=== PATIENT | female | born 2005 | race Caucasian/White ===

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

== ENCOUNTER 2025-03-26 13:04 | Day surgery (SDC) | payer BC, SELFPAY ==
[2025-03-26] VITALS (9 sets, daily range): BP systolic 111–117; BP diastolic 63–80; PULSE 67–72; RESP 12–16; TEMP 36.1–36.6; O2SAT 100; BMI 29.5
[2025-03-26 13:44] LABS: Internal QC Validated? YES +Cl - CLEAR BKGD; Pregnancy, Urine Negative Negative; Record Kit Lot#,Urine Preg 0000947241
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
[2025-03-26] MEDS: Lactated Ringers 1,000 ML 15 ML IV (13:59)
--- NOTE | 2025-03-26 14:05 | PRE.ANES_ITS ---
ASA Classification* ASA Classification ASA Classification: 1 Assessment & Plan Anesthesia* Anesthesia Assessment Anesthesia Assessment: Discussed sedation and/or anesthesia options, risks, benefits, and alternatives with patient/parents/legal guardian/POA. Questions invited. The patient/parents/legal guardian/POA seems to understand and agrees to proceed with anesthesia plan. Reviewed the physical assessment, medical history, allergy history and patient home medications list prior to surgery/procedure/anesthetic and documented any changes. Performed airway and anesthesia risk assessments. Anesthesia Type Anesthesia Type: General History Source History Obtained from:: Patient and Chart Anesthesia Focused Assessment* Temperature: 97.0 F Pulse Rate: 67 Blood Pressure: 114/63 Respiratory Rate: 12 Pulse Ox: 100 Oxygen Delivery Method: Room Air Airway Assessment Mouth opens: >3 cm Mallampati Score: I Teeth Condition: Intact Neck Range of motion (ROM): Full ROM Labs Anesthesia Preop lab: CBC CHEMISTRY COAG Urine Test Negative Negative 03/26/25 13:15 03/26/25 Tst Clinic Negative 07/20/22 13:09 07/20/22 Pre-Assessment Diagnosis/Proposed Procedure Planned Operative Procedure(s): REMOVAL RIGHT LABIAL CYST Anesthesia History Anesthesia History - steam room attendant: Anesthesia History - steam room attendant Hx Hospitalization No 03/13/25 10:08 Any Problems With Anesthesia No 03/13/25 10:08 Cholinesterase deficiency No 03/13/25 10:08 You/Your Family Experience No 03/13/25 10:08 fever (hyperthermia) with Relationship Recent Exposure to Contagious No 03/26/25 13:29 Disease Does patient have nerve No 03/13/25 10:08 stimulator Patient instructed to have device shut off --Does patient have Pacemaker No 03/26/25 13:29 or ICD? When Was Last Pacemaker Check QUESTION #4 FULL TEXT: You/Your Family Experience fever (hyperthermia) with Anesthesia Last Oral Intake Last Oral intake: Last Oral Intake NPO since 20:00 03/26/25 13:29 Meds taken in AM with sips of No 03/26/25 13:29 water? Meds patient instructed to take am of surgery PONV PONV - steam room attendant: PONV - steam room attendant Female Yes 03/13/25 10:08 HX of Motion Sickness No 03/13/25 10:08 HX of N/V After Surgery No 03/13/25 10:08 Non-Smoker Yes 03/13/25 10:08 Duration of Surgery greater Yes 03/13/25 10:08 than 60 minutes Number of Risk Factors 3 03/13/25 10:08 PONV Score Moderate Risk 03/13/25 10:08 Height & Weight Height & Weight: Anesthesia: Height & Weight Height 5 ft 4 in 03/26/25 13:29 Weight: 78 kg 03/26/25 13:29 Body Mass Index (BMI) 29.5 03/26/25 13:29 Respiratory Assessment Respiratory Assessment - steam room attendant: Respiratory Tract Infection Hx - steam room attendant Hx Respiratory Tract Infection No 03/13/25 10:08 STOP Sleep Apnea STOP Sleep Apnea - steam room attendant: STOP Sleep Apnea - steam room attendant Hx Hypertension No 03/13/25 10:08 Hx Sleep Apnea No 03/13/25 10:08 CPAP BIPAP Do you snore loudly (louder No 03/13/25 10:08 than talking or can be heard Do you often feel tired/ No 03/13/25 10:08 fatigued/ sleepy during daytime? Has anyone observed you stop No 03/13/25 10:08 breathing during sleep? STOP Results Negative 03/13/25 10:08 QUESTION #5 FULL TEXT : Do you snore loudly (louder than talking or can be heard through closed doors)? Tobacco Use History Tobacco Use History - steam room attendant: Tobacco Use History - steam room attendant Tobacco Use Smoking Status Never smoker 03/13/25 10:08 Hx Tobacco Use No 03/13/25 10:08 Years Smoking Packs Smoked per Day Smoking Cessation Date was within the last 15 years Hx Smoking Cessation Date Hx Smoking Cessation Counseling Hematologic Medial History Hematologic Hx - steam room attendant: Hematologic Medical Hx - residential property manager Hx of Blood Transfusion No 03/13/25 10:08 Hx of Transfusion in last 3 No 03/13/25 10:08 Months Date of Last Transfusion (if within last 3 months) Ever experience any problems No 03/13/25 10:08 with transfusion(s)? Specify any problems Hx of Preganancy in last 3 No 03/13/25 10:08 Months Nurse Filling Out Transfusion DSCHRIBER 03/13/25 10:08 & Questions: Date: 03/13/25 03/13/25 10:08 Time: 10:09 03/13/25 10:08 Patient unable to answer at this time (ie. confused, unrespo /Reproduction History /Reproductive History - steam room attendant: /Reproductive Hx- steam room attendant Hx Now No 03/13/25 10:08 Gestational Age (in weeks): EDC: Hx Hx Para Hx Section SAB No 03/13/25 10:08 Active Medications Active Medications: Current Medications Generic Name Dose Route Start Last Admin Trade Name Freq PRN Reason Stop Dose Admin Cefazolin Sodium 2 gm/ Sodium 110 mls @ 200 mls/hr 03/26/25 14:30 Chloride IV 03/26/25 15:02 INTRAOP ONE Lactated Ringer's 1,000 mls @ 15 mls/hr 03/26/25 13:15 03/26/25 13:59 IV 15 mls/hr .Q48H RHEA Administration PFSH Medical History Wears contact lenses Wears glasses Marijuana use Low iron Non-smoker Contraceptive management Home Medications ?Medication ?Instructions ?Recorded ?Last Taken ?Type ADRENAL SUPPORT 2 cap PO BID 03/13/25 History dextroamphetamine-amphetamine 5 mg 1 tab PO BID 03/24/25 History tablet mecobalamin (vitamin B12) 1,000 1,000 mcg PO DAILY Unknown History mcg chewable tablet doxycycline hyclate 100 mg capsule 100 mg PO BID 7 day s #14 caps 03/26/25 Unknown Rx oxycodone 5 mg tablet 5 mg PO Q12H PRN pain 5 days #10 03/26/25 Unknown Rx tabs Allergy/AdvReac Type Severity Reaction Status Date / Time No Known Allergies Allergy Verified 03/26/25 13:28 Family History Other Alcoholism Surgical History Hx of oral surgery Hx of wisdom tooth extraction Social History Smoking Status: Never smoker alcohol intake: never substance use type: marijuana caffeine: Yes what type of physical activity do you participate in: walking seatbelt use: always additional social history: Student at [employer], [employer] [facility] [facility] [employer] pt denies vaping, denies edibles. pt denies using aspirin and ibuprofen as needed pt denies blood clots Review of Systems (Anesthesia) ROS Narrative System reviewed and no additional complaints, except as documented.
--- NOTE | 2025-03-26 14:05 | PRE.ANES_ITS ---
ASA Classification* ASA Classification ASA Classification: 1 Assessment & Plan Anesthesia* Anesthesia Assessment Anesthesia Assessment: Discussed sedation and/or anesthesia options, risks, benefits, and alternatives with patient/parents/legal guardian/POA. Questions invited. The patient/parents/legal guardian/POA seems to understand and agrees to proceed with anesthesia plan. Reviewed the physical assessment, medical history, allergy history and patient home medications list prior to surgery/procedure/anesthetic and documented any changes. Performed airway and anesthesia risk assessments. Anesthesia Type Anesthesia Type: General History Source History Obtained from:: Patient and Chart Anesthesia Focused Assessment* Temperature: 97.0 F Pulse Rate: 67 Blood Pressure: 114/63 Respiratory Rate: 12 Pulse Ox: 100 Oxygen Delivery Method: Room Air Airway Assessment Mouth opens: >3 cm Mallampati Score: I Teeth Condition: Intact Neck Range of motion (ROM): Full ROM Labs Anesthesia Preop lab: CBC CHEMISTRY COAG Urine Test Negative Negative 03/26/25 13:15 03/26/25 [facility]st Clinic Negative 07/20/22 13:09 07/20/22 Pre-Assessment Diagnosis/Proposed Procedure Planned Operative Procedure(s): REMOVAL RIGHT LABIAL CYST Anesthesia History 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 When Was Last Pacemaker Check QUESTION #4 FULL TEXT: You/Your Family Experience fever (hyperthermia) with Anesthesia Last Oral Intake Last Oral intake: Last Oral Intake NPO since 20:00 03/26/25 13:29 Meds taken in AM with sips of No 03/26/25 13:29 water? Meds patient instructed to take am of surgery PONV PONV - electrician's assistant: PONV - electrician's assistant Female Yes 03/13/25 10:08 HX of Motion Sickness No 03/13/25 10:08 HX of N/V After Surgery No 03/13/25 10:08 Non-Smoker Yes 03/13/25 10:08 Duration of Surgery greater Yes 03/13/25 10:08 than 60 minutes Number of Risk Factors 3 03/13/25 10:08 PONV Score Moderate Risk 03/13/25 10:08 Height & Weight Height & Weight: Anesthesia: Height & Weight Height 5 ft 4 in 03/26/25 13:29 Weight: 78 kg 03/26/25 13:29 Body Mass Index (BMI) 29.5 03/26/25 13:29 Respiratory Assessment Respiratory Assessment - electrician's assistant: Respiratory Tract Infection Hx - electrician's assistant Hx Respiratory Tract Infection No 03/13/25 10:08 STOP Sleep Apnea STOP Sleep Apnea - electrician's assistant: STOP Sleep Apnea - electrician's assistant Hx Hypertension No 03/13/25 10:08 Hx Sleep Apnea No 03/13/25 10:08 CPAP BIPAP Do you snore loudly (louder No 03/13/25 10:08 than talking or can be heard Do you often feel tired/ No 03/13/25 10:08 fatigued/ sleepy during daytime? Has anyone observed you stop No 03/13/25 10:08 breathing during sleep? STOP Results Negative 03/13/25 10:08 QUESTION #5 FULL TEXT : Do you snore loudly (louder than talking or can be heard through closed doors)? 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 Specify any problems Hx of Preganancy in last 3 No 03/13/25 10:08 Months Nurse Filling Out Transfusion DSCHRIBER 03/13/25 10:08 & Questions: Date: 03/13/25 03/13/25 10:08 Time: 10:09 03/13/25 10:08 Patient unable to answer at this time (ie. confused, unrespo /Reproduction History /Reproductive History - electrician's assistant: /Reproductive Hx- electrician's assistant Hx Now No 03/13/25 10:08 Gestational Age (in weeks): EDC: Hx Hx Para Hx Section SAB No 03/13/25 10:08 Active Medications Active Medications: Current Medications Generic Name Dose Route Start Last Admin Trade Name Freq PRN Reason Stop Dose Admin Cefazolin Sodium 2 gm/ Sodium 110 mls @ 200 mls/hr 03/26/25 14:30 Chloride IV 03/26/25 15:02 INTRAOP ONE Lactated Ringer's 1,000 mls @ 15 mls/hr 03/26/25 13:15 03/26/25 13:59 IV 15 mls/hr .Q48H RHEA Administration PFSH Medical History Wears contact lenses Wears glasses Marijuana use Low iron Non-smoker Contraceptive management Home Medications ?Medication ?Instructions ?Recorded ?Last Taken ?Type ADRENAL SUPPORT 2 cap PO BID 03/13/25 History dextroamphetamine-amphetamine 5 mg 1 tab PO BID 03/24/25 History tablet mecobalamin (vitamin B12) 1,000 1,000 mcg PO DAILY Unknown History mcg chewable tablet doxycycline hyclate 100 mg capsule 100 mg PO BID 7 day s #14 caps 03/26/25 Unknown Rx oxycodone 5 mg tablet 5 mg PO Q12H PRN pain 5 days #10 03/26/25 Unknown Rx tabs Allergy/AdvReac Type Severity Reaction Status Date / Time No Known Allergies Allergy Verified 03/26/25 13:28 Family History Other Alcoholism Surgical History Hx of oral surgery Hx of wisdom tooth extraction Social History Smoking Status: Never smoker alcohol intake: never substance use type: marijuana caffeine: Yes what type of physical activity do you participate in: walking seatbelt use: always additional social history: Student at [employer], [employer] pt denies vaping, denies edibles. pt denies using aspirin and ibuprofen as needed pt denies blood clots Review of Systems (Anesthesia) ROS Narrative System reviewed and no additional complaints, except as documented.
--- NOTE | 2025-03-26 14:30 | CYST_PTH ---
PATIENT: SIRENA CALHOUN LOC: [facility] [place] [facility] [place][id number] AGE/SX: 19/F ROOM: RE03/26/[address]: Dr. Arvind Llamas MD : 2005 BED: DIS: 03/26/2025 SPEC #: [id number] RECD: 03/27/25 08:07 STATUS: JOSE JUSTINE #: [id number] JAYY: 03/26/25 14:[address]: Arvind Llamas DEPT: SURGICAL PATHOLOGY RECD BY: Josh Cruz ENTERED: 03/27/25 10:36 SP TYPE: Cyst OTHR DR: Dr. Nancy Barahnoa MD Tissues: A - CYST B - CYST Procedures: Surgery Specimen Level III HEADER OPERATION: Removal of right labial cyst x2 PRE-OP DIAGNOSIS: Inclusion cyst of vulva TISSUE SUBMITTED: A- Right lateral labial cyst, B- Right medial labial cyst MICROSCOPIC DIAGNOSIS A. Labia, right, lateral, cyst of vulva, removal: Cystically dilated squamous lined invagination with inflammation. B. Labia, right, medial, cyst of vulva, removal: Squamous epithelium and fibrous soft tissue with scarring, chronic inflammation and chronic reactive changes suggestive of cyst rupture. MICROSCOPIC DESCRIPTION Slides are reviewed. GROSS DESCRIPTION Received in 2 formalin containers labeled with the patient's name and date of . Designated as: A. Right lateral labial cyst is a 1.0 x 0.5 cm phillips portion of skin, devoid of orientation and excised to a maximum depth of 0.8 cm (inked black). Eccentric on the epidermal surface is a 0.4 x 0.3 cm smooth, glistening, focally peeling, and firm area abutting the peripheral edge. The specimen is trisected revealing phillips, rubbery to fibrotic cut surfaces with a possible, ingrown hair. Entirely submitted in 1 cassette. B. Right medial labial cyst is a 1.4 x 0.8 x 0.3 cm phillips-pink to red, shaggy portion of tissue. No skin is identified. Sectioning reveals phillips and fibrotic cut surfaces. Entirely submitted in 1 cassette. VT 03/27/2025 CPT:[id number]
--- NOTE | 2025-03-26 14:30 | CYST_PTH ---
PATIENT: SIRENA CALHOUN LOC: [facility] – [place] U#:[id number] AGE/SX: 19/F ROOM: RE03/26/[address]: Dr. Arvind Llamas MD : 2005 BED: DIS: 03/26/2025 SPEC #: [id number] RECD: 03/27/25 08:07 STATUS: JOSE JUSTINE #: [id number] JAYY: 03/26/25 14:[address]: Arvind Llamas DEPT: SURGICAL PATHOLOGY RECD BY: Josh Cruz ENTERED: 03/27/25 10:36 SP TYPE: Cyst OTHR DR: Dr. Nancy Barahona MD Tissues: A - CYST B - CYST Procedures: Surgery Specimen Level III HEADER OPERATION: Removal of right labial cyst x2 PRE-OP DIAGNOSIS: Inclusion cyst of vulva TISSUE SUBMITTED: A- Right lateral labial cyst, B- Right medial labial cyst MICROSCOPIC DIAGNOSIS A. Labia, right, lateral, cyst of vulva, removal: Cystically dilated squamous lined invagination with inflammation. B. Labia, right, medial, cyst of vulva, removal: Squamous epithelium and fibrous soft tissue with scarring, chronic inflammation and chronic reactive changes suggestive of cyst rupture. MICROSCOPIC DESCRIPTION Slides are reviewed. GROSS DESCRIPTION Received in 2 formalin containers labeled with the patient's name and date of . Designated as: A. Right lateral labial cyst is a 1.0 x 0.5 cm phillips portion of skin, devoid of orientation and excised to a maximum depth of 0.8 cm (inked black). Eccentric on the epidermal surface is a 0.4 x 0.3 cm smooth, glistening, focally peeling, and firm area abutting the peripheral edge. The specimen is trisected revealing phillips, rubbery to fibrotic cut surfaces with a possible, ingrown hair. Entirely submitted in 1 cassette. B. Right medial labial cyst is a 1.4 x 0.8 x 0.3 cm phillips-pink to red, shaggy portion of tissue. No skin is identified. Sectioning reveals phillips and fibrotic cut surfaces. Entirely submitted in 1 cassette. OR 03/27/2025 CPT:[id number]
[2025-03-26] MEDS: Bupiv/Epi 0.25% 30 ML Vial ×2 (15:22→15:52)
[2025-03-26] MEDS: Bacitracin 500 UNITS/GM PACKET (16:00)
--- NOTE | 2025-03-26 16:23 | PCM.POST.ANE ---
Anesthesia: Postop Eval I Current Vital Signs Temperature: 97 F Pulse Rate: 67 Blood Pressure: 114/63 Respiratory Rate: 16 Pulse Ox: 100 Oxygen Delivery Method: Room Air Assessment Airway patent: Yes Spontaneous unlabored respirations: Yes Mental status: Awake and Calm nausea: No Vomiting: No Anesthesia Complication: No Fluid Hydration Crystalloid volume administer (ml): 800 Total IV fluid infused: 800 Progress Note Anesthesia document: Postop Eval 1 completed: Yes
--- NOTE | 2025-03-26 17:42 | POSTOPAN2_ITS ---
Anesthesia Postop Eval I Sum Postop Eval Completion status Anesthesia document: Postop Eval 1 completed: Yes Anesthesia Postop Eval I Summary Anesthesia Postop Eval I Summary: Anesthesia Postop Eval I: Assessment Summary Airway patent Yes 03/26/25 16:23 PLASTIC SHEETS FINISHING SUPERVISOR.[email or web address] Spontaneous unlabored Yes 03/26/25 16:23 PLASTIC SHEETS FINISHING SUPERVISOR.[email or web address] respirations Mental status Awake,Calm 03/26/25 16:23 PLASTIC SHEETS FINISHING SUPERVISOR.[email or web address] nausea No 03/26/25 16:23 PLASTIC SHEETS FINISHING SUPERVISOR.[email or web address] Vomiting No 03/26/25 16:23 PLASTIC SHEETS FINISHING SUPERVISOR.[email or web address] Anesthesia Postop Eval I: Fluid Summary Crystalloid volume administer 800 03/26/25 16:23 PLASTIC SHEETS FINISHING SUPERVISOR.JBLOU (ml) Colloids volume administered ( ml) Blood Product volume administered (ml) Total IV fluid infused 800 03/26/25 16:23 PLASTIC SHEETS FINISHING SUPERVISOR.JBLOU Anesthesia Postop Eval I: Summary Notes Anesthesia Complication No 03/26/25 16:23 PLASTIC SHEETS FINISHING SUPERVISOR.JBLOU Anesthesia Complication Comment: Post-operative progress note Anesthesia: Postop Eval II Evaluation Mental status: Awake and Calm Pain Level: 1 nausea: No Vomiting: No Complications Anesthesia Complication: No
--- NOTE | 2025-03-26 17:42 | POSTOPAN2_ITS ---
Anesthesia Postop Eval I Sum Postop Eval Completion status Anesthesia document: Postop Eval 1 completed: Yes Anesthesia Postop Eval I Summary Anesthesia Postop Eval I Summary: Anesthesia Postop Eval I: Assessment Summary Airway patent Yes 03/26/25 16:23 RESPIRATORY CARE PRACTITIONER.[email or web address] Spontaneous unlabored Yes 03/26/25 16:23 RESPIRATORY CARE PRACTITIONER.[email or web address] respirations Mental status Awake,Calm 03/26/25 16:23 RESPIRATORY CARE PRACTITIONER.JBLOU nausea No 03/26/25 16:23 RESPIRATORY CARE PRACTITIONER.[email or web address] Vomiting No 03/26/25 16:23 RESPIRATORY CARE PRACTITIONER.[email or web address] Anesthesia Postop Eval I: Fluid Summary Crystalloid volume administer 800 03/26/25 16:23 RESPIRATORY CARE PRACTITIONER.JBLOU (ml) Colloids volume administered ( ml) Blood Product volume administered (ml) Total IV fluid infused 800 03/26/25 16:23 RESPIRATORY CARE PRACTITIONER.JBLOU Anesthesia Postop Eval I: Summary Notes Anesthesia Complication No 03/26/25 16:23 RESPIRATORY CARE PRACTITIONER.JBLOU Anesthesia Complication Comment: Post-operative progress note Anesthesia: Postop Eval II Evaluation Mental status: Awake and Calm Pain Level: 1 nausea: No Vomiting: No Complications Anesthesia Complication: No
--- NOTE | 2025-03-26 17:42 | PCM.POSTANE2 ---
Anesthesia Postop Eval I Sum Postop Eval Completion status Anesthesia document: Postop Eval 1 completed: Yes Anesthesia Postop Eval I Summary Anesthesia Postop Eval I Summary: Anesthesia Postop Eval I: Assessment Summary Airway patent Yes 03/26/25 16:23 NEWS COPY EDITOR.[email or web address] Spontaneous unlabored Yes 03/26/25 16:23 NEWS COPY EDITOR.[email or web address] respirations Mental status Awake,Calm 03/26/25 16:23 NEWS COPY EDITOR.[email or web address] nausea No 03/26/25 16:23 NEWS COPY EDITOR.[email or web address] Vomiting No 03/26/25 16:23 NEWS COPY EDITOR.[email or web address] Anesthesia Postop Eval I: Fluid Summary Crystalloid volume administer 800 03/26/25 16:23 NEWS COPY EDITOR.[email or web address] (ml) Colloids volume administered ( ml) Blood Product volume administered (ml) Total IV fluid infused 800 03/26/25 16:23 NEWS COPY EDITOR.[email or web address] Anesthesia Postop Eval I: Summary Notes Anesthesia Complication No 03/26/25 16:23 NEWS COPY EDITOR.JBLOU Anesthesia Complication Comment: Post-operative progress note Anesthesia: Postop Eval II Evaluation Mental status: Awake and Calm Pain Level: 1 nausea: No Vomiting: No Complications Anesthesia Complication: No
--- NOTE | 2025-03-26 17:42 | PCM.POSTANE2 ---
Anesthesia Postop Eval I Sum Postop Eval Completion status Anesthesia document: Postop Eval 1 completed: Yes Anesthesia Postop Eval I Summary Anesthesia Postop Eval I Summary: Anesthesia Postop Eval I: Assessment Summary Airway patent Yes 03/26/25 16:23 EXECUTIVE TEAM LEADER.[email or web address] Spontaneous unlabored Yes 03/26/25 16:23 EXECUTIVE TEAM LEADER.JBLOU respirations Mental status Awake,Calm 03/26/25 16:23 EXECUTIVE TEAM LEADER.JBLOU nausea No 03/26/25 16:23 EXECUTIVE TEAM LEADER.JBLOU Vomiting No 03/26/25 16:23 EXECUTIVE TEAM LEADER.JBLOU Anesthesia Postop Eval I: Fluid Summary Crystalloid volume administer 800 03/26/25 16:23 EXECUTIVE TEAM LEADER.JBLOU (ml) Colloids volume administered ( ml) Blood Product volume administered (ml) Total IV fluid infused 800 03/26/25 16:23 EXECUTIVE TEAM LEADER.JBLOU Anesthesia Postop Eval I: Summary Notes Anesthesia Complication No 03/26/25 16:23 EXECUTIVE TEAM LEADER.JBLOU Anesthesia Complication Comment: Post-operative progress note Anesthesia: Postop Eval II Evaluation Mental status: Awake and Calm Pain Level: 1 nausea: No Vomiting: No Complications Anesthesia Complication: No
--- NOTE | 2025-03-27 15:29 | PCM.OPRPT ---
Operative Report (Standard) Operative Information Date of Procedure: 03/26/25 Pre-Operative Diagnosis: Right labia majora cysts x 2 Post-Operative Diagnosis: Same Surgery/Procedure Performed: 1) Excision right medial labia majora cyst, 1.5 x 0.75 cm (CPT: 58496) 2) Excision right lateral labia majora cyst, 0.5 x 0.5 cm (CPT: 84312) 3) Intermediate closure right labia majora wounds, 4 cm (CPT: 46907) bander: Yes [employer]als Hand Engraver: Tracy Mckeon Tasks completed by critical care physician assistant: Retracting Type of Anesthesia: General/Supplemental (7 cc of 0.25% Marcaine with 1:200,000 epinephrine ) RN Documented Start/Stop Times: Operation Date: 03/26/25 14:30 Case Time Into Pre-Op 03/26/25 13:10 Anesthesia Start 03/26/25 14:59 Into Room 03/26/25 14:59 Procedure Start 03/26/25 15:25 Procedure End 03/26/25 16:04 Anesthesia End 03/26/25 16:10 Out of Room 03/26/25 16:10 Into Recovery 03/26/25 16:12 Out of Recovery 03/26/25 16:32 Into Phase II Recovery 03/26/25 16:33 Out of Phase II 03/26/25 17:20 Procedure Start Time: 15:25 Procedure Stop Time: 16:04 Select all DRAINS/GRAFTS/IMPLANTS that apply: None Estimated Blood Loss: 5 cc Specimen collected: Yes Description of specimen(s) removed: Right medial labia majora cyst, right lateral labia major cyst Also culture swab Description of surgery: Indications: Gloria Lane is a delightful 19-year-old female who has right labial cysts. Presents today for excision and understands risks, benefits, and alternatives to excision. Procedure details: Patient was correctly identified in preoperative holding and the cyst were marked. She was in agreement with the site markings and the operative plan. She was taken back to the operating room where she was administered general anesthesia and positioned carefully in a lithotomy position with care taken to pad all bony prominences. She was prepped and draped in sterile fashion and a proper timeout was performed. Local anesthesia was injected and given time to take effect. A 15 blade scalpel was used to make a direct elliptical excision longitudinally over the right medial labia majora cyst. Careful dissection around the cyst wall/scar around the cyst was then carried out with tenotomy scissors around the cyst wall with care taken to protect underlying and adjacent structures. The cyst was removed in 1 piece and sent for pathology. It measured 1.5 x 0.75 cm. The cyst cavity/scar around the cyst had purulent fluid and was therefore cultured. Attention was then turned to the other cyst on the lateral labia majora. 15 blade scalpel was made to make a direct elliptical excision over the cyst sinus and circumferential dissection was taken out with tenotomy scissors with careful dissection. The cyst was removed in 1 piece and sent to pathology and it measured 0.5 x 0.5 cm. These wounds were irrigated with copious amounts of Irrisept and normal saline and hemostasis was obtained with Bovie electrocautery. They were then closed in layers with 4-0 Monocryl deep dermal sutures followed by 4-0 Monocryl running subcuticular suture on the lateral cyst and interrupted 6-0 fast absorbing suture for the medial cyst. This was a total intermediate closure of 4 cm. bacitracin was applied. Tucks pads were then applied with witch glo. Patient tolerated the procedure well and was awakened and taken the PACU in stable condition. Postoperative plan: Follow-up in 1 week for wound check and for review of pathology. Surgical Findings: Consistent with hydradenitis cyst with fluid, but also possible inclusion cyst. F/u path Complications Complications: No Admit VTE Documentation VTE Mechan Device Prophylaxis: SCD's
--- NOTE | 2025-03-27 15:29 | PCM.OPRPT ---
Operative Report (Standard) Operative Information Date of Procedure: 03/26/25 Pre-Operative Diagnosis: Right labia majora cysts x 2 Post-Operative Diagnosis: Same Surgery/Procedure Performed: 1) Excision right medial labia majora cyst, 1.5 x 0.75 cm (CPT: 28561) 2) Excision right lateral labia majora cyst, 0.5 x 0.5 cm (CPT: 39847) 3) Intermediate closure right labia majora wounds, 4 cm (CPT: 27098) surgical appliances salesperson: Yes Tanning Consultant: Tracy Mckeon Tasks completed by bilingual legal assistant: Retracting Type of Anesthesia: General/Supplemental (7 cc of 0.25% Marcaine with 1:200,000 epinephrine ) RN Documented Start/Stop Times: Operation Date: 03/26/25 14:30 Case Time Into Pre-Op 03/26/25 13:10 Anesthesia Start 03/26/25 14:59 Into Room 03/26/25 14:59 Procedure Start 03/26/25 15:25 Procedure End 03/26/25 16:04 Anesthesia End 03/26/25 16:10 Out of Room 03/26/25 16:10 Into Recovery 03/26/25 16:12 Out of Recovery 03/26/25 16:32 Into Phase II Recovery 03/26/25 16:33 Out of Phase II 03/26/25 17:20 Procedure Start Time: 15:25 Procedure Stop Time: 16:04 Select all DRAINS/GRAFTS/IMPLANTS that apply: None Estimated Blood Loss: 5 cc Specimen collected: Yes Description of specimen(s) removed: Right medial labia majora cyst, right lateral labia major cyst Also culture swab Description of surgery: Indications: Gloria Lane is a delightful 19-year-old female who has right labial cysts. Presents today for excision and understands risks, benefits, and alternatives to excision. Procedure details: Patient was correctly identified in preoperative holding and the cyst were marked. She was in agreement with the site markings and the operative plan. She was taken back to the operating room where she was administered general anesthesia and positioned carefully in a lithotomy position with care taken to pad all bony prominences. She was prepped and draped in sterile fashion and a proper timeout was performed. Local anesthesia was injected and given time to take effect. A 15 blade scalpel was used to make a direct elliptical excision longitudinally over the right medial labia majora cyst. Careful dissection around the cyst wall/scar around the cyst was then carried out with tenotomy scissors around the cyst wall with care taken to protect underlying and adjacent structures. The cyst was removed in 1 piece and sent for pathology. It measured 1.5 x 0.75 cm. The cyst cavity/scar around the cyst had purulent fluid and was therefore cultured. Attention was then turned to the other cyst on the lateral labia majora. 15 blade scalpel was made to make a direct elliptical excision over the cyst sinus and circumferential dissection was taken out with tenotomy scissors with careful dissection. The cyst was removed in 1 piece and sent to pathology and it measured 0.5 x 0.5 cm. These wounds were irrigated with copious amounts of Irrisept and normal saline and hemostasis was obtained with Bovie electrocautery. They were then closed in layers with 4-0 Monocryl deep dermal sutures followed by 4-0 Monocryl running subcuticular suture on the lateral cyst and interrupted 6-0 fast absorbing suture for the medial cyst. This was a total intermediate closure of 4 cm. bacitracin was applied. Tucks pads were then applied with witch glo. Patient tolerated the procedure well and was awakened and taken the PACU in stable condition. Postoperative plan: Follow-up in 1 week for wound check and for review of pathology. Surgical Findings: Consistent with hydradenitis cyst with fluid, but also possible inclusion cyst. F/u path Complications Complications: No Admit VTE Documentation VTE Mechan Device Prophylaxis: SCD's
== END 2025-03-26 17:21 | disposition home or self-care (01) ==
LOC: SDC 13:05 → AC 13:07
PROVIDERS: Anesthesiology; PCP Internal Medicine; Referring Provider Surgery Plastic and Reconstructive Surgery; Visit Provider Surgery Plastic and Reconstructive Surgery
PROC: (CPT 11422; principal; 2025-03-26 14:20)
DX: N90.7 Vulvar cyst (principal)
CPT/HCPCS: 11422; 11420; 12042; 00940; 81025; 87070; 87075; 87077; 87186; 87205; 88304; J2405

== ENCOUNTER 2025-08-02 10:37 | Emergency (ER) | payer OTHER, SELFPAY ==
[2025-08-02 10:37] VITALS: BP 126/91; PULSE 90; RESP 16; TEMP 37.2; O2SAT 99; BMI 28.0
--- NOTE | 2025-08-02 10:57 | CT_ITS ---
PROCEDURE: ABDOMEN/PELVIS WITHOUT CONT 08/02/2025 REASON FOR EXAM: ABDOMINAL PAIN TECHNIQUE: Procedure Code: CTABDPEL Modality: CT Procedure: ABDOMEN/PELVIS WITHOUT CONT Noncontrast technique limits evaluation of the abdominal and pelvic viscera. Coronal and Sagittal reconstruction series were provided. One or more dose reduction techniques were used (e.g., Automated exposure control, adjustment of the mA and/or kV according to patient size, use of iterative reconstruction technique). RADIATION DOSE SUMMARY: CTDlvol: 27.25 mGy DLP: 731.82 mGycm COMPARISON: None FINDINGS: Lung bases: Clear Liver: Normal size. No obvious mass. Gallbladder: Unremarkable Spleen: Normal size. Pancreas: Normal size. No surrounding inflammation. Adrenals: Unremarkable Kidneys: No urolithiasis. No hydronephrosis. Bladder: Incompletely distended Reproductive Organs: I suspect there is a diaphragm within the pelvis Bowel: Nondistended fluid-filled bowel loops consistent with diffuse enteritis. Appendix: Not visualized, no CTA evidence of acute inflammation in the right lower quadrant Lymph nodes: Multiple subcentimeter in short axis dimension mesenteric and retroperitoneal lymph nodes consistent with mesenteric lymphadenitis Vasculature: The abdominal aorta and IVC contours are normal. Noncontrast technique limits evaluation. Peritoneum / Retroperitoneum: No free fluid or air Bones: Normal CT/Abdomen/Pelvis without Cont IMPRESSION: No suspicious solid organ abnormality Nondistended fluid-filled bowel loops consistent with diffuse enteritis Subcentimeter mesenteric and retroperitoneal lymph nodes consistent with mesent lacho lymphadenitis Reading Location: [id number]
--- NOTE | 2025-08-02 10:59 | EX.ED.DYSGE1 ---
HPI History of Present Illness Chief Complaint: Abd Pain Detail of Chief Complaint: Sinus pressure and cough and vomiting and diarrhea Informant: patient Narrative Narrative: Patient presents with multiple complaints. Initially started with some sinus congestion 2 weeks ago as well as cough. 4 days ago she started with nausea and vomiting and vomited for 2 days. Vomiting started again this morning. She is also had diarrhea today x 3. Denies any blood in her stool. She states that she can taste some blood in her vomit this morning. She denies fever. Also complaining of right sided abdominal pain. Currently on her menstrual period. [facility] Medical History (Updated 08/02/25 @ 13:[address] Cliff Arias, DO) Hidradenitis suppurativa Wears contact lenses Wears glasses Marijuana use Low iron Non-smoker Contraceptive management Home Medications Medication Instructions Recorded Last Taken Type ADRENAL SUPPORT 2 cap PO BID 03/13/25 03/24/25 History dextroamphetamine-amphetamine 5 mg 1 tab PO BID 03/13/25 03/24/25 History tablet mecobalamin (vitamin B12) 1,000 1,000 mcg PO DAILY 03/13/25 Unknown History mcg chewable tablet doxycycline hyclate 50 mg capsule 50 mg PO QDAY 05/30/25 Unknown History Allergy/AdvReac Type Severity Reaction Status Date / Time No Known Allergies Allergy Verified 08/02/25 10:38 Family History Other Alcoholism Surgical History Hx of oral surgery Hx of wisdom tooth extraction Social History Smoking Status: Never smoker alcohol intake: never substance use type: marijuana caffeine: Yes what type of physical activity do you participate in: walking seatbelt use: always additional social history: Student at [employer] pt denies vaping, denies edibles. pt denies using aspirin and ibuprofen as needed pt denies blood clots ROS ROS ED Review of Systems ROS Unobtainable: other Constitutional Constitutional ED: Reports lethargy; Denies chills, fever(s), sweats or weight loss Eyes Eyes: Denies blurry vision, change in vision or diplopia ENT ENT ED: Reports rhinorrhea; Denies sore throat Cardiovascular Cardiovascular: Denies chest pain, orthopnea or racing heartbeat Respiratory/Chest Respiratory/Chest: Reports cough; Denies dyspnea, dyspnea on exertion, orthopnea or sputum Gastrointestinal Gastrointestinal: Reports abdominal pain, diarrhea, nausea and vomiting Genitourinary Genitourinary ED: Denies dysuria, hematuria or urinary frequency Musculoskeletal Musculoskeletal: Denies arthralgias, back pain, myalgias or neck pain Integumentary Denies abscess, Abrasions or rash Neurologic Neurologic: Denies headache(s) or weakness Psychiatric Psychiatric: Denies anxiety, depression or suicidal thoughts Endocrine Endocrinology: Denies polydipsia, polyphagia or polyuria Hematologic/Lymphatic Hematologic/Lymphatic: Denies easy bleeding, easy bruising or lymphadenopathy Allergic/Immunologic Allergic/Immunologic ED: Denies mouth swelling, tongue swelling or urticaria EXAM Physical Exam Const Vital Signs: 08/02/25 10:37 08/02/25 11:22 Temperature 99 F Temperature Source Temporal Pulse Rate 90 77 Respiratory Rate 16 17 Blood Pressure 126/91 H 116/79 Blood Pressure Mean 102 91 Pulse Ox 99 99 Oxygen Delivery Method Room Air Room Air Positive well nourished and well developed General Appearance ED: well developed and NAD HEENT Reports TM's clear and moist mucous membranes HEENT Narrative: No tenderness over the maxillary or frontal sinuses. normocephalic and atraumatic; Negative for trauma or tenderness Tympanic Membrane ED: Yes TM's clear Eyes PERRL and EOMs intact bilaterally General Eye ED: Negative for pale conjunctiva or scleral icterus Neck no lymphadenopathy, supple and no JVD General: Negative for tenderness Chest Wall inspection of chest normal and palpation of chest normal Chest: Negative for tenderness Resp normal respiratory effort and clear to auscultation bilaterally Effort and Inspection: Negative for respiratory distress or pain with movement Auscultation: Negative for rhonchi, wheezes or diminished lung sounds Cardio regular rate, regular rhythm, S1 normal heart sound, S2 normal heart sound and no murmurs Peripheral Pulses: pulses 2+ throughout GI normal to inspection, nondistended, normoactive bowel sounds, soft to palpation, non-tender, non-distended and no masses GI Narrative: Diffuse tenderness over the right upper quadrant and right lower quadrant with guarding. There is no rebound, rigidity, or peritoneal signs. No mass palpated Back/Spine no CVA tenderness and no thoracic nor lumbar tenderness Extremity normal to inspection General Extremety ED: Negative for edema General Extremity: Negative for edema Neuro oriented x3, CN's II-XII intact bilaterally, no sensory deficits noted and gait normal Sensorium / Orientation: awake, alert, oriented to person, oriented to place and oriented to time Motor Exam: strength 5/5 throughout and strength abnormal Psych mental status grossly normal Skin no rashes or lesions noted and no wounds MDM MDM MDM Narrative Medical decision making narrative: Patient presents to the emergency department with complaint not feeling well for several weeks. She had some upper respiratory symptoms and then just more recently started with nausea vomiting and diarrhea. She has had some abdominal discomfort. Clinically she looks well. IV line established. CBC with differential obtained showed a normal white count of 8.4 with hemoglobin 14.5 and platelet count 260. Chemistries unremarkable. LFTs were normal. hCG was negative. Urinalysis showed no signs of infection. COVID flu and RSV was negative. Chest x-ray unremarkable. CT scan of the abdomen pelvis showed some fluid-filled bowel consistent with enteritis otherwise no acute process. While in department she received a liter Mustain fluid bolus and was given Zofran. She is feeling improved. She will be discharged to home suspect likely viral syndrome. Advised to follow-up with primary care physician in 3 to 5 days. Lab Data Attestation: I reviewed the patient's lab results. Labs: Laboratory Results - last 24 hr 08/02/25 08/02/25 11:09 11:37 WBC 8.4 RBC 5.29 Hgb 14.5 Hct 44.5 MCV 84.1 MCH 27.4 MCHC 32.6 RDW Std Deviation 42.1 RDW Coeff of Tiffany 13.7 Plt Count 260 MPV 9.7 Immature Gran % (Auto) 0.500 Neut % (Auto) 67.4 Lymph % (Auto) 22.0 Cecil % (Auto) 8.2 Eos % (Auto) 1.5 Baso % (Auto) 0.4 Absolute Neuts (auto) 5.7 Absolute Lymphs (auto) 1.85 Nucleated RBC % 0 Sodium 140 Potassium 4.0 Chloride 105 Carbon Dioxide 24.7 Anion Gap 11 BUN 7 Creatinine 0.78 Estim Creat Clear Calc 115.66 Est GFR (MDRD) Non-Af 110 BUN/Creatinine Ratio 9.2 L Glucose 96 Calcium 8.9 Total Bilirubin 0.40 AST 28 ALT 22 Alkaline Phosphatase 65 Total Protein 7.3 Albumin 4.4 Globulin 2.9 Albumin/Globulin Ratio 1.5 Serum , Qual NEGATIVE Urine Color Yellow Urine Clarity Clear Urine pH 7.0 Ur Specific [place] 1.010 Urine Protein 15 H Urine Glucose (UA) Normal Urine Ketones Negative Urine Occult Blood Negative Urine Nitrite Negative Urine Bilirubin Negative Urine Urobilinogen Normal Ur Leukocyte Esterase Negative Urine RBC 0 SEEN Urine WBC 0 SEEN Ur Squamous Epith Cells 0-5 SEEN Urine Bacteria 0 SEEN Urine Mucus 0 SEEN Radiography Diagnostic Testing: Clinical Impression(s) from Imaging Studies Abdomen/Pelvis CT 08/02/25 10:57 IMPRESSION: No suspicious solid organ abnormality Nondistended fluid-filled bowel loops consistent with diffuse enteritis Subcentimeter mesenteric and retroperitoneal lymph nodes consistent with mesenteric lymphadenitis Reading Location: [facility] Chest X-Ray 08/02/25 12:00 IMPRESSION: No evidence of acute cardiopulmonary abnormality. Reading Location: [facility] Discharge Plan Triage Chief Complaint: Abd Pain ED Provider: Cliff Arias Dx/Rx/DC Orders Clinical Impression: Acute viral syndrome Instructions: ED Viral Syndrome (Adult) Prescriptions: No Action doxycycline hyclate 50 mg capsule 50 mg PO QDAY dextroamphetamine-amphetamine 5 mg tablet 1 tab PO BID mecobalamin (vitamin B12) 1,000 mcg tablet,chewable 1,000 mcg PO DAILY ADRENAL SUPPORT 2 cap PO BID Primary Care Provider: Nancy Barahona Referrals: Nancy Barahona MD [Primary Care Provider, Internal Medicine] - 3-5 Days Print Language: Armenian Disposition Disposition: Home, Self Care
[2025-08-02] MEDS: 0.9% Normal Saline (1000mL) 1,000 ML 1000 ML IV (11:11)
[2025-08-02 11:22] VITALS: BP 116/79; PULSE 77; RESP 17; O2SAT 99
[2025-08-02 11:23] LABS: Hematocrit 44.5 % (37-47); Hemoglobin 14.5 g/dL (12.0-15.0); Immature Granulocytes Count 0.040 X10^3/uL (0.0-0.0); Mean Corp Hgb Conc 32.6 g/dL (32-36); Mean Corpuscular Volume 84.1 fL (81-99); Mean Platelet Vol. 9.7 fl (6.2-12.0); NRBC Flagged by Analyzer 0 % (0-5); Platelet Count 260 K/mm3 (150-450); RBC Distribution Width CV 13.7 % (11.6-14.6); RBC Distribution Width SD 42.1 fl (35.1-43.9); Red Blood Count 5.29 M/mm3 (4.2-5.4); White Blood Count 8.4 K/mm3 (4.4-11.0)
[2025-08-02 11:42] LABS: Mucous, Urine 0 SEEN /hpf (<or=2+); Red Blood Cells-Urine 0 SEEN /hpf (0-5)
[2025-08-02 11:45] LABS: Color, Urine Yellow (Yellow); Glucose, Dipstick Normal (Normal); Ketone-Dipstick Negative (Negative); Leukocyte Esterase-Dipstick Negative /ul (Negative); Nitrite-Dipstick Negative (Negative); Occult Blood-Urine Negative /ul (Negative); Protein-Dipstick 15 mg/dl (Negative); Specific Gravity, Urine 1.010 (1.002-1.030); Urine Bilirubin Dipstick Negative (Negative)
--- OUTSIDE RECORDS SUMMARY | 2025-08-02 11:45 | XMS RPT_ITS | CCD ---
Author Organization [facility] ion Partnership [facility] Care Team Providers Care Envelope Stuffer Name Role Phone Deonna Calhoun Unavailable Micaela Palacios Unavailable Unavailable Charli, KASSY Unavailable Unavailable Messenger, Audelia Unavailable Unavailable Manchak, Sharita Unavailable Unavailable Charli, KASSY Unavailable Unavailable Manchak, Sharita Unavailable Unavailable Slarb, Isabel Unavailable Unavailable Messenger, Audelia Unavailable Unavailable Gravius, Yanni Unavailable Unavailable Cross, Lilian Unavailable Unavailable Unavailable Unavailable Unique DO, Deonna Unavailable Gravius FRAME FIXER, Yanni Unavailable Unavailable Cross WORKFORCE MANAGEMENT MANAGER, Lilian Unavailable Unavailable Unavailable Unavailable Jun KHAN, Nancy Dominguez Unavailable Charli WORKFORCE MANAGEMENT MANAGER, KASSY Unavailable Unavailable Chrissy PHD, Dr. Gallo Navarrete Unavailable Ishmael FRAME FIXER, Kristen Unavailable Unavailabl e Yonis FRAME FIXER, Kristen Unavailable Unavailable Fast DO, Ernestina A Unavailable Manchak FRAME FIXER, Sharita Unavailable Unavailable Concha WORKFORCE MANAGEMENT MANAGER, Keena Unavailable Unavailable Slarb WORKFORCE MANAGEMENT MANAGER, Isabel Unavailable Unavailable Unavailable Unavailable Unique DO, Deonna Unavailable Fast DO, Ernestina A Unavailable Care Physician, No Primary Primary Care Provider Unavailable Care Physician, No Primary Referring Provider Un available Lexa OTOLARYNGOLOGY SURGEON, OTOLARYNGOLOGY SURGEON-C Heide Attending Provider Care Physician, No Primary Primary Care Provider Unavailable Care Physician, No Primary Referring Provider Un available Lexa OTOLARYNGOLOGY SURGEON, OTOLARYNGOLOGY SURGEON-C Heide Attending Provider Moisés ARREOLAN, Arnulfo Unavailable Unavailable Unavailable Unavailable ALLYN WOMACK MD Attending Unavailable PHYSICIAN, NOT RECORDED Primary Care Unavaila ble PHYSICIAN, NOT RECORDED Primary Care Physician U lynnailmelody PHYSICIAN, NOT RECORDED Primary Care UnavailALLYN Owens MD Attending Unavailable Care Physician, No Primary Primary Care Provider Unavailable Care Physician, No Primary Referring Provider Un available Muriel KHAN, Dr. Samuels Attending Provider Muriel KHAN, Dr. Samuels Referring Provider Jun KHAN, Dr. Cruz Primary Care Provider Muriel KHAN, Dr. Samuels Other Provider Jun KHAN, Dr. Cruz Referring Provider Muriel KHAN, Dr. Samuels Referring Provider [phone] Muriel KHAN, Dr. Samuels Other Provider Jun KHAN, Dr. Cruz Primary Care Provider Shabana Llamas Attending Unavailable SisShabana hanna Referring Unavailable Bonezzi, Nancy Primary Care Unavailable Bonezzi, Nancy Primary Care Unavailable SiskaShabana Attending Unavailable Bonezzi, Nancy Referring Unavailable Bonezzi, Nanyc Primary Care Unavailable Siska, Shabana Attending Unavailable Bonezzi, Nancy Referring Unavailable Siska, Shabana Attending Unavailable Siska, Shabana Referring Unavailable Siska, Shabana Consulting Unavailable Bonezzi, Nancy Primary Care Unavailable Siska, Shabana Attending Unavailable Bonezzi, Nancy Primary Care Unavailable Siscyndi, Shabana Referring Unavailable Siska, Shabana Consulting Unavailable Care Physician, No Primary Primary Care Unava ilable Care Physician, No Primary Referring Unava ilable SiskaShabana Attending Unavailable Bonezzi, Nancy Primary Care Unavailable Kosta Swain Attending Unavailable Bonezzi, Nancy Referring Unavailable Bonezzi, Nancy Primary Care Unavailable SiskaShabana Attending Unavailable Bonezzi, Nancy Referring Unavailable Bonezzi, Nancy Primary Care Unavailable Siska, Shabana Attending Unavailable Bonezzi, Nancy Referring Unavailable Medications Current Medications Medication Drug Class(es) Dates Sig (Normalized) Sig (Original) ADRENAL SUPPORT (6 sources) Start: 03-13-2025 ADRENAL SUPPORT Active 2 NMA PO TWICE A DAY March 13, 2025 12:00am amphetamine aspartate 1.25 mg / amphetamine sulfate 1.25 mg / dextroamphetamine saccharate 1.25 mg / dextroamphetamine sulfate 1.25 mg oral tablet (6 sources) Central Nervous System Stimulant Start: 03-13-2025 Dextroamphetamine -Amphetamine 5 mg tablet Active 1 {tbl} PO TWICE A DAY March 13, 2025 12:00am doxycycline hyclate 50 mg oral capsule (16 sources) Tetracycline-cl ass Drug Start: 05-30-2025 take 1 capsule by mouth once daily Doxycycline Hyclate 50 mg capsule Active 50 mg PO daily May 30, 2025 12:00am Start: 03-26-2025 End: 04-03-2025 take 1 capsule by mouth twice daily Doxycycline Hyclate 100 mg capsule Discontinued 100 mg PO TWICE A DAY 14 7 0 March 26, 2025 12:00am April 03, 2025 2:24pm Start: 06-04-2021 End: 07-12-2021 take 1 capsule by mouth twice daily Doxycycline Hyclate 100 mg capsule Discontinued 100 mg PO TWICE A DAY 14 0 June 04, 2021 12:00am July 12, 2021 1:49pm escitalopram 10 mg oral tablet (20 sources) Serotonin Reuptake Inhibitor Start: 07-16-2024 escitalopram 10 mg oral tablet Take 1/2 tablet by mouth every night at bedtime for five days, then increase to 1 tablet thereafter Start Date: 07/16/24 Status: Ordered Start: 12-03-2018 take 1 tablet by kavon th once daily Lexapro 10 MG Oral Tablet 1 (one) Tablet qd for 30 days Quantity: 30 {Tablet} Refills: 3 Ordered: 05-Aug-2020 Deonna Calhoun DO, DO, Kathleen Start : 03-Dec-2018 Active mecobalamin 1 mg chewable tablet (6 sources) Start: 03-13-2025 take 1 tablet by mouth once daily Mecobalamin (Vitamin B12) 1,000 mcg tablet,chewable Active 1000 ug PO DAILY March 13, 2025 12:00am Multiple Vitamins oral capsule (1 source) Start: 06-11-2024 take 1 capsule by mouth once daily Multiple Vitamins oral capsule Dose = 1 cap(s), Oral, Daily, 0 Refill(s) Start Date: 06/11/24 Status: Ordered Salina (Nk) (2 sources) Start: 07-20-2022 [place] (Nk) A ctive July 20, 2022 12:00am Start: 07-20-2022 [place] (Nk) A ctive July 19, 2022 11:00pm Completed/Discontinued Medications Medication Drug Class(es) Dates Sig (Normalized) Sig (Original) amoxicillin 875 mg / clavulanate 125 mg oral tablet (20 sources) Penicillin-class Antibacterial Start: 07-13-2023 amoxicillin-pot clavulanate 875-125 mg oral tablet 1 (one) Tablet bid for 10 days for 10 days Quantity: 20 {Tablet} Refills: 0 Ordered: 13-Jul-2023 Deonna Calhoun DO Unique Deonna MILLER Start : 13-Jul-2023 Active Comments: Please fill leticia as patient will be picking up on her way back to [place] this afternoon. Thank you! Start: 01-18-2021 End: 01-21-2021 Amoxicillin-Pot Clavulanate 875-125 MG Oral Tablet 1 (one) Tablet bid for 10 days for 10 days Quantity: 20 {Tablet} Refills: 0 Ordered: 21-Jan-2021 KASSY Augustin LPN Start : 18-Jan-2021 End : 21-Jan-2021 Inactive Comment on above: Please fill leticia as patient will be picking up on her way back to [place] this afternoon. Thank you! azithromycin 250 mg oral tablet (15 sources) Macrolide Antimicrobial Start: 07-01-20 End: 11-30-19 22 Zithromax Z-Aaron 250 MG Oral Tablet 1 (one) Tablet tad for 0 days Quantity: 1 {Packet} Refills: 0 Ordered: 29-Nov-2021 Gravius FRAME FIXER Yanni Start : 01-Jul-2021 End : 29-Nov-2021 Inactive augmented betamethasone 0.0005 mg/mg topical ointment (15 sources) Corticosteroid Start: 05-14-20 Diprolene (augmented) 0.05 % topical ointment 1 (one) Application apply to affected area for 0 days Quantity: 50 {Gram} Refills: 0 Ordered: 14-May-2021 KASSY Augustin LPN Start : 14-May-2021 Active cefdinir 300 mg oral capsule (15 sources) Cephalosporin Antibacterial Start: 09-13-20 End: 01-10-20 22 take 1 capsule by mouth twice daily Cefdinir 300 MG Oral Capsule 1 (one) Capsule bid for 14 days Quantity: 28 {Capsule} Refills: 0 Ordered: 13-Sep-2021 Ute MOHAMUD Isabel Start : 13-Sep-2021 End : 27-Sep-2021 Inactive cephalexin 500 mg oral capsule (5 sources) Cephalosporin Antibacterial Start: 03-27-20 End: 04-03-20 25 take 1 capsule by mouth twice daily Cephalexin 500 mg capsule Discontinued 500 mg PO TWICE A DAY March 27, 2025 12:00am April 03, 2025 2:24pm ciprofloxacin 3 mg/ml ophthalmic solution (13 sources) Quinolone Antimicrobial Start: 02-10-20 ciprofloxacin HCl 0.3 % ophthalmic (eye) drops 1 (one) Metric Drop 1`-2 drops in each eye q 2 hrs while awake for 2 days then 1-2 drops q4hrs for 5 days for 0 days Quantity: 1 {Each} Refills: 0 Ordered: 09-Feb-2022 KASSY Augustin LPN Start : 09-Feb-2022 Active Comments: qty is 1 bottle Comment on above: qty is 1 bottle clindamycin 300 mg oral capsule (4 sources) Lincosamide Antibacterial Start: 04-03-20 End: 04-10-20 take 1 capsule by mouth three times daily Clindamycin Hcl (Cleocin Hcl) 300 mg capsule Discontinued 300 mg PO THREE TIMES A DAY 21 7 0 April 03, 2025 12:00am April 09, 2025 12:00am April 10, 2025 12:09am Desog-E.Estradiol/E.E stradiol (18 sources) Progestin, Estrogen Start: 10-25-19 19 End: 02-27-20 19 take 0.15 tablet by mouth once daily Desog-E.Estradiol/E. Estradiol (Kariva (28)) 0.15-0.02 mgx21 /0.01 mg x 5 tablet Discontinued 1 {tbl} PO daily 84 4 October 25, 2018 10:29am February 26, 2019 9:24am Start: 10-25-2018 End: 02-26-2019 take 0.15 tablet by mouth once daily Desog-E.Estradiol/E.Estradiol (Kariva (2 8)) 0.15-0.02 mgx21 /0.01 mg x 5 tablet Discontinued 1 {tbl} PO daily October 25, 2018 10:29am February 26, 2019 9:24am Start: 10-25-2018 End: 02-26-2019 take 0.15 tablet by mouth once daily Desog-E.Estradiol/E.Estradiol (Kariva (2 8)) 0.15-0.02 mgx21 /0.01 mg x 5 tablet Discontinued 1 TABLET PO daily October 25, 2018 9:29am February 26, 2019 8:24am Start: 10-25-2018 End: 02-26-2019 take 0.15 tablet by mouth once daily Desog-E.Estradiol/E.Estradiol (Kariva (2 8)) 0.15-0.02 mgx21 /0.01 mg x 5 tablet Discontinued 1 TABLET PO daily October 25, 2018 10:29am February 26, 2019 9:24am Start: 10-23-2018 End: 10-25-2018 take 0.15 tablet by mouth once daily Desog-E.Estradiol/E.Estradiol (Kariva (2 8)) 0.15-0.02 mgx21 /0.01 mg x 5 tablet Discontinued 1 {tbl} PO daily 84 October 23, 2018 1:00am October 25, 2018 10:29am Start: 10-23-2018 End: 10-25-2018 take 0.15 tablet by mouth once daily Desog-E.Estradiol/E.Estradiol (Kariva (2 8)) 0.15-0.02 mgx21 /0.01 mg x 5 tablet Discontinued 1 {tbl} PO daily October 23, 2018 1:00am October 25, 2018 10:29am Start: 10-23-2018 End: 10-25-2018 take 0.15 tablet by mouth once daily Desog-E.Estradiol/E.Estradiol (Kariva (2 8)) 0.15-0.02 mgx21 /0.01 mg x 5 tablet Discontinued 1 TABLET PO daily October 23, 2018 12:00am October 25, 2018 9:29am Start: 10-23-2018 End: 10-25-2018 take 0.15 tablet by mouth once daily Desog-E.Estradiol/E.Estradiol (Kariva (2 8)) 0.15-0.02 mgx21 /0.01 mg x 5 tablet Discontinued 1 TABLET PO daily 84 October 23, 2018 1:00am October 25, 2018 10:29am dexamethasone 6 mg oral tablet (15 sources) Corticosteroid Start: 05-14-2021 End: 11-29-2021 take 1 tablet by mouth once daily Dexamethasone 6 MG Oral Tablet 1 (one) Tablet 1 tab po qd for 30 days Quantity: 30 {Tablet} Refills: 3 Ordered: 29-Nov-2021 Luz Maria FRAME FIXERYanni Start : 14-May-2021 End : 29-Nov-2021 Inactive Drospirenone-Ethiny l Estradiol (20 sources) Progestin, Estrogen Start: 02-26-2019 End: 05-11-2021 take 3 tablets by mouth once daily Drospirenone-Ethin yl Estradiol (Ocella) 3-0.03 mg tablet Discontinued 1 {tbl} PO DAILY 84 4 February 26, 2019 12:00am May 11, 2021 8:21am Start: 02-26-2019 End: 05-11-2021 take 3 tablets by mouth once daily Drospirenone-Ethinyl Estradiol (Ocella) 3-0.03 mg tablet Discontinued 1 {tbl} PO DAILY 84 February 26, 2019 12:00am May 11, 2021 8:21am Start: 02-26-2019 End: 05-11-2021 Drospirenone-Ethinyl Estradi ol (Ocella) 3-0.03 mg tablet Discontinued 1 TABLET PO DAILY 84 February 25, 2019 11:00pm May 11, 2021 7:21am Start: 02-26-2019 End: 05-11-2021 Drospirenone-Ethinyl Estradi ol (Ocella) 3-0.03 mg tablet Discontinued 1 TABLET PO DAILY 84 February 26, 2019 12:00am May 11, 2021 8:21am Start: 12-03-2018 take 1 tablet by kavon th once daily Ocella 3-0.03 MG Oral Tablet 1 (one) Tablet qd for 0 days Quantity: 1 {Package} Refills: 3 Ordered: 05-Aug-2020 Deonna Calhoun DO, DO, Kathleen Start : 03-Dec-2018 Active Start: 12-03-2018 take 1 tablet by kavon th once daily Ocella 3-0.03 MG Oral Tablet 1 (one) Tablet qd for 0 days Quantity: 1 {Package} Refills: 3 Ordered: 03-Dec-2018 Unique MILLER Deonna Calhoun DO Deonna Start : 03-Dec-2018 Active ivermectin 3 mg oral tablet (15 sources) Antiparasitic, Pediculicide Start: 05-14-2021 End: 11-29-2021 take 4 tablets by mouth every week Ivermectin 3 MG Oral Tablet 4 Tablet tabs once a week for 0 days Quantity: 16 {Tablet} Refills: 6 Ordered: 29-Nov-2021 Gravius FRAME FIXER, Yanni Start : 14-May-2021 End : 29-Nov-2021 Inactive 1 ml ketorolac tromethamine 30 mg/ml injection (10 sources) Nonsteroidal Anti-inflammatory Drug, Cyclooxygenase Inhibitor Start: 08-27-2022 ketorolac 30 mg/mL (1 mL) injection solution 1 (one) mL x1 for 0 days Quantity: 1 {Milliliter} Refills: 0 Ordered: 13-Jul-2023 KASSY Augustin LPN Start : 27-Aug-2022 Active Comments: IV in office lot # [id number] 07/2023 Comment on above: IV in office lot # [id number] 07/2023 levonorgestrel 0.157512 mg/hr intrauterine system (9 sources) Progestin, Progestin-containin g Intrauterine Device Start: 07-12-2021 End: 12-14-2021 Levonorgestrel (Poornima) 14 mcg/24 hrs (3 yrs) 13.5 mg intrauterine device Discontinued 1 NMA INTRA-UTER ONCE July 12, 2021 12:00am December 14, 2021 3:05pm as a single dose Start: 07-12-2021 End: 12-14-2021 Levonorgestrel (Poornima) 14 mc g/24 hrs (3 yrs) 13.5 mg intrauterine device Discontinued 1 DEVICE INTRA-UTER ONCE July 11, 2021 11:00pm December 14, 2021 2:05pm as a single dose methylPREDNISolone 4 mg oral tablet (20 sources) Corticosteroid Start: 07-13-2020 End: 01-21-2021 take 6 tablets by mouth once Medrol 4 MG Oral Tablet Therapy Pack use as directed per instructions in pack for 0 days Quantity: 1 {Package} Refills: 0 Ordered: 21-Jan-2021 Charli MOHAMUD KASSY Start : 13-Jul-2020 End : 21-Jan-2021 Inactive Start: 07-13-2020 Medrol 4 MG Or al Tablet Therapy Pack use as directed per instructions in pack for 0 days Quantity: 1 {Package} Refills: 0 Ordered: 13-Jul-2020 Yanni Loera CMA Start : 13-Jul-2020 Active oxyCODONE hydrochloride 5 mg oral tablet (6 sources) Opioid Agonist Start: 03-26-2025 End: 04-03-2025 take 1 tablet by mouth every twelve hours as needed for pain Oxycodone 5 mg tablet Discontinued 5 mg PO Q12H as needed for pain 10 5 0 March 26, 2025 April 03, 2025 2:24pm Epidermoid cyst of vulva Vulvar cyst sulfamethoxazole 800 mg / trimethoprim 160 mg oral tablet (20 sources) Dihydrofolate Reductase Inhibitor Antibacterial, Sulfonamide Antimicrobial Start: 08-03-2020 End: 08-08-2020 take 1 tablet by mouth twice daily Bactrim DS 800-160 MG Oral Tablet 1 (one) Tablet bid for 5 days Quantity: 10 {Tablet} Refills: 0 Ordered: 03-Aug-2020 Yanni Loera CMA Start : 03-Aug-2020 End : 08-Aug-2020 Inactive tiZANidine 4 mg oral capsule (20 sources) Central alpha-2 Adrenergic Agonist Start: 07-13-2020 End: 07-28-2020 take 1 capsule by mouth twice daily tiZANidine HCl 4 MG Oral Capsule 1 (one) Capsule 1 tablet BID for 15 days Quantity: 30 {Capsule} Refills: 0 Ordered: 03-Aug-2020 Rani Geronimo Start : 13-Jul-2020 End : 28-Jul-2020 Inactive Comments: M62.838called into tom lawrence Comment on above: M62.838called into tom terry Problems Active Problems Problem Classification Problem Date Documented Date Episodic/Chronic Abdominal pain (14 sources) Pain in female pelvis; Translations: [Pelvic pain in female] 04-13-2023 Episodic Bacterial infection; unspecified site (9 sources) Chlamydial infection; Translations: [Chlamydial infection, unspecified] 07-20-2022 Episodic Contraceptive and procreative management (1 source) Encounter for removal of intrauterine contraceptive device; Translations: [Encounter for removal of intrauterine contraceptive device] Episodic Deficiency and other anemia (18 sources) Iron deficiency anemia; Translations: [Iron deficiency anemia] 11-18-2022 Episodic E Codes: Fall (20 sources) Accidental fall ; Translations: [Fall, accidental] Resolved: 01-21-2021 08-05-2020 Episodic Fever of unknown origin (20 sources) Fever; Translations: [Fever] Resolved: 01-21-2021 09-08-2015 Episodic Fluid and electrolyte disorders (20 sources) Dehydration; Translations: [Dehydration] 08-27-2022 Episodic Genitourinary symptoms and ill-defined conditions (20 sources) Blood in urine; Translations: [Increased frequency of urination] Resolved: 01-21-2021 09-08-2015 Episodic Headache; including migraine (4 sources) Headache; Translations: [Headache] 07-13-2023 Episodic Immunizations and screening for infectious disease (20 sources) Contact with and (suspected) exposure to other viral communicable diseases; Translations: [Exposure to SARS virus] Onset: 04-08-2024 Resolved: 01-21-2021 02-19-2020 Episodic Influenza (20 sources) Influenza; Translations: [Flu] 08-27-2022 Episodic Malaise and fatigue (20 sources) Fatigue; Translations: [Fatigue] 11-20-2017 Episodic Menstrual disorders (9 sources) Dysmenorrhea; Translations: [Dysmenorrhea, unspecified] 05-11-2021 Chronic Nausea and vomiting (20 sources) Nausea and vomiting; Translations: [Nausea and/or vomiting] 08-27-2022 Episodic Nutritional deficiencies (20 sources) Vitamin D deficiency; Translations: [Vitamin D deficiency] 08-23-2018 Chronic Other connective tissue disease (20 sources) Pain in finger; Translations: [Finger pain] Resolved: 01-21-2021 12-03-2018 Episodic Other connective tissue disease (20 sources) Spasm; Translations: [Muscle spasm] Resolved: 08-27-2022 07-13-2020 Episodic Other connective tissue disease (20 sources) Hand pain; Translations: [Hand pain] Resolved: 01-21-2021 08-05-2020 Episodic Other female genital disorders (2 sources) Premenstrual tension syndrome; Translations: [Premenstrual tension syndrome] Onset: 04-08-2024 Chronic Other female genital disorders (20 sources) H/O gynecological disorder; Translations: [History of heavy vaginal bleeding] 08-23-2018 Episodic Other female genital disorders (2 sources) Other specified noninflammatory disorders of vulva and perineum; Translations: [Other specified noninflammatory disorders of vulva and perineum] Onset: 07-16-2024 Episodic Other female genital disorders (20 sources) Cyst of vulva; Translations: [Vulvar cyst] 03-10-2025 Episodic Comment on above: Right labia majora Other female genital disorders (2 sources) Vulvar cyst; Translations: [Vulvar cyst] Onset: 05-06-2025 Episodic Other injuries and conditions due to external causes (10 sources) Injury of head; Translations: [Head injuries] 06-05-2023 Episodic Other nervous system disorders (20 sources) Disturbance of attention; Translations: [Attention deficit] 02-12-2021 Chronic Comment on above: she is hard think ma y have ADHD but has alot things along with it Other nutritional; endocrine; and metabolic disorders (10 sources) Body mass index 25-29 - overweight; Translations: [BMI 26.0-26.9,adult] 02-12-2021 Episodic Other nutritional; endocrine; and metabolic disorders (20 sources) Overweight in adulthood with body mass index of 25 or more but less than 30; Translations: [BMI 26.0-26.9,adult] 04-21-2021 Episodic Other screening for suspected conditions (not mental disorders or infectious disease) (20 sources) Patient encounter status; Translations: [Screening for hyperlipidemia] 08-05-2020 Episodic Comment on above: No PA needed for IUD . Ref.#[id number] Other skin disorders (11 sources) Hyperhidrosis; Translations: [Hyperhidrosis] 06-28-2023 Episodic Other upper respiratory disease (20 sources) Pain in throat Episodic Other upper respiratory infections (4 sources) Bacterial sinusitis; Translations: [Sinusitis, bacterial] 07-13-2023 Chronic Other upper respiratory infections (20 sources) Sore throat symptom; Translations: [Sore throat] Resolved: 01-21-2021 12-05-2017 Episodic Residual codes; unclassified (20 sources) Family history of hyperlipidemia; Translations: [Family history of hyperlipidemia] 08-05-2020 Episodic Residual codes; unclassified (20 sources) Non-smoker; Translations: [Non-smoker] 02-12-2021 Episodic Residual codes; unclassified (20 sources) Generalized aches and pains; Translations: [Body aches] 08-27-2022 Episodic Residual codes; unclassified (20 sources) Chill; Translations: [Chills] 08-27-2022 Episodic Unclassified (20 sources) Unclassified (10 sources) BMI 26.0-26.9,adult Unclassified (7 sources) Non-smoker Unclassified (13 sources) Attention deficit Past or Other Problems Problem Classification Problem Date Documented Date Episodic/Chronic Coronary atherosclerosis and other heart disease (20 sources) Coronary atherosclerosis and other heart disease External cause codes: Fall (2 sources) Accidental fall ; Translations: [Fall, accidental] 08-05-2020 Unclassified (18 sources) History of heavy vaginal bleeding Unclassified (18 sources) Finger pain (729.5) Unclassified (18 sources) Finger pain Unclassified (7 sources) Patient encounter status; Translations: [Screening for hyperlipidemia] 07-30-2019 Unclassified (20 sources) Exposure to SARS virus Unclassified (15 sources) Urine frequency Unclassified (6 sources) Family history of other disorder of lipoprotein metabolism and other lipidemia; Translations: [Family history of hyperlipidemia] 06-26-2020 Unclassified (20 sources) Unspecified Diagnosis Resolved: 01-21-2021 07-13-2020 Unclassified (13 sources) Muscle spasm Unclassified (11 sources) Fall, accidental Unclassified (6 sources) Exposure to COVID-19 virus Results Test Name Value Interpretation Reference Range Facility Plastic Surgery Visit Report on 05-30-2025 Plastic Surgery Visit Report [facility] Plastic Reconstructive Surgery [address], [address] [place], [place] [id number] OFFICE VISIT Date of Service: 05/30/25 MR#: [id number] Acct: [id number] Name: SIRENA CALHOUN Rep #: [id number] : 2005 Provider: Dr. Shabana Llamas MD Age/Sex: 19/F Location: [facility] Status: Signed Pt seen evaluated w/BHARGAV. I personally interviewed exam the pt. I was involved in all aspects of pt's orders, interpretation of results treatment Intake Vital Signs 04/03/25 14:25 05/30/25 08:04 Height 5 ft 4 in 5 ft 4 in BP 107/72 Blood Pressure Location Lt brachial Position Sitting Respiration 16 Pulse 76 Temp 98.4 F Temp Source Temporal Pulse Oximetry (%) 96 Oxygen Delivery Method room air Intake Visit Reasons: FOLLOW UP Chief Complaint: follow up Is patient in pain?: No Allergies No Known Allergies Allergy (Verified 05/30/25 08:05) Medications ???Medication ???Instructions ???Recorded ???Confirmed ???Type ADRENAL SUPPORT 2 cap PO BID 03/13/25 04/11/25 His tory dextroamphetamine-amphetamin e 5 mg 1 tab PO BID 03/13/25 04/11/25 H istory tablet mecobalamin (vitamin B12) 1,000 1,000 mcg PO DAILY 03/13/25 History mcg chewable tablet doxycycline hyclate 50 mg capsule 50 mg PO QDAY 05/30/25 05/30/25 H istory Nurse's Note: pt here for follow up, recently diagnosed with hidradenitis, had a flair up and now on doxycycline. No issues, no pain Subjective Details: Sirena Calhoun is a 19-year-old female who is 2 months out from right labial cyst excisionX2 with Dr. Llamas on 03/26/25. She followed up with her dermatologists and was diagnosed with hydra adenitis suppurativa and placed on oral Doxycycline. She notes new cyst on the left labia now that's slightly tender to touch. She was asked by her roll forger to wait for the left cyst to improve prior to undergoing laser hair removal. Pre-Operative Diagnosis: Right labia majora cysts x 2 General: Denies fever, chills HEENT: Denies headaches, vision changes, sore throat Cardio: Denies chest pain, leg edema Pulmonary: Denies shortness of pain, cough, wheezing GI: Denies nausea, vomiting, diarrhea Objective Details: Patient examined with Dr. Llamas Right labia: Medial cyst incision is well healed, nontender to touch, no recurrent cyst. Lateral cyst incision is well healed, nontender to touch, no recurrent cyst Coding Level of Care Code Global Post Op Diagnoses Inclusion cyst of vulva N90.7 PFSH Medical History (Updated 05/30/25 @ 10:41 by DRE Mccallum) Hidradenitis suppurativa Wears contact lenses Wears glasses Marijuana use Low iron Non-smoker Contraceptive management Surgical History Hx of oral surgery Hx of wisdom tooth extraction Family History Other Alcoholism Social History Smoking Status: Never smoker alcohol intake: never substance use type: marijuana caffeine: Yes what type of physical activity do you participate in: walking seatbelt use: always additional social history: Student at [employer], [employer] [place] pt denies vaping, denies edibles. pt denies using aspirin and ibuprofen as needed pt denies blood clots Assessment and Plan (No Qualifiers) Assessment and Plan (1) Inclusion cyst of vulva: Status: Acute Comment: Right labia majora-resolved, now with new left labia majora cyst Plan: She was advised to continue follow up with her roll forger for HS management. Encouraged laser hair removal. Shoulder the cyst need exicision we're happy to see her again. No follow up scheduled at this time. Call us with any concerns. 05/30/25 1140 Date Shabana Llamas MD 05/30/25 1042 Cosigner Signature: Date (if applicable) Kosta Swain CC: Normal [facility] Plastic Surgery Visit Report on 05-09-2025 Plastic Surgery Visit Report [facility] Plastic Reconstructive Surgery [address], [address] [place] [address] OFFICE VISIT Date of Service: 05/09/25 MR#: [id number] Acct: [id number] Name: SIRENA CALHOUN Rep #: [id number] : 2005 Provider: Dr. Shabana Llamas MD Age/Sex: 19/F Location: [facility] Status: Signed Intake Vital Signs 04/03/25 14:25 05/09/25 11:24 Height 5 ft 4 in BP 105/71 121/81 H Blood Pressure Location Lt brachial Lt brachial Position Sitting Sitting Respiration 16 18 Pulse 76 76 Pulse Source Monitor Monitor Temp 98.1 F 98.7 F Temp Source Temporal Oral Pulse Oximetry (%) 99 98 Oxygen Delivery Method room air room air Intake Visit Reasons: 4 W FU Chief Complaint: post op Allergies No Known Allergies Allergy (Verified 04/11/25 09:54) Subjective Details: Doing well overall Had a small pinpoint amount of drainage from the largest cyst removal scar a couple of days ago and was placed on antibiotics by her mother. Since then there has been no issue. 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 Minimal tenderness to palpation. I could not express any fluid today. Appears to have a thick scar underneath the epithelium but no recurrence of the cyst at this point. Lateral cyst incision: Clean dry and intact and healed well Coding Level of Care Code Global Post Op Diagnoses Inclusion cyst of vulva N90.7 [facility] Medical History Wears contact lenses Wears glasses Marijuana use Low iron Non-smoker Contraceptive management Surgical History Hx of oral surgery Hx of wisdom tooth extraction Family History Other Alcoholism Social History Smoking Status: Never smoker alcohol intake: never substance use type: marijuana caffeine: Yes what type of physical activity do you participate in: walking seatbelt use: always additional social history: Student at [employer], [employer] pt denies vaping, denies edibles. pt denies using aspirin and ibuprofen as needed pt denies blood clots Assessment and Plan (No Qualifiers) Assessment and Plan (1) Inclusion cyst of vulva: Status: Acute Comment: Right labia majora Plan: Likely suture abscess which may have caused the drainage the other day No signs of cyst recurrence at this point I will monitor closely. Follow-up with me in 3 weeks 05/09/25 0487 Date Shabana Llamas MD Cosigner Signature: Date (if applicable) CC: Normal [facility] Plastic Surgery Visit Report on 04-11-2025 Plastic Surgery Visit Report [facility] Plastic Reconstructive Surgery [address], [address] [place] [address] OFFICE VISIT Date of Service: 04/11/25 MR#: [id number] Acct: [id number] Name: SIRENA CALHOUN Rep #: [id number] 23 : 2005 Provider: Dr. Shabana Llamas MD Age/Sex: 19/F Location: [facility] Status: Signed Intake Vital Signs 04/03/25 14:25 04/11/25 09:54 Height 5 ft 4 in BP 105/71 102/71 Blood Pressure Location Lt brachial Rt brachial Position Sitting Sitting Respiration 16 18 Pulse 76 67 Pulse Source Monitor Monitor Temp 98.1 F Temp Source Temporal Pulse Oximetry (%) 99 98 Oxygen Delivery Method room air room air Intake Visit Reasons: 1 W FU Chief Complaint: post op Is patient in pain?: No Allergies No Known Allergies Allergy (Verified 04/11/25 09:54) Medications ???Medication ???Instructions ???Recorded ???Confirmed ???Type ADRENAL SUPPORT 2 cap PO BID 03/13/25 04/11/25 His tory dextroamphetamine-amphetamin e 5 mg 1 tab PO BID 03/13/25 04/11/25 H istory tablet mecobalamin (vitamin B12) 1,000 1,000 mcg PO DAILY 03/13/25 History mcg chewable tablet Subjective Details: Operative Information Date of Procedure: 03/26/25 Pre-Operative Diagnosis: Right labia majora cysts x 2 Post-Operative Diagnosis: Same Surgery/Procedure Performed: 1) Excision right medial labia majora cyst, 1.5 x 0.75 cm (CPT: 64210) 2) Excision right lateral labia majora cyst, 0.5 x 0.5 cm (CPT: 15867) 3) Intermediate closure right labia majora wounds, 4 cm (CPT: 45774) PATHOLOGY: MICROSCOPIC DIAGNOSIS A. Labia, right, lateral, "cyst of vulva", removal: Cystically dilated squamous lined invagination with inflammation. B. Labia, right, medial, "cyst of vulva", removal: Squamous epithelium and fibrous soft tissue with scarring, chronic inflammation and chronic reactive changes suggestive of cyst rupture Current encounter, 11 April 2025: Patient here for follow-up. Pain controlled overall. Objective Details: Medial cyst incision: Clean dry and intact with no drainage, appears to be reepithelialized. Lateral cyst incision: Intact overall with hair follicle immediately adjacent to the incision that appears to be inflamed with folliculitis Coding Level of Care Code Off vis,est,level 2 Diagnoses Inclusion cyst of vulva N90.7 [facility] Medical History Wears contact lenses Wears glasses Marijuana use Low iron Non-smoker Contraceptive management Surgical History Hx of oral surgery Hx of wisdom tooth extraction Family History Other Alcoholism Social History Smoking Status: Never smoker alcohol intake: never substance use type: marijuana caffeine: Yes what type of physical activity do you participate in: walking seatbelt use: always additional social history: Student at [employer], [email or web address] pt denies vaping, denies edibles. pt denies using aspirin and ibuprofen as needed pt denies blood clots Assessment and Plan (No Qualifiers) Assessment and Plan (1) Inclusion cyst of vulva: Status: Acute Comment: Right labia majora Plan: Completed antibiotics No signs of infection on the larger right medial cyst where cultures were taken. Appears to have healed nicely with reepithelialized, albeit macerated and fresh skin. Should improve over the next couple weeks. Has some thick scar at the base developing and discussed scar massage and other modalities for treatment of the scar, but cyst appears to be gone. Right lateral cyst with some inflamed hair follicle. Discussed warm compresses and gentle expression. Patient will pursue laser hair removal next month, the timing which I think is very appropriate. I will follow-up with her in a couple of weeks to check on things. Patient happy with the plan 04/11/251858 Date Shabana Llamas MD [facility] Signature: Date (if applicable) CC: Normal [facility] Culture, [facility] CUAN collected in OR; rig ht medial labial cyst tissue Studies have confirmed that Anaerobic Gram Positive Cocci are routinely SUSCEPTABLE to Penicillin and generally susceptible to Beta-lactams and Beta-lactamase inhibitors, Cephalosporins, Carbapenems and Metronidazole. They are showing increased RESISTANCE to Clindamycin Anaerobic cocci Normal [facility] Comment on above: Performed By: #### M 100.4001, M100.3000, M100.2000 #### [facility] Laboratory [address] [place], [address] Plastic Surgery Visit Report on 04-03-2025 Plastic Surgery Visit Report [facility] Plastic Re[facility]ive Surgery [address], [address] [place] [address] OFFICE VISIT Date of Service: 04/03/25 MR#: [id number] Acct: [id number] Name: SIRENA CALHOUN Rep #: [id number] : 2005 Provider: Dr. Shabana Llamas MD Age/Sex: 19/F Location: [facility] Status: Signed Intake Vital Signs 03/27/25 13:53 04/03/25 14:25 Height 5 ft 4 in 5 ft 4 in BP 112/75 105/71 Blood Pressure Location Lt brachial Lt brachial Position Sitting Sitting Respiration 18 16 Pulse 82 76 Pulse Source Monitor Temp 98.6 F 98.1 F Temp Source Temporal Temporal Pulse Oximetry (%) 97 99 Oxygen Delivery Method room air room air Intake Visit Reasons: POST OP Chief Complaint: post op Uke Operator Required: No Accompanied by: Self Is patient in pain?: No Allergies No Known Allergies Allergy (Verified 04/03/25 14:24) Medications ???Medication ???Instructions ???Recorded ???Confirmed ???Type ADRENAL SUPPORT 2 cap PO BID 03/13/25 04/03/25 His tory dextroamphetamine-amphetamin e 5 mg 1 tab PO BID 03/13/25 04/03/25 H istory tablet mecobalamin (vitamin B12) 1,000 1,000 mcg PO DAILY 03/13/25 History mcg chewable tablet clindamycin HCl 300 mg capsule 300 mg PO TID 7 days #21 caps 03/1804/03/25 Rx (Cleocin HCl) PFSH Medical History Wears contact lenses Wears glasses Marijuana use Low iron Non-smoker Contraceptive management Surgical History Hx of oral surgery Hx of wisdom tooth extraction Family History Other Alcoholism Social History Smoking Status: Never smoker alcohol intake: never substance use type: marijuana caffeine: Yes what type of physical activity do you participate in: walking seatbelt use: always additional social history: Student at [employer], [employer] pt denies vaping, denies edibles. pt denies using aspirin and ibuprofen as needed pt denies blood clots HPI POST OP Details: The patient is a 19-year-old female presenting with concerns regarding the healing of a surgical site. The surgical site was initially treated with Keflex and later transitioned to doxycycline due to a polymicrobial infection identified through cultures. The infection was susceptible to most antibiotics except one, and the patient completed the antibiotic course. Post-surgery, the patient experienced swelling and tenderness at the incision site, which is considered normal at this stage of healing. The patient reports that the swelling has reduced, but there is still some tenderness and minimal drainage observed. The patient has not returned to work due to the physical demands and environmental conditions, such as lack of air conditioning, which could exacerbate her condition. ros: - Skin: Reports tenderness and minimal drainage at the surgical site Attestation: Documentation on this patient encounter was supported using ambient scribe technology/ voice AI technology. The patient consented to recording for the purpose of documenting the encounter. Provider reviewed content of the generated note prior to signature. ROS Details - Genitourinary: Reports drainage from the cyst when infected - Hematologic: Denies history of bleeding or clotting disorders - General: Denies smoking and reports taking vitamins only General General: Yes good health; No fatigue, fever(s) or weight loss HENMT HENMT: No rhinitis, sore throat/mouth sore, nasal congestion, contacts or glaucoma Endo Endocrine: No thyroid disease, polydipsia, heat intolerance, cold intolerance, hepatitis or excessive urine Skin Skin: No Bleeding, bruising, changing moles or suspicious lesion Musc Musculoskeletal: No joint pain, joint stiffness, muscle weakness, back pain, osteoarthritis or Muscle aches/ myalgia Neuro Neurological: No headache(s), No lightheadedness and No numbness Cardio Cardiovascular: No chest pain, pacemaker, fatigue or shortness of breat with exertion Psych Psychiatric: No depression, claustrophobia or anxiety Resp Respiratory: No spitting up, shortness of breath, sleep apnea, asthma, emphysema, TB, Cough or Smoker Gastro Gastrointestinal: No diarrhea, constipation, blood in stool, nausea, vomiting or abdominal bloating Jaxson Hematologic: No anemia, No bleeding and No abnormal bleeding Genitourinary: No urinary frequency, blood in urine or incontinence Exam Details 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 Normal [facility] Culture, Anaerobic Any [facility] alexandre 04-02-2025 CUAN collected in OR; rig medial labial cyst swab #1Prevotella and Porphyromonas species are generally SUSCEPTIBLE to Cefoxitin, Chloramphenicol, and Metronidazole and are usually RESISTANT to Penicillin. Bacteria Spec Anaerobe Cult #2 Studies have confirmed that Anaerobic Gram Positive Cocci are routinely SUSCEPTABLE to Penicillin and generally susceptible to Beta-lactams and Beta-lactamase inhibitors, Cephalosporins, Carbapenems and Metronidazole. They are showing increased RESISTANCE to Clindamycin Prevotella bivia Beta Lactamase-Reportable Positive Anaerobic cocci [facility] Comment on above: Performed By: #### M 100.2000, M100.4001, M100.3000 #### [facility] Laboratory [address] [place], [place], [id number] Wound Cultureon 03-30-2025 WC collected in OR; rig ht medial labial cyst swab Wound Culture Wound Culture Wound Culture Strep anginosus Amount Growth Rare Strep anginosus: REACTION Ampicillin Islt FABIANO <=0.25 Penicillin G Islt FABIANO <=0.06 S Cefotaxime Islt FABIANO <=0.12 S cefTRIAXone Islt FABIANO <=0.12 S Clindamycin Islt FABIANO <=0.25 S Erythromycin Islt FABIANO 2 R Linezolid Islt FABIANO <=2 S Vancomycin Islt FABIANO 0.5 S [facility] Comment on above: Performed By: #### M 100.2000, M100.4001, M100.3000 #### [facility] Laboratory [address] [place], [place], [id number] Wound Cultureon 03-29-2025 WC collected in OR; rig ht medial labial cyst tissue Wound Culture Wound Culture Strep anginosus Amount Growth Rare Strep anginosus: REACTION Ampicillin Islt FABIANO <=0.25 Penicillin G Islt FABIANO <=0.06 S Cefotaxime Islt FABIANO <=0.12 S cefTRIAXone Islt FABIANO <=0.12 S Clindamycin Islt FABIANO <=0.25 S Erythromycin Islt FABIANO 1 R Linezolid Islt FABIANO <=2 S Vancomycin Islt FABIANO 0.5 S [facility] Comment on above: Performed By: #### M 100.4001, M100.3000, M100.1999 #### [facility] [address] [place], [address] Gram Stainon 03-27-2025 GS collected in OR; rig ht medial labial cyst tissue Gram Stain No organisms seen No Epithelial cells Normal [facility] Comment on above: Performed By: #### M 100.4001, M100.3000, M100.1999 #### [facility] Laboratory [address] [place], [address] GS collected in OR; rig ht medial labial cyst swab Gram Stain No organisms seen No Epithelial cells Normal [facility] Comment on above: Performed By: #### M 100.2000, M100.4001, M100.3000 #### [facility] Laboratory [address] [place], [address] Operative Reporton Operative Report [facility] Medical Records Department [address] [place] [address] Operative Report 03/27/25 1529 MR#: [id number] Acct: [id number] Name: SIRENA CALHOUN Rep #: [id number] : 2005 19 From: Shabana Llamas MD PCP: Dr. Nancy Barahona MD Status:[facility] Location: [facility] Operative Report (Standard) Operative Information Date of Procedure: 03/26/25 Pre-Operative Diagnosis: Right labia majora cysts x 2 Post-Operative Diagnosis: Same Surgery/Procedure Performed: 1) Excision right medial labia majora cyst, 1.5 x 0.75 cm (CPT: 89211) 2) Excision right lateral labia majora cyst, 0.5 x 0.5 cm (CPT: 24919) 3) Intermediate closure right labia majora wounds, 4 cm (CPT: 03177) scarifier operator: Yes Commodities Requirements Analyst: Tracy Mckeon Tasks completed by first officer and flight instructor: Retracting Type of Anesthesia: General/Supplemental (7 cc of 0.25% Marcaine with 1:200,000 epinephrine ) RN Documented Start/Stop Times: Operation Date: 03/26/25 14:30 Case Time Into Pre-Op 03/26/25 13:10 Anesthesia Start 03/26/25 14:59 Into Room 03/26/25 14:59 Procedure Start 03/26/25 15:25 Procedure End 03/26/25 16:04 Anesthesia End 03/26/25 16:10 Out of Room 03/26/25 16:10 Into Recovery 03/26/25 16:12 Out of Recovery 03/26/25 16:32 Into Phase II Recovery 03/26/25 16:33 Out of Phase II 03/26/25 17:20 Procedure Start Time: 15:25 Procedure Stop Time: 16:04 Select all DRAINS/GRAFTS/IMPLANTS that apply: None Estimated Blood Loss: 5 cc Specimen collected: Yes Description of specimen(s) removed: Right medial labia majora cyst, right lateral labia major cyst Also culture swab Description of surgery: Indications: Sirena Calhoun is a delightful 19-year-old female who has right labial cysts. Presents today for excision and understands risks, benefits, and alternatives to excision. Procedure details: Patient was correctly identified in preoperative holding and the cyst were marked. She was in agreement with the site markings and the operative plan. She was taken back to the operating room where she was administered general anesthesia and positioned carefully in a lithotomy position with care taken to pad all bony prominences. She was prepped and draped in sterile fashion and a proper timeout was performed. Local anesthesia was injected and given time to take effect. A 15 blade scalpel was used to make a direct elliptical excision longitudinally over the right medial labia majora cyst. Careful dissec tion around the cyst wall/scar around the cyst was then carried out with tenotomy scissors around the cyst wall with care taken to protect underlying and adjacent structures. The cyst was removed in 1 piece and sent for pathology. It measured 1.5 x 0.75 cm. The cyst cavity/scar around the cyst had purulent fluid and was therefore cultured. Attention was then turned to the other cyst on the lateral labia majora. 15 blade scalpel was made to make a direct elliptical excision over the cyst sinus and circumferential dissection was taken out with tenotomy scissors with careful dissection. The cyst was removed in 1 piece and sent to pathology and it measured 0.5 x 0.5 cm. These wounds were irrigated with copious amounts of Irrisept and normal saline and hemostasis was obtained with Bovie electrocautery. They were then closed in layers with 4-0 Monocryl deep dermal sutures followed by 4-0 Monocryl running subcuticular suture on the lateral cyst and interrupted 6-0 fast absorbing suture for the medial cyst. This was a total intermediate closure of 4 cm. bacitracin was applied. Tucks pads were then applied with witch glo. Patient tolerated the procedure well and was awakened and taken the PACU in stable condition. Postoperative plan: Follow-up in 1 week for wound check and for review of pathology. Surgical Findings: Consistent with hydradenitis cyst with fluid, but also possible inclusion cyst. F/u path Complications Complications: No Admit VTE Documentation VTE Mechan Device Prophylaxis: SCD's 03/27/25 3153 Cosigner Signature (if applicable): CC: Dr. Nancy Barahona MD; Dr. Shabana Llamas MD Signed Normal [facility] Plastic Surgery Visit Report on 03-27-2025 Plastic Surgery Visit Report [facility] Plastic Reconstructive Surgery [address], [address] [place] [address] OFFICE VISIT Date of Service: 03/27/25 MR#: [id number] Acct: [id number] Name: SIRENA CALHOUN Rep #: [id number] : 2005 Provider: Dr. Shabana Llamas MD Age/Sex: 19/F Location: [facility] Status: Signed Intake Vital Signs 03/26/25 13:29 03/27/25 13:53 Height 5 ft 4 in 5 ft 4 in BP 112/75 Blood Pressure Location Lt brachial Position Sitting Respiration 18 Pulse 82 Temp 98.6 F Temp Source Temporal Pulse Oximetry (%) 97 Oxygen Delivery Method room air Intake Visit Reasons: POST OP Chief Complaint: post op Is patient in pain?: Yes (02/25) Allergies No Known Allergies Allergy (Verified 03/27/25 13:54) Medications ???Medication ???Instructions ???Recorded ???Confirmed ???Type ADRENAL SUPPORT 2 cap PO BID 03/13/25 03/27/25 His tory dextroamphetamine-amphetamin e 5 mg 1 tab PO BID 03/13/25 03/27/25 H istory tablet mecobalamin (vitamin B12) 1,000 1,000 mcg PO DAILY 03/13/25 History mcg chewable tablet doxycycline hyclate 100 mg capsule 100 mg PO BID 7 days #14 caps 03/27/25 Rx oxycodone 5 mg tablet 5 mg PO Q12H PRN pain 5 days #10 0 03/26/25 03/27/25 Rx tabs cephalexin 500 mg capsule 500 mg PO BID 03/27/25 03/27/25 Hi story Nurse's Note: pt here post op rating pain 6/10 Subjective Details: The patient is a 19-year-old female presenting with post-surgical symptoms following cyst removal. The patient reported bruising and swelling at the surgical site, which was initially concerning for a hematoma, but examination revealed soft tissue without blood collection. The incision was noted to be clean, dry, and intact, with no signs of infection at the site. The patient had an infected cyst, which was excised, and a swab showed bacterial growth. The patient is currently on doxycycline, but there may be a need to change antibiotics depending on further results. The patient also reported a burning sensation at the incision site, which occurs intermittently. The sensation is localized to the incision and does not extend to other areas. ROS - Integumentary: Reports bruising and swelling at the surgical site. Denies any other skin changes. - Neurological: Reports burning sensation at the incision site. Denies any other neurological symptoms. Attestation: Documentation on this patient encounter was supported using ambient scribe technology/ voice AI technology. The patient consented to recording for the purpose of documenting the encounter. Provider reviewed content of the generated note prior to signature. Objective Details: - Integumentary: Surgical site clean, dry, and intact with no hematoma. - Palpation: Soft tissue at surgical site, no residual cysts felt. 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 Coding Level of Care Code Global Post Op Diagnoses Inclusion cyst of vulva N90.7 [facility] Medical History Wears contact lenses Wears glasses Marijuana use Low iron Non-smoker Contraceptive management Surgical History Hx of oral surgery Hx of wisdom tooth extraction Family History Other Alcoholism Social History Smoking Status: Never smoker alcohol intake: never substance use type: marijuana caffeine: Yes what type of physical activity do you participate in: walking seatbelt use: always additional social history: Student at [employer], [employer] pt denies vaping, denies edibles. pt denies using aspirin and ibuprofen as needed pt denies blood clots Assessment and Plan (No Qualifiers) Assessment and Plan (1) Inclusion cyst of vulva: Status: Acute Comment: Right labia majora Plan Assessment and Plan The 19-year-old female with a history of an infected cyst presented with post-surgical symptoms including bruising and swelling at the surgical site. The examination revealed no hematoma, and the incision was clean, dry, and intact. The patient is currently on doxycycline, but due to bacterial growth on the swab, a change in antibiotics may be necessary. The patient also reported a burning sensation at the incision site, which is localized and does not extend to other areas. 1. Infected Cyst The patient is currently on doxycycline for the infected cyst, but due to bacterial growth on the swab, a change in antibiotics may be necessary. Follow-up is scheduled to monitor the response to treatment and adjust antibiotics if needed. 2. Post-Surgical Swelling And Bruising The post-surgi (more content not included)... Normal [facility] Anaerobic cultureOrdered By: Shabana Llamas on 03-26-2025 Bacteria identified Anaer cx Nom (Unsp spec) Anaerobic cocci Abnormal [facility] Bacteria identified Anaer cx Nom (Unsp spec) Prevotella bivia Abnormal [facility] Gram stainOrdered By: Shabana Llamas on 03-26-2025 Microscopic observation Gram stain Nom (Unsp spec) [facility] H AND P Exam - Surgicalon H&P Exam - Surgical [facility] Medical Records Department [address] [place] [address] H P Exam - Surgical 03/26/25 1351 MR#: [id number] Acct: [id number] Name: SIRENA CALHOUN Rep #: [id number] : 2005 19 From: Shabana Llamas MD PCP: Dr. Nancy Barahona MD Status:[facility] Location: [place] [address] HPI - General HPI Narrative The patient is a 19-year-old female presenting with an epidermal inclusion cyst. Patient's mother is a physician with whom I work, and patient reports that it is okay to share information with her mother. The cyst has been present for approximately two years, initially removed after one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 (10384)Ordered By: Metal Mixer on 06-30-2023 Albumin [Mass/Vol] 4.5 g/dL Normal 4.0-5.[address] [facility] Internal [facility]; [facility] Work Phone: Comment on above: PATIENT NOT FASTINGP ERFORMED BY: JENI Waddell6370 [facility] [id number] BY: ES [employer] Mwt8772 [facility] [id number] Albumin/Globulin [Mass ratio] 2.0 {ratio} Normal 1.2-2.2 [facility]; [facility] Work Phone: Comment on above: PATIENT NOT FASTINGP ERFORMED BY: JENI Hernandezcoюлия MartinTudlnn7071 [facility] [id number] BY: ES [employer] Wvk6667 [facility] [id number] ALP [Catalytic activity/Vol] 74 U/L Normal 42-106 [facility]; [facility] Work Phone: Comment on above: PATIENT NOT FASTINGP ERFORMED BY: JENI Martinlin6370 [facility] [id number] BY: ES [employer]ix Lre9422 [facility] [id number] ALT [Catalytic activity/Vol] 11 U/L Normal 0-32 [facility]; [facility] Work Phone: Comment on above: PATIENT NOT FASTINGP ERFORMED BY: JENI Martinlin6370 [facility] [id number] BY: ES [employer] Hmi8519 [facility] [id number] AST [Catalytic activity/Vol] 17 U/L Normal 0-40 [facility]; [facility] Work Phone: Comment on above: PATIENT NOT FASTINGP ERFORMED BY: JENI Labmichelle MartinAnagwy3057 [facility] [id number] BY: ES [employer] Nel0455 [facility] [id number] Bilirubin [Mass/Vol] 0.2 mg/dL Normal 0.0-1.2 [facility]; [facility] Work Phone: Comment on above: PATIENT NOT FASTINGP ERFORMED BY: JENI Labcoюлия MartinOtyzyq3351 [facility] [id number] BY: ES [employer] Nrj4402 [facility] [id number] Calcium [Mass/Vol] 9.5 mg/dL Normal 8.7-10.[address] [facility] Internal [facility]; [facility] Work Phone: Comment on above: PATIENT NOT FASTINGP ERFORMED BY: JENI [facility] Cgeaqv3751 [facility] [id number] BY: ES [employer] Fvo1638 [facility] [id number] Chloride [Moles/Vol] 105 mmol/L Normal 96-106 [facility]; [facility] Work Phone: Comment on above: PATIENT NOT FASTINGP ERFORMED BY: JENI Martinlin6370 [facility] [id number] BY: ES [employer] Lpy3647 [facility] [id number] CO2 [Moles/Vol] 24 mmol/L Normal 20-29 [facility] Internal Medicine; [facility] Work Phone: Comment on above: PATIENT NOT FASTINGP ERFORMED BY: JENI Martinlin6370 [facility] [id number] BY: ES [employer]ix Ezs9398 [facility] [id number] Creatinine [Mass/Vol] 0.75 mg/dL Normal 0.57-1.00 [facility]; [facility] Work Phone: Comment on above: PATIENT NOT FASTINGP ERFORMED BY: JENI Labmichelle MartinDsjvms2583 [facility] [id number] BY: ES [employer] Vuj9702 [facility] [id number] GFR/1.73 sq M.predicted among non-blacks MDRD (S/P/Bld) [Vol rate/Area] 117 mL/min/{1.73_m2} Normal Com[facility] ve Internal [facility]; [facility] Work Phone: Comment on above: PATIENT NOT FASTINGP ERFORMED BY: JENI Artiюлия MartinRfjmzq3742 [facility] [id number] BY: ES [employer] Vew0016 [facility] [id number] Globulin (S) [Mass/Vol] 2.3 g/dL Normal 1.5-4.5 [facility]; [facility] Work Phone: Comment on above: PATIENT NOT FASTINGP ERFORMED BY: JENI Labmichelle MartinBwmuco3546 [facility] [id number] BY: ES [employer] Wgs3137 [facility] [id number] Glucose [Mass/Vol] 72 mg/dL Normal 70-[address] [facility] Internal [facility]; [facility] Work Phone: Comment on above: PATIENT NOT FASTINGP ERFORMED BY: JENI Artiюлия MartinCotmon1770 [facility] [id number] BY: ES [employer]ix Kdi7882 [facility] [id number] Potassium [Moles/Vol] 4.5 mmol/L Normal 3.5-5.2 [facility]; [facility] Work Phone: Comment on above: PATIENT NOT FASTINGP ERFORMED BY: JENI Artiюлия MartinYlbytc8453 [facility] [id number] BY: ES [employer] Qnk6086 [facility] [id number] Protein [Mass/Vol] 6.8 g/dL Normal 6.0-8.[address] [facility] Internal [facility]; [facility] Work Phone: Comment on above: PATIENT NOT FASTINGP ERFORMED BY: JENI Labmichelle MartinQgeltb2943 [facility] [id number] BY: ES [employer]ix Und2224 [facility] [id number] Sodium [Moles/Vol] 144 mmol/L Normal 134-144 [facility]; [facility] Work Phone: Comment on above: PATIENT NOT FASTINGP ERFORMED BY: JENI Marymichelle MaritnXmcrto7786 [facility] [id number] BY: ES [employer]ix Tkg7228 [facility] [id number] Urea nitrogen [Mass/Vol] 10 mg/dL Normal 6-20 [facility]; [facility] Work Phone: Comment on above: PATIENT NOT FASTINGP ERFORMED BY: JENI Porous Powerюлия MartinOdchnn1054 [facility] [id number] BY: ES [employer]ix Zru6859 [facility] [id number] Urea nitrogen/Creatinin e [Mass ratio] 13 mg/mg Normal 9-23 [facility]; [facility] Work Phone: Comment on above: PATIENT NOT FASTINGP ERFORMED BY: JENI [employer] Xztqqm6488 [facility] [id number] BY: ES [employer]ix Lbx9226 [facility] [id number] T3, FREE (TRIDOTHYRONINE) (3 0621)Ordered By: Metal Mixer on 06-30-2023 Free T3 [Mass/Vol] 2.7 pg/mL Normal 2.0-4.4 [facility]; [facility] Work Phone: Comment on above: PATIENT NOT FASTINGP ERFORMED BY: JENI [employer] Unvred4263 [facility] [id number] BY: ES [employer]ix Sjq4646 [facility] [id number] THYROXINE FREE (69338)Ordere d By: Metal Mixer on 06-30-2023 Free T4 [Mass/Vol] 1.20 ng/dL Normal 0.82-1.77 [facility]; [facility] Work Phone: Comment on above: PATIENT NOT FASTINGP ERFORMED BY: JENI Porous Powerюлия WaddellHvsovt3608 [facility] [id number] BY: ES [employer]ix Hsp3168 [facility] [id number] TSH (THYROID STIMULATING HOR CHAUNCEY) (94386)Ordered By: Metal Mixer on 06-30-2023 TSH Qn 1.300 {uIU/mL} Normal 0.450-4.50 0 [facility]; [facility] Work Phone: Comment on above: PATIENT NOT FASTINGP ERFORMED BY: JENI Porous Powerюлия WaddellLumjtd0566 [facility] [id number] BY: ES [employer]ix Hxf3690 [facility] [id number] CBC, PLATELETS & MANUAL DIFF (74566)Ordered By: Metal Mixer on 04-13-2023 Basophils (Bld) [#/Vol] 0.0 10*3/uL Normal 0.0-0.2 [facility]; [facility] Work Phone: Comment on above: fax results to Dr. Alan hummel - [phone]; A courtesy copy of this report has been sent to [phone] WAS FASTINGPERFORMED BY: JENI Waddell6370 [facility] [id number] Basophils/100 WBC (Bld) 0 % Normal [facility]; [facility] Work Phone: Comment on above: fax results to Dr. Alan hummel - [phone]; A courtesy copy of this report has been sent to [phone] WAS FASTINGPERFORMED BY: JENI Martinlin6370 [facility] [id number] Eosinophils (Bld) [#/Vol] 0.1 10*3/uL Normal 0.0-0.4 [facility]; [facility] Work Phone: Comment on above: fax results to Dr. Alan hummel - [phone]; A courtesy copy of this report has been sent to [phone] WAS FASTINGPERFORMED BY: JENI [facility] Clxqml3714 [facility] [id number] Eosinophils/100 WBC (Bld) 2 % Normal [facility]; [facility] Work Phone: Comment on above: fax results to Dr. Alan hummel - [phone]; A courtesy copy of this report has been sent to [phone] WAS FASTINGPERFORMED BY: CB [facility] Zrcjiv6711 [facility] [id number] Erythrocyte distribution width (RBC) [Ratio] 13.4 % Normal 11.7-15.4 [facility]; [facility] Work Phone: Comment on above: fax results to Dr. Alan hummel - [phone]; A courtesy copy of this report has been sent to [phone] WAS FASTINGPERFORMED BY: JENI [facility] Kbrdvr0204 [facility] [id number] Hematocrit (Bld) [Volume fraction] 43.2 % Normal 34.0-46.6 [facility]; [facility] Work Phone: Comment on above: fax results to Dr. Alan hummel - [phone]; A courtesy copy of this report has been sent to [phone] WAS FASTINGPERFORMED BY: JENI Labcoюлия Tocvjr3329 [facility] [id number] Hemoglobin (Bld) [Mass/Vol] 13.4 g/dL Normal 11.1-15.9 [facility]; [facility] Work Phone: Comment on above: fax results to Dr. Alan hummel - [phone]; A courtesy copy of this report has been sent to [phone] WAS FASTINGPERFORMED BY: JENI Labcoюлия Tupqyn1448 [facility] [id number] Immature granulocytes (Bld) [#/Vol] 0.0 10*3/uL Normal 0.0-0.1 [facility]; [facility] Work Phone: Comment on above: fax results to Dr. Alan hummel - [phone]; A courtesy copy of this report has been sent to [phone] WAS FASTINGPERFORMED BY: JENI Waddell6370 [facility] [id number] Immature granulocytes/100 WBC (Bld) 0 % Normal [facility]; [facility] Work Phone: Comment on above: fax results to Dr. Alan hummel - [phone]; A courtesy copy of this report has been sent to [phone] WAS FASTINGPERFORMED BY: JENI Labmichelle MartinAfehcm3431 [facility] [id number] Lymphocytes (Bld) [#/Vol] 2.0 10*3/uL Normal 0.7-3.1 [facility]; [facility] Work Phone: Comment on above: fax results to Dr. Alan hummel - [phone]; A courtesy copy of this report has been sent to [phone] WAS FASTINGPERFORMED BY: JENI Waddell6370 [facility] [id number] Lymphocytes/100 WBC (Bld) 29 % Normal [facility]; [facility] Work Phone: Comment on above: fax results to Dr. Alan hummel - [phone]; A courtesy copy of this report has been sent to [phone] WAS FASTINGPERFORMED BY: JENI [facility] Phrrvm9433 [facility] [id number] MCH (RBC) [Entitic mass] 25.3 pg Abnormal 26.6-33.0 [facility]; [facility] Work Phone: Comment on above: fax results to Dr. Alan hummel - [phone]; A courtesy copy of this report has been sent to [phone] WAS FASTINGPERFORMED BY: JENI Plastic Junglemichelle MartinGrsycc2115 [facility] [id number] MCHC (RBC) [Mass/Vol] 31.0 g/dL Abnormal 31.5-35.7 [facility]; [facility] Work Phone: Comment on above: fax results to Dr. Alan hummel - [phone]; A courtesy copy of this report has been sent to [phone] WAS FASTINGPERFORMED BY: [facility] Oyxqij4392 [facility] [id number] MCV (RBC) [Entitic vol] 82 fL Normal 79-97 [facility]; [facility] Work Phone: Comment on above: fax results to Dr. Alan hummel - [phone]; A courtesy copy of this report has been sent to [phone] WAS FASTINGPERFORMED BY: JENI Martinlin6370 [facility] [id number] Monocytes (Bld) [#/Vol] 0.6 10*3/uL Normal 0.1-0.9 [facility]; [facility] Work Phone: Comment on above: fax results to Dr. Alan hummel - [phone]; A courtesy copy of this report has been sent to [phone] WAS FASTINGPERFORMED BY: JENI Martinlin6370 [facility] [id number] Monocytes/100 WBC (Bld) 9 % Normal [facility]; [facility] Work Phone: Comment on above: fax results to Dr. Alan hummle - [phone]; A courtesy copy of this report has been sent to [phone] WAS FASTINGPERFORMED BY: JENI [facility] MartinXpgdia7693 [facility] [id number] Neutrophils (Bld) [#/Vol] 4.2 10*3/uL Normal 1.4-7.0 [facility]; [facility] Work Phone: Comment on above: fax results to Dr. Alan hummel - [phone]; A courtesy copy of this report has been sent to [phone] WAS FASTINGPERFORMED BY: JENI Waddell6370 [facility] [id number] Neutrophils/100 WBC (Bld) 60 % Normal [facility]; [facility] Work Phone: Comment on above: fax results to Dr. Alan hummel - [phone]; A courtesy copy of this report has been sent to [phone] WAS FASTINGPERFORMED BY: JENI Labcoюлия MartinZlwhbh7679 [facility] [id number] Platelets (Bld) [#/Vol] 363 10*3/uL Normal 150-450 [facility]; [facility] Work Phone: Comment on above: fax results to Dr. Alan hummel - [phone]; A courtesy copy of this report has been sent to [phone] WAS FASTINGPERFORMED BY: JENI Labmichelle Waddell6370 [facility] [id number] RBC (Bld) [#/Vol] 5.29 10*6/uL Abnormal 3.77-5.28 [facility] Internal [facility]; [facility] Internal Medicine Work Phone: Comment on above: fax results to Dr. Alan hummel - [phone]; A courtesy copy of this report has been sent to [phone] WAS FASTINGPERFORMED BY: JENI [facility] Csgcbo7430 [facility] [id number] WBC (Bld) [#/Vol] 7.0 10*3/uL Normal 3.4-10.8 [facility]; [facility] Work Phone: Comment on above: fax results to Dr. Alan hummel - [phone]; A courtesy copy of this report has been sent to [phone] WAS FASTINGPERFORMED BY: [employer]70 [facility] [id number] FERRITIN (49733)Ordered By: Metal Mixer on 04-13-2023 Ferritin [Mass/Vol] 11 ng/mL Abnormal 15-77 [facility]; [facility] Work Phone: Comment on above: fax results to Dr. Alan hummel - [phone]; A courtesy copy of this report has been sent to [phone] WAS FASTINGPERFORMED BY: RedT6370 [facility] [id number] HEPATITIS B SURFACE ANTIGEN (45027)Ordered By: Metal Mixer on 04-13-2023 HBV surface Ag IA Ql Negative Normal [facility]; [facility] Work Phone: Comment on above: fax results to Dr. Alan hummel - [phone]; A courtesy copy of this report has been sent to [phone] WAS FASTINGPERFORMED BY: RedT6370 [facility] [id number] HEPATITIS C ANTIBODY (83831) Ordered By: Metal Mixer on 04-13-2023 HCV Ab Signal/Cutoff IA [Rel units/Vol] Non-Reactive Normal [facility]; [facility] Work Phone: Comment on above: HCV antibody alone d oes not differentiate between previouslyresolved infection and active infection. Equivocal and ReactiveHCV antibody results should be followed up with an HCV RNA testto support the diagnosis of active HCV infection. fax results to Dr. Alan hummel - [phone]; A courtesy copy of this report has been sent to [phone] WAS FASTINGPERFORMED BY: [employer]70 [facility] [id number] HIV-1 AG W/HIV-1 & HIV-2 AB (46433)Ordered By: Metal Mixer on 04-13-2023 HIV 1+2 Ab+HIV1 p24 Ag IA Ql Non-Reactive Normal [facility]; [facility] Work Phone: Comment on above: HIV NegativeHIV-1/HI V-2 antibodies and HIV-1 p24 antigen were NOT detected.There is no laboratory evidence of HIV infection. fax results to Dr. Alan hummel - [phone]; A courtesy copy of this report has been sent to [phone] WAS FASTINGPERFORMED BY: [employer]70 [employer] [facility] [id number] LIPID PANEL (62753)Ordered B y: Metal Mixer on 04-13-2023 Cholesterol [Mass/Vol] 130 mg/dL Normal 100-169 [facility]; [facility] Work Phone: Comment on above: A courtesy copy of t his report has been sent to [phone] WAS FASTINGPERFORMED BY: JENI Hum70 [place] [employer] [facility] [id number] Cholesterol in HDL [Mass/Vol] 36 mg/dL Abnormal [facility]; [facility] Work Phone: Comment on above: A courtesy copy of t his report has been sent to [phone] WAS FASTINGPERFORMED BY: [employer] [facility] [id number] Triglyceride [Mass/Vol] 61 mg/dL Normal 0-89 [facility]; [facility] Work Phone: Comment on above: A courtesy copy of t his report has been sent to [phone] WAS FASTINGPERFORMED BY: [employer] [facility] [id number] LIPID PANEL (59768) 13 mg/dL Normal 5-40 [facility]; [facility] Work Phone: Comment on above: A courtesy copy of t his report has been sent to [phone] WAS FASTINGPERFORMED BY: [employer]70 [facility] [id number] LIPID PANEL (74076) 81 mg/dL Normal 0-109 [facility]; [facility] Work Phone: Comment on above: A courtesy copy of t his report has been sent to [phone] WAS FASTINGPERFORMED BY: JENI [employer]ronic6370 [facility] [id number] LIPID PANEL (94910) 2.3 {ratio} Normal 0.0-3.2 [facility]; [facility] Work Phone: Comment on above: LDL/HDL Ratio Men Wo men 1/2 Avg.Risk 1.0 1.5 Avg.Risk 3.6 3.2 2X Avg.Risk 6.2 5.0 3X Avg.Risk 8.0 6.1 A courtesy copy of t his report has been sent to [phone] WAS FASTINGPERFORMED BY: JENI Hum70 [facility] [id number] METABOLIC PANEL, COMPREHENSI VE (47386)Ordered By: Metal Mixer on 04-13-2023 Albumin [Mass/Vol] 4.7 g/dL Normal 4.0-5.[address] [facility]; [facility] Work Phone: Comment on above: A courtesy copy of t his report has been sent to [phone] WAS FASTINGPERFORMED BY: JENI Hum70 [facility] [id number] Albumin/Globulin [Mass ratio] 2.0 {ratio} Normal 1.2-2.2 [facility]; [facility] Work Phone: Comment on above: A courtesy copy of t his report has been sent to [phone] WAS FASTINGPERFORMED BY: Hum70 [place] WaterSmart SoftwareFormerly [facility] [id number] ALP [Catalytic activity/Vol] 77 U/L Normal 42-106 [facility]; [facility] Work Phone: Comment on above: A courtesy copy of t his report has been sent to [phone] WAS FASTINGPERFORMED BY: JENI Hum70 [facility] [id number] ALT [Catalytic activity/Vol] 17 U/L Normal 0-32 [facility]; [facility] Work Phone: Comment on above: A courtesy copy of t his report has been sent to [phone] WAS FASTINGPERFORMED BY: [facility] Qylphw3474 [facility] [id number] AST [Catalytic activity/Vol] 27 U/L Normal 0-40 [facility]; [facility] Work Phone: Comment on above: A courtesy copy of t his report has been sent to [phone] WAS FASTINGPERFORMED BY: [facility] Dkddui3902 [facility] [id number] Bilirubin [Mass/Vol] 0.4 mg/dL Normal 0.0-1.2 [facility]; [facility] Work Phone: Comment on above: A courtesy copy of t his report has been sent to [phone] WAS FASTINGPERFORMED BY: JENI [facility] Exblgd0338 [facility] [id number] Calcium [Mass/Vol] 9.3 mg/dL Normal 8.7-10.[address] [facility] Internal [facility]; [facility] Work Phone: Comment on above: A courtesy copy of t his report has been sent to [phone] WAS FASTINGPERFORMED BY: [facility] Ktlnfu3375 [facility] [id number] Chloride [Moles/Vol] 103 mmol/L Normal 96-106 [facility]; [facility] Work Phone: Comment on above: A courtesy copy of t his report has been sent to [phone] WAS FASTINGPERFORMED BY: [facility] Dmckoz7195 [place] [facility] [id number] CO2 [Moles/Vol] 23 mmol/L Normal 20-29 [facility]; [facility] Work Phone: Comment on above: A courtesy copy of t his report has been sent to [phone] WAS FASTINGPERFORMED BY: [facility] Xkgssn4547 [facility] [id number] Creatinine [Mass/Vol] 0.90 mg/dL Normal 0.57-1.00 [facility]; [facility] Work Phone: Comment on above: A courtesy copy of t his report has been sent to [phone] WAS FASTINGPERFORMED BY: JENI Leftronic6370 [facility] [id number] GFR/1.73 sq M.predicted among non-blacks MDRD (S/P/Bld) [Vol rate/Area] 94 mL/min/{1.73_m2} Normal Comprehensiv e Internal Medicine; [facility] Work Phone: Comment on above: A courtesy copy of t his report has been sent to [phone] WAS FASTINGPERFORMED BY: JENI Hum70 [facility] [id number] Globulin (S) [Mass/Vol] 2.4 g/dL Normal 1.5-4.5 [facility]; [facility] Work Phone: Comment on above: A courtesy copy of t his report has been sent to [phone] WAS FASTINGPERFORMED BY: JENI LabERTH [employer]70 [facility] HospitalImmure RecordsFormerly [facility] [id number] Glucose [Mass/Vol] 80 mg/dL Normal 70-[address] [facility] Internal Medicine; [facility] Work Phone: Comment on above: A courtesy copy of t his report has been sent to [phone] WAS FASTINGPERFORMED BY: Leftronic6370 [facility] [id number] Potassium [Moles/Vol] 4.6 mmol/L Normal 3.5-5.2 [facility]; [facility] Work Phone: Comment on above: A courtesy copy of t his report has been sent to [phone] WAS FASTINGPERFORMED BY: Quisic Brawdq6112 [facility] [id number] Protein [Mass/Vol] 7.1 g/dL Normal 6.0-8.[address] [facility] Internal Medicine; [facility] Work Phone: Comment on above: A courtesy copy of t his report has been sent to [phone] WAS FASTINGPERFORMED BY: Leftronic6370 Sp[facility] KineticsFormerly [facility] [id number] Sodium [Moles/Vol] 139 mmol/L Normal 134-[address] [facility] Internal Medicine; [facility] Work Phone: Comment on above: A courtesy copy of t his report has been sent to [phone] WAS FASTINGPERFORMED BY: [employer]70 ZyngaFormerly [facility] [id number] Urea nitrogen [Mass/Vol] 12 mg/dL Normal 6-20 [facility]; [facility] Work Phone: Comment on above: A courtesy copy of t his report has been sent to [phone] WAS FASTINGPERFORMED BY: Hum70 [place] Water[employer] SoftwareFormerly [facility] [id number] Urea nitrogen/Creatinin e [Mass ratio] 13 mg/mg Normal 9-23 [facility]; [facility] Work Phone: Comment on above: A courtesy copy of t his report has been sent to [phone] WAS FASTINGPERFORMED BY: [employer]70 [place] Water[employer] SoftwareFormerly [facility] [id number] RPR (RAPID PLASMA REAGIN) ([id number])Ordered By: Metal Mixer on 04-13-2023 Reagin Ab RPR Ql (S) Non-Reactive Normal [facility]; [facility] Work Phone: Comment on above: fax results to Dr. Alan hummel - [phone]; A courtesy copy of this report has been sent to [phone] WAS FASTINGPERFORMED BY: RedT6370 [facility] [id number] TSH (THYROID STIMULATING HOR CHAUNCEY) ([id number])Ordered By: Metal Mixer on 04-13-2023 TSH Qn 1.780 {uIU/mL} Normal 0.450-4.50 0 [facility]; [facility] Work Phone: Comment on above: A courtesy copy of t his report has been sent to [phone] WAS FASTINGPERFORMED BY: [employer] Hqcytb9684 [employer] [place] [id number] URINE AMY CULTURE-IDENTIF[place] ([id number])Ordered By: Metal Mixer on 12-20-2022 Bacteria identified Cx Nom (U) Final report Abnormal [facility]; [facility] Work Phone: Comment on above: PERFORMED BY: [employer]70 [employer] [place] [id number] Information: SRC:UR Bacteria identified Cx Nom (U) ECV Abnormal [facility]; [facility] Work Phone: Comment on above: Escherichia coli, id entified by an automated biochemical system.Multi-Drug Resistant OrganismSusceptibility profile is consistent with a probable ESBL.Greater than 100,000 colony forming units per mL S = Susceptible; I = Intermediate; R = Resistant P = Positive; N = Negative MICS are expressed in micrograms per mL Antibiotic RSLT#1 RSLT#2 RSLT#3 RSLT#4Amoxicillin/Clavulanic Acid SAmpicillin RCefazolin RCefepime SCeftriaxone RCefuroxime RCiprofloxacin RErtapenem SGentamicin SImipenem SLevofloxacin RMeropenem SNitrofurantoin SPiperacillin/Tazobactam STetracycline STobramycin STrimethoprim/Sulfa R PERFORMED BY: MindQuilt6370 [employer] [place] [id number] Information: SRC:UR Urinalysis, Office (85725)Or dered By: Sharita Price on 12-20-2022 Bilirubin Ql (U) Negative Normal Comprehe nsive Internal Medicine; [facility] Work Phone: Glucose Test strip (U) [Mass/Vol] Negative Normal [facility]; [facility] Work Phone: Hemoglobin Ql (U) Hemolyzed Small Normal Co mprehensive [facility]; [facility] Work Phone: Ketones Ql (U) Negative Normal Comprehens jeffrey Internal Medicine; [facility] Work Phone: Leukocyte esterase Test strip Ql (U) Moderate Normal [facility]; [facility] Work Phone: Nitrite Ql (U) Negative Normal Comprehens jeffrey Internal Medicine; [facility] Internal Medicine Work Phone: pH (U) 6 [pH] Abnormal [facility]; [facility] Work Phone: Protein Ql (U) ++ Abnormal Comprehens jeffrey Internal Medicine; [facility] Internal Medicine Work Phone: Specific gravity (U) [Rel density] 1.030 1 Abnormal [facility]; [facility] Work Phone: Urobilinogen (24H U) [Mass/Time] Normal Normal [facility] Internal Medicine; [facility] Medicine Work Phone: CALCIFEDIOL (01616)Ordered B y: Metal Mixer on 11-18-2022 25-hydroxyvitamin D [Mass/Vol] 36.1 ng/mL Normal 30.0-100.0 [facility] Internal Medicine; [facility] Medicine Work Phone: Comment on above: Vitamin D deficiency has been defined by the [place] ofMedicine and an Endocrine Society practice guideline as alevel of serum 25-OH vitamin D less than 20 ng/mL (1,2).The Endocrine Society went on to further define vitamin Dinsufficiency as a level between 21 and 29 ng/mL (2).1. IOM ([place] of Medicine). 2010. Dietary reference intakes for calcium and D. Colon [place]: The National Academies Press.2. Ivy MF, Chadd NC, Jesus-Kenny ALEJANDRO, et al. Evaluation, treatment, and prevention of vitamin D deficiency: an Endocrine Society clinical practice guideline. JCEM. 2010; 96(7):1911-30. PATIENT NOT FASTINGP ERFORMED BY: [facility] Kmtdoi2790 [facility] [id number] CBC, PLATELETS & MANUAL DIFF (81039)Ordered By: Metal Mixer on 11-18-2022 Basophils (Bld) [#/Vol] 0.0 10*3/uL Normal 0.0-0.2 [facility]; [facility] Work Phone: Comment on above: PATIENT NOT FASTINGP ERFORMED BY: JENI Labcoюлия MartinRnwtgh5133 Wolf RoadDublin [place] [id number] Basophils/100 WBC (Bld) 1 % Normal [facility]; [facility] Work Phone: Comment on above: PATIENT NOT FASTINGP ERFORMED BY: CB [facility] Bqenrr7603 [address] RoadDublin [place] [id number] Eosinophils (Bld) [#/Vol] 0.1 10*3/uL Normal 0.0-0.4 [facility]; [facility] Work Phone: Comment on above: PATIENT NOT FASTINGP ERFORMED BY: CB [facility] Lgbcyp6925 [address] RoadDublin [place] [id number] Eosinophils/100 WBC (Bld) 1 % Normal [facility]; [facility] Work Phone: Comment on above: PATIENT NOT FASTINGP ERFORMED BY: CB [facility] Iflsmb0552 [address] RoadDublin [place] [id number] Erythrocyte distribution width (RBC) [Ratio] 13.3 % Normal 11.7-15.4 [facility]; [facility] Work Phone: Comment on above: PATIENT NOT FASTINGP ERFORMED BY: CB [facility] Tlthms2568 [address] RoadDublin [place] [id number] Hematocrit (Bld) [Volume fraction] 42.8 % Normal 34.0-46.6 [facility]; [facility] Work Phone: Comment on above: PATIENT NOT FASTINGP ERFORMED BY: CB [facility] Sbhnai0630 [address] RoadDublin [place] [id number] Hemoglobin (Bld) [Mass/Vol] 13.8 g/dL Normal 11.1-15.9 [facility]; [facility] Work Phone: Comment on above: PATIENT NOT FASTINGP ERFORMED BY: CB [facility] Bxadwo8557 [address] RoadDublin [place] [id number] Immature granulocytes (Bld) [#/Vol] 0.0 10*3/uL Normal 0.0-0.1 [facility]; [facility] Work Phone: Comment on above: PATIENT NOT FASTINGP ERFORMED BY: JENI Artiюлия MartinRdxqxi6494 [facility] [id number] Immature granulocytes/100 WBC (Bld) 1 % Normal [facility]; [facility] Work Phone: Comment on above: PATIENT NOT FASTINGP ERFORMED BY: JENI [facility] Jpgtjl3106 [facility] [id number] Lymphocytes (Bld) [#/Vol] 1.6 10*3/uL Normal 0.7-3.1 [facility]; [facility] Work Phone: Comment on above: PATIENT NOT FASTINGP ERFORMED BY: JENI Martinlin6370 [facility] [id number] Lymphocytes/100 WBC (Bld) 27 % Normal [facility]; [facility] Work Phone: Comment on above: PATIENT NOT FASTINGP ERFORMED BY: JENI Martinlin6370 [facility] [id number] MCH (RBC) [Entitic mass] 26.4 pg Abnormal 26.6-33.0 [facility]; [facility] Work Phone: Comment on above: PATIENT NOT FASTINGP ERFORMED BY: JENI Labpamela Fttlbs3279 [facility] [id number] MCHC (RBC) [Mass/Vol] 32.2 g/dL Normal 31.5-35.7 [facility]; [facility] Work Phone: Comment on above: PATIENT NOT FASTINGP ERFORMED BY: JENI Marymichelle MartinVhmmiq0050 [facility] [id number] MCV (RBC) [Entitic vol] 82 fL Normal 79-97 [facility]; [facility] Work Phone: Comment on above: PATIENT NOT FASTINGP ERFORMED BY: JENI Waddell6[address] RoadDublin [place] [id number] Monocytes (Bld) [#/Vol] 0.6 10*3/uL Normal 0.1-0.9 [facility]; [facility] Work Phone: Comment on above: PATIENT NOT FASTINGP ERFORMED BY: JENI Martinlin6370 [address] RoadDublin [place] [id number] Monocytes/100 WBC (Bld) 11 % Normal [facility]; [facility] Work Phone: Comment on above: PATIENT NOT FASTINGP ERFORMED BY: JENI Labcoюлия MartinBbexde7009 [address] RoadDublin [place] [id number] Neutrophils (Bld) [#/Vol] 3.6 10*3/uL Normal 1.4-7.0 [facility]; [facility] Work Phone: Comment on above: PATIENT NOT FASTINGP ERFORMED BY: JENI Waddell6[address] RoadDublin [place] [id number] Neutrophils/100 WBC (Bld) 59 % Normal [facility]; [facility] Work Phone: Comment on above: PATIENT NOT FASTINGP ERFORMED BY: JENI Waddell6[address]Dublin [place] [id number] Platelets (Bld) [#/Vol] 295 10*3/uL Normal 150-450 [facility]; [facility] Work Phone: Comment on above: PATIENT NOT FASTINGP ERFORMED BY: JENI Labmichelle MartinNssdyt4468 [address] RoadDublin [place] [id number] RBC (Bld) [#/Vol] 5.22 10*6/uL Normal 3.77-5.28 Compr ehensive Internal Medicine; [facility] Work Phone: Comment on above: PATIENT NOT FASTINGP ERFORMED BY: JENI Labmichelle MartinQgeuov6816 [address] RoadDublin [place] [id number] WBC (Bld) [#/Vol] 5.9 10*3/uL Normal 3.4-10.8 Compre hensive Internal Medicine; [facility] Work Phone: Comment on above: PATIENT NOT FASTINGP ERFORMED BY: JENI [facility] Zkeoad2781 [address] RoadDublin [place] [id number] FERRITIN ([id number])Ordered By: Metal Mixer on 11-18-2022 Ferritin [Mass/Vol] 10 ng/mL Abnormal 15-77 [facility]; [facility] Work Phone: Comment on above: PATIENT NOT FASTINGP ERFORMED BY: CB [facility] Xpchul7425 [address] RoadDublin [place] [id number] IRON BINDING CAPACITY (TIBC) (13907)Ordered By: Metal Mixer on 11-18-2022 Iron [Mass/Vol] 57 ug/dL Normal 27-159 [facility] Internal Medicine; [facility] Work Phone: Comment on above: PATIENT NOT FASTINGP ERFORMED BY: JENI [facility] Xzapjd0279 [address] RoadDublin [place] [id number] Iron binding capacity [Mass/Vol] 476 ug/dL Abnormal 250-450 [facility]; [facility] Work Phone: Comment on above: PATIENT NOT FASTINGP ERFORMED BY: CB [facility] Waecja7132 [address] RoadDublin [place] [id number] Iron binding capacity.unsaturat ed [Mass/Vol] 419 ug/dL Normal 131-425 [facility]; [facility] Work Phone: Comment on above: PATIENT NOT FASTINGP ERFORMED BY: CB [facility] Ucoiin0510 [address] RoadDublin [place] [id number] Iron saturation [Mass fraction] 12 % Abnormal 15-55 [facility]; [facility] Work Phone: Comment on above: PATIENT NOT FASTINGP ERFORMED BY: CB [facility] Xshwuf7875 [address] RoadDublin [place] [id number] METABOLIC PANEL, COMPREHENSI VE (14840)Ordered By: Metal Mixer on 11-18-2022 Albumin [Mass/Vol] 4.6 g/dL Normal 3.9-5.[address] [facility] Internal Medicine; [facility] Work Phone: Comment on above: PATIENT NOT FASTINGP ERFORMED BY: JENI [facility] Rhgbuu7744 [address] RoadDublin [place] [id number] Albumin/Globulin [Mass ratio] 1.6 {ratio} Normal 1.2-2.2 [facility]; [facility] Work Phone: Comment on above: PATIENT NOT FASTINGP ERFORMED BY: JENI [facility] Ljjjgl1775 [address] RoadDublin [place] [id number] ALP [Catalytic activity/Vol] 102 U/L Normal 42-106 [facility]; [facility] Work Phone: Comment on above: PATIENT NOT FASTINGP ERFORMED BY: CB [facility] Zfqmyw0983 [address] RoadDublin [place] [id number] ALT [Catalytic activity/Vol] 24 U/L Normal 0-32 [facility]; [facility] Work Phone: Comment on above: PATIENT NOT FASTINGP ERFORMED BY: JENI [facility] Zqzwee4236 [address] RoadDublin [place] [id number] AST [Catalytic activity/Vol] 24 U/L Normal 0-40 [facility]; [facility] Work Phone: Comment on above: PATIENT NOT FASTINGP ERFORMED BY: JENI [facility] Zusltq8561 [address] RoadDublin [place] [id number] Bilirubin [Mass/Vol] 0.3 mg/dL Normal 0.0-1.2 [facility]; [facility] Work Phone: Comment on above: PATIENT NOT FASTINGP ERFORMED BY: CB [facility] Imnxct7768 [address] RoadDublin [place] [id number] Calcium [Mass/Vol] 9.6 mg/dL Normal 8.7-10.[address] [facility] Internal [facility]; [facility] Work Phone: Comment on above: PATIENT NOT FASTINGP ERFORMED BY: CB [facility] Bmzwoo3504 [address] RoadDublin [place] [id number] Chloride [Moles/Vol] 102 mmol/L Normal 96-106 [facility]; [facility] Work Phone: Comment on above: PATIENT NOT FASTINGP ERFORMED BY: CB [facility] Vxhpxw9309 [address] RoadDublin [place] [id number] CO2 [Moles/Vol] 23 mmol/L Normal 20-29 [facility]; [facility] Work Phone: Comment on above: PATIENT NOT FASTINGP ERFORMED BY: CB [facility] Dlanpw4119 [address] RoadDublin [place] [id number] Creatinine [Mass/Vol] 0.84 mg/dL Normal 0.57-1.00 [facility]; [facility] Work Phone: Comment on above: PATIENT NOT FASTINGP ERFORMED BY: CB [facility] Bvlfmg7089 [address] RoadDublin [place] [id number] GFR/1.73 sq M.predicted among non-blacks MDRD (S/P/Bld) [Vol rate/Area] 103 mL/min/{1.73_m2} Normal Comprehensi Internal Medicine; [facility] Work Phone: Comment on above: PATIENT NOT FASTINGP ERFORMED BY: CB [facility] Kekqhf0364 [address] RoadDublin [place] [id number] Globulin (S) [Mass/Vol] 2.8 g/dL Normal 1.5-4.5 [facility]; [facility] Work Phone: Comment on above: PATIENT NOT FASTINGP ERFORMED BY: CB [facility] Bsxrou6918 [address] RoadDublin [place] [id number] Glucose [Mass/Vol] 88 mg/dL Normal 70-[address] [facility] Internal [facility]; [facility] Work Phone: Comment on above: PATIENT NOT FASTINGP ERFORMED BY: CB [facility] Npvxen1381 [address] RoadDublin [place] [id number] Potassium [Moles/Vol] 5.1 mmol/L Normal 3.5-5.2 [facility]; [facility] Work Phone: Comment on above: PATIENT NOT FASTINGP ERFORMED BY: CB [facility] Fxcytu2384 [address] RoadDublin [place] [id number] Protein [Mass/Vol] 7.4 g/dL Normal 6.0-8.[address] [facility] Internal [facility]; [facility] Work Phone: Comment on above: PATIENT NOT FASTINGP ERFORMED BY: JENI Labpamela Bdlxxz6895 [address] [facility] [id number] Sodium [Moles/Vol] 138 mmol/L Normal 134-[address] [facility] Internal [facility]; [facility] Work Phone: Comment on above: PATIENT NOT FASTINGP ERFORMED BY: [facility] Wsawyp8461 [place] [facility] [id number] Urea nitrogen [Mass/Vol] 14 mg/dL Normal 6-20 [facility]; [facility] Work Phone: Comment on above: PATIENT NOT FASTINGP ERFORMED BY: JENI Labpamela Gwtrzl1594 [address] [facility] [id number] Urea nitrogen/Creatinin e [Mass ratio] 17 mg/mg Normal 9-23 [facility]; [facility] Work Phone: Comment on above: PATIENT NOT FASTINGP ERFORMED BY: [facility] Ujjvpj5815 [facility] [id number] TSH (THYROID STIMULATING HOR CHAUNCEY) (99519)Ordered By: Metal Mixer on 11-18-2022 TSH Qn 1.000 {uIU/mL} Normal 0.450-4.50 0 [facility]; [facility] Work Phone: Comment on above: PATIENT NOT FASTINGP ERFORMED BY: [facility] Xjsuyq1994 [facility] [id number] Chlamydia trachomatis rRNA d etection by probe and target amplification methodon 07-20-2022 C. trachomatis rRNA TARYN+probe Ql (Unsp spec) Negative Negative [facility] Work Phone: Laboratory - Chemistry and C hemistry - challengeon 07-20-2022 HCG ( test) Ql (U) Negative [facility] Work Phone: Laboratory - Microbiology an d Antimicrobial susceptibilityon 07-20-2022 N. gonorrhoeae DNA TARYN+probe Ql (Unsp spec) Negative Negative [facility] Work Phone: Comment on above: Performed at: =G - L [address] [place] [id number] Director: Magalys Ramirez MD, Phone: [phone] CALCIFEDIOL (55910)Ordered B y: Metal Mixer on 11-29-2021 25-hydroxyvitamin D [Mass/Vol] 34.8 ng/mL Normal 30.0-100.0 [facility]; [facility] Work Phone: Comment on above: Vitamin D deficiency has been defined by the [place] ofMedicine and an Endocrine Society practice guideline as alevel of serum 25-OH vitamin D less than 20 ng/mL (1,2).The Endocrine Society went on to further define vitamin Dinsufficiency as a level between 21 and 29 ng/mL (2).1. IOM ([place] of Medicine). 2010. Dietary reference intakes for calcium and D. Colon [place]: The National Academies Press.2. Ivy MF, Chadd HUERTAS, Betsy ALEJANDRO, et al. Evaluation, treatment, and prevention of vitamin D deficiency: an Endocrine Society clinical practice guideline. JCEM. 2010; 96(7):1911-30. PATIENT NOT FASTINGP ERFORMED BY: YoQueVosFormerly [facility] [id number] Herpes Simplex 1&2 IGG (8669 6)Ordered By: Metal Mixer on 11-29-2021 HSV 1 IgG IA Qn (S) {index_val} Normal 0.00-0.90 [facility]; [facility] Work Phone: Comment on above: Negative <0.91 Equiv ocal 0.91 - 1.09 Positive >1.09 Note: Negative indicates no antibodies detected to HSV-1. Equivocal may suggest early infection. If clinically appropriate, retest at later date. Positive indicates antibodies detected to HSV-1. PATIENT NOT FASTINGP ERFORMED BY: RedT6370 [employer] [employer]ineticsFormerly [facility] [id number] HSV 2 IgG IA Qn (S) {index_val} Normal 0.00-0.90 [facility]; [facility] Work Phone: Comment on above: Negative <0.91 Equiv ocal 0.91 - 1.09 Positive >1.09 Note: Negative indicates no HSV-2 antibodies detected. Positive indicates HSV-2 antibodies detected. Equivocal and low positive HSV-2 screens (Index 0.91-5.00) may be false positive and are reflexed to supplemental testing in accordance with CDC guidelines. PATIENT NOT FASTINGP ERFORMED BY: JENI Labpamela Kscurd0794 [facility] [place] [id number] LIPID PANEL ([id number])Ordered B y: Metal Mixer on 11-29-2021 Cholesterol [Mass/Vol] 138 mg/dL Normal 100-169 [facility]; [facility] Work Phone: Comment on above: PATIENT NOT FASTINGP ERFORMED BY: JENI Labmichelle MartinKirvrr9037 [facility] [id number] Cholesterol in HDL [Mass/Vol] 49 mg/dL Normal [facility]; [facility] Work Phone: Comment on above: PATIENT NOT FASTINGP ERFORMED BY: JENI Labpamela Gqzsny6757 [facility] [id number] Triglyceride [Mass/Vol] 109 mg/dL Abnormal 0-89 [facility]; [facility] Work Phone: Comment on above: PATIENT NOT FASTINGP ERFORMED BY: JENI Labmichelle MartinYutqsr7044 [facility] [id number] LIPID PANEL ([id number]) 20 mg/dL Normal 5-40 [facility]; [facility] Work Phone: Comment on above: PATIENT NOT FASTINGP ERFORMED BY: JENI Labpamela Waqcnu6630 [facility] [id number] LIPID PANEL ([id number]) 69 mg/dL Normal 0-109 [facility]; [facility] Work Phone: Comment on above: PATIENT NOT FASTINGP ERFORMED BY: JENI Labpamela Vitncb6392 [facility] [id number] LIPID PANEL ([id number]) 1.4 {ratio} Normal 0.0-3.2 [facility]; [facility] Work Phone: Comment on above: LDL/HDL Ratio Men Wo men 1/2 Avg.Risk 1.0 1.5 Avg.Risk 3.6 3.2 2X Avg.Risk 6.2 5.0 3X Avg.Risk 8.0 6.1 PATIENT NOT FASTINGP ERFORMED BY: JENI Quisic Miihej8467 [facility] [id number] 2018 Novel Coronavirus (COVI D-19), TARYN ([id number])Ordered By: Metal Mixer on 06-30-20212018 Novel Coronavirus (COVID-19), TARYN ([id number]) Not detected Normal [facility]; [facility] Work Phone: Comment on above: This nucleic acid am plification test was developed and its performancecharacteristics determined by [employer]. Nucleic acidamplification tests include RT-PCR and TMA. This test has not beenFDA cleared or approved. This test has been authorized by FDA underan Emergency Use Authorization (EUA). This test is only authorizedfor the duration of time the declaration that circumstances existjustifying the authorization of the emergency use of in vitrodiagnostic tests for detection of SARS-CoV-2 virus and/or diagnosisof COVID-19 infection under section 564(b)(1) of the Act, 21 U.S.C.360bbb-3(b) (1), unless the authorization is terminated or revokedsooner.When diagnostic testing is negative, the possibility of a falsenegative result should be considered in the context of a patient'srecent exposures and the presence of clinical signs and symptomsconsistent with COVID-19. An individual without symptoms of COVID-19and who is not shedding SARS-CoV-2 virus would expect to have anegative (not detected) result in this assay. PERFORMED BY: [employer] Michelle KMU9110 TW [facility] [id number] BY: JENI [employer]™ Tjpbna5237 [facility] [id number] INHOUSE Rapid Covid/ Flu A/ Flu BOrdered By: Keena Kern on 06-30-2021 SARS-CoV-2 (COVID-19) RNA TARYN+probe Ql (Unsp spec) Negative Normal [facility]; [facility] Work Phone: Rapid Strep Test, Office ([phone])Ordered By: Keena Kern on 06-30-2021 S. pyogenes Ag EIA Ql (Throat) Negative Normal [facility]; [facility] Work Phone: INHOUSE Rapid Covid/ Flu A/ Flu BOrdered By: Keena Kern on 06-24-2021 SARS-CoV-2 (COVID-19) RNA TARYN+probe Ql (Unsp spec) Negative Normal [facility]; [facility] Work Phone: Progress Noteon 11-27-2020 Psychiatric Therapist Authentication Interface Message Text Patient ID: Sirena Calhoun is a 15 y.o. female. Her chief complaint(s) include: Excessive Sweating Assessment 1. Diaphoresis Plan Sirena was seen today for excessive sweating. Diagnoses and all orders for this visit: Diaphoresis - Complete Blood Count with Diff (Lab Collect); Future - Comprehensive metabolic panel (Lab Collect); Future - TSH (Lab Collect); Future - T4, free (Lab Collect); Future No follow-ups on file. We discussed Sirena's diet changes as well as avoiding excessive exercise. Current weight is fine. Rule out organic causes- thyroid/ anemia. May have anxiety component. Subjective HPI Comments: Fingers will cold and turn "purple." Also having excessive sweating for last 2 weeks. Working out a lot the last 2 months. 30 minutes a day. Diet has changes a bit- lots of fruits and veges although has really cut carbs. No medications to lose weight. Parents are concerned about her thyroid. She is unaccompanied. Excessive Sweating The duration has been 2 weeks. The onset has been acute. The course is unchanging. Primary Care Review of Systems Objective Vital Signs 11/27/20 0957 BP: 114/63 Pulse: 80 Temp: 36.6 C (97.8 F) TempSrc: Temporal Weight: 73 kg There is no height or weight on file to calculate BMI. Physical Exam Constitutional: She appears well. She is active. No distress. HENT: Head: Atraumatic. Ears: Right Ear: Tympanic membrane normal. Left Ear: Tympanic membrane normal. Mouth/Throat: Mucous membranes are moist. Eyes: Conjunctivae are normal. Cardiovascular: Normal rate and regular rhythm. Heart murmur not heard. Pulmonary/Chest: Breath sounds normal. There is normal air entry. Abdominal: She exhibits no distension. There is no hepatosplenomegaly. There is no abdominal tenderness. Neurological: She is alert. Normal [facility] 2019 Novel Coronavirus (COVI D-19), TARYN ([id number])Ordered By: Metal Mixer on 08-07-2020 2019 Novel Coronavirus (COVID-19), TARYN ([id number]) Not Detected Normal [facility] Work Phone: Comment on above: This nucleic acid am plification test was developed and its performancecharacteristics determined by [employer]. Nucleic acidamplification tests include PCR and TMA. This test has not been FDAcleared or approved. This test has been authorized by FDA under anEmergency Use Authorization (EUA). This test is only authorized forthe duration of time the declaration that circumstances existjustifying the authorization of the emergency use of in vitrodiagnostic tests for detection of SARS-CoV-2 virus and/or diagnosisof COVID-19 infection under section 564(b)(1) of the Act, 21 U.S.C.360bbb-3(b) (1), unless the authorization is terminated or revokedsooner.When diagnostic testing is negative, the possibility of a falsenegative result should be considered in the context of a patient'srecent exposures and the presence of clinical signs and symptomsconsistent with COVID-19. An individual without symptoms of COVID-19and who is not shedding SARS-CoV-2 virus would expect to have anegative (not detected) result in this assay. PATIENT NOT FASTINGP ERFORMED BY: STAN [facility] [id number] [facility] [id number] 2018 Novel Coronavirus (COVID-19), TARYN ([id number]) Not detected Normal [facility]; [facility] Work Phone: Comment on above: This nucleic acid am plification test was developed and its performancecharacteristics determined by [employer]. Nucleic acidamplification tests include PCR and TMA. This test has not been FDAcleared or approved. This test has been authorized by FDA under anEmergency Use Authorization (EUA). This test is only authorized forthe duration of time the declaration that circumstances existjustifying the authorization of the emergency use of in vitrodiagnostic tests for detection of SARS-CoV-2 virus and/or diagnosisof COVID-19 infection under section 564(b)(1) of the Act, 21 U.S.C.360bbb-3(b) (1), unless the authorization is terminated or revokedsooner.When diagnostic testing is negative, the possibility of a falsenegative result should be considered in the context of a patient'srecent exposures and the presence of clinical signs and symptomsconsistent with COVID-19. An individual without symptoms of COVID-19and who is not shedding SARS-CoV-2 virus would expect to have anegative (not detected) result in this assay. PATIENT NOT FASTINGP ERFORMED BY: [facility] [id number] [facility] DriveR[facility] [id number] Progress Noteon 06-29-2020 Psychiatric Therapist Authentication Interface Message Text Patient ID: Sirena Calhoun is a 15 y.o. female. Her chief complaint(s) include: 15 YEAR WELL CHILD Assessment 1. Encounter for routine child health examination without abnormal findings 2. Exercise counseling 3. Encounter for dietary counseling and surveillance 4. Adjustment disorder with depressed mood Plan Sirean was seen today for 15 year well child. Diagnoses and all orders for this visit: Encounter for routine child health examination without abnormal findings - PHQ9 Assessment With Score - Health Risk Assessment - CRAFFT Exercise counseling Encounter for dietary counseling and surveillance Adjustment disorder with depressed mood Return in about 1 year (around 06/29/2021) for well check. Reviewed progress with medication and counseling for depression. Discussed impact of genetics on addiction. Discussed patient doing well with school and reviewed future plans. Discussed good job with exercising. Subjective HPI Comments: Talking with Tori. Taking lexapro She is unaccompanied. 15 YEAR WELL CHILD Home: Sirena eats meals with family, has an adult to turn to for help and is permitted and able to make independent decisions. Education: Sirena is in 11th grade and is doing well, is doing well with homework, is meeting expectations and is getting along with peers. Eating: Sirena eats regular meals including fruits and vegetables, eats breakfast, limits fast food, drinks non-sweetened liquids and has a calcium source. Activities & Sports: Sirena has friends and performs at least 1 hour of physical activity daily. Drugs: Sirena does not use tobacco, does not use drugs, does not use alcohol and does not vape. Safety: Sirena has a violence free home, has peer relationships free from violence and uses seat belt. Sirena does not use phone/text while driving. Sex: The patient does not currently have a sexual partner. The patient is interested in males. The patient has had sex. Typically, the patient uses oral contraceptives and condoms as current contraceptive method. The patient has not had an STD. The patient's partner has had an STD: no. Menstruation Last Menstrual period: LMP from Vitals No LMP recorded.. Menstruation: regular periods and minimal cramping Output Urine and Stool Pattern: Urine and Stool Pattern: Normal stool pattern, normal urine pattern. Sleep Sleeping Difficulty: no difficulty sleeping Hours of sleep at a time: 9 Teen Anticipatory Guidance The following anticipatory guidance was reviewed during the visit: Nutrition: limit junk food/fast food and soft drinks. Safety: home safety. Social: avoid or limit screen time and bullying. Health: age appropriate dental care, avoid situations where drugs and alcohol are present, how to resist peer pressure to smoke, drink, use drugs, learn how to say 'no' to sex, recognize that sexual feelings are normal but delay having sex, ask questions if concerned about feelings for same or opposite sex, contraception/practice safe sex/ use condoms, puberty/sexual development/contraceptions/S TDs, talk with trusted adult if feeling sad or nervous and limit sun exposure/use sunscreen. Screenings Life events information was reviewed-no referral needed (patient and family in counseling. dad out of home) Hearing Vision Concerns: Patient wears glasses or contact lenses. The caregiver has no concerns about the patient's hearing. The caregiver has no concerns about the patient's vision. Vision and hearing screening done and passed at school per caregiver. Primary Care Review of Systems Objective Vital Signs 06/29/20 0917 BP: 110/67 Pulse: 79 Temp: 36.4 C (97.5 F) TempSrc: Temporal Weight: 71.2 kg Height: 165.1 cm Body mass index is 26.12 kg/m . Physical Exam Constitutional: She appears well. She is active. No distress. HENT: Head: Atraumatic. Ears: Right Ear: Tympanic membrane and external ear normal. Left Ear: Tympanic membrane and external ear normal. Nose: Nose normal. Mouth/Throat: Mucous membranes are moist. Dentition is normal. Oropharynx is clear. Eyes: Conjunctivae and EOM are normal. No strabismus. Pupils are equal, round, and reactive to light. Neck: Normal range of motion. Neck supple. Thyroid normal. Cardiovascular: Normal rate, regular rhythm, S1 normal and S2 normal. Pulses are palpable. Heart murmur not heard. Pulmonary/Chest: Breath sounds normal. No respiratory distress. Exhibits no deformity. Abdominal: Soft. Bowel sounds are normal. She exhibits no distension and no mass. There is no hepatosplenomegaly. There is no abdominal tenderness. Musculoskeletal: Normal range of motion. Back: She exhibits no scoliosis. Neurological: She is alert. She has normal strength. She exhibits normal muscle tone. Gait normal. Skin: Skin is warm and not pale. Findings: No rash. Vitals reviewed: Blood pressure 110/67, pulse 79, temperature 36.4 C (97.5 F), temperature source Temporal, height 165.1 cm, weight 71.2 kg. Sirena Calhoun is a 15 y.o. female patient. PHQ9 Assessment With Score Performed by: Odette Gray MD Authorized by: Odette Gray MD PHQ-9 See PHQ9 Flowsheet Feeling down, depressed, irritable or hopeless: Not at all Little interest or pleasure in doing things: Several days Trouble falling or staying sleep, or sleeping too much: Not at all Poor appetite, weight loss, or overeating: Several days Feeling tired or having little energy: Not at all Feeling bad about yourself - or feeling that you are a failure, or have let yourself or your family down: Several days Trouble concentrating on things, like school work, reading or watching TV: Not at all Moving or speaking so slowly that other people could have noticed. Or the opposite - being so fidgety or restless that you were moving around a lot more than usual: Not at all Thoughts that you would be better off , or of hurting yourself in some way: Not at all In the past year have you felt depressed or sad most days, even if you felt OK sometimes?: Yes If you are experiencing any of the problems on this form, how difficult have these problems made it for you to do your work, take care of things at home or get along with other people?: Somewhat difficult Has there been a time in the past month when you have had serious thoughts about ending your life?: No Have you ever, in your whole life, tried to kill yourself or made a suicide attempt?: No PHQ-9 Total Score: 3 Health Risk Assessment - CRAFFT Authorized by: Odette Gray MD [facility] Results: 1. Drink more than a few sips of beer, wine, or any drink containing alcohol? Put "0" if none.: 0 2. Use any marijuana (weed, oil, or hash by smoking, vaping, or in food) or "synthetic marijuana" (like "K2," "Spice")? Put "0" if none.: 0 3. Use anything else to get high (like other illegal drugs, prescription or xqly-kef-fyrnbve medications, and things that you sniff, rowan, or vape)? Put "0" if none.: 0 4. Use any tobacco or nicotine products (for example, cigarettes, e-cigarettes, hookahs or smokeless tobacco)?: 0 5. Have you ever ridden in a CAR driven by someone (including yourself) who was "high" or had been using alcohol or drugs?: No Electronically signed by: Odette Wilcox MD Normal [facility] LIPID PANEL ([id number])Ordered B y: Metal Mixer on 06-26-2020 Cholesterol [Mass/Vol] 163 mg/dL Normal 100-169 [facility] Work Phone: Comment on above: PATIENT WAS FASTINGP ERFORMED BY: Intrinsic-IDHealthSouth - Specialty Hospital of UnionIhtccd9930 [facility] [id number] Cholesterol in HDL [Mass/Vol] 55 mg/dL Normal [facility] Work Phone: Comment on above: PATIENT WAS FASTINGP ERFORMED BY: JENI LabN[facility] Edjrft4129 [facility] [id number] Cholesterol in LDL/Cholesterol in HDL [Mass ratio] 1.6 {ratio} Normal 0.0-3.2 [facility] Work Phone: Comment on above: LDL/HDL Ratio Men Wo men 1/2 Avg.Risk 1.0 1.5 Avg.Risk 3.6 3.2 2X Avg.Risk 6.2 5.0 3X Avg.Risk 8.0 6.1 PATIENT WAS FASTINGP ERFORMED BY: JENI Y-ClientsFormerly [facility] [id number] Triglyceride [Mass/Vol] 126 mg/dL Abnormal 0-89 [facility] Work Phone: Comment on above: PATIENT WAS FASTINGP ERFORMED BY: JENI Intrinsic-IDюлия ImnishFormerly [facility] [id number] LIPID PANEL ([id number]) 86 mg/dL Normal 0-109 [facility] Work Phone: Comment on above: PATIENT WAS FASTINGP ERFORMED BY: JENI Kiptronicox CodewarsFormerly [facility] [id number] LIPID PANEL ([id number]) 22 mg/dL Normal 5-40 [facility] Work Phone: Comment on above: PATIENT WAS FASTINGP ERFORMED BY: JENI Intrinsic-IDюлия Eqybef7015 [facility] [employer] SoftwareFormerly [facility] [id number] LIPID PANEL ([id number]) 1.6 {ratio} Normal 0.0-3.2 [facility]; [facility] Work Phone: Comment on above: LDL/HDL Ratio Men Wo men 1/2 Avg.Risk 1.0 1.5 Avg.Risk 3.6 3.2 2X Avg.Risk 6.2 5.0 3X Avg.Risk 8.0 6.1 PATIENT WAS FASTINGP ERFORMED BY: JENI [employer]70 [facility] Water[employer] SoftwareFormerly [facility] [id number] 2018 Novel Coronavirus (COVI D-19), TARYN ([id number])Ordered By: Metal Mixer on 02-19-2020 2019 Novel Coronavirus (COVID-19), TARYN ([id number]) Not Detected Normal [facility] Work Phone: Comment on above: This test was develo ped and its performance characteristics determinedby [employer]. This test has not been FDA cleared orapproved. This test has been authorized by FDA under an Emergency UseAuthorization (EUA). This test is only authorized for the duration oftime the declaration that circumstances exist justifying theauthorization of the emergency use of in vitro diagnostic tests fordetection of SARS-CoV-2 virus and/or diagnosis of COVID-19 infectionunder section 564(b)(1) of the Act, 21 U.S.C. 360bbb-3(b)(1), unlessthe authorization is terminated or revoked sooner.When diagnostic testing is negative, the possibility of a falsenegative result should be considered in the context of a patient'srecent exposures and the presence of clinical signs and symptomsconsistent with COVID-19. An individual without symptoms of COVID-19and who is not shedding SARS-CoV-2 virus would expect to have anegative (not detected) result in this assay. PATIENT NOT FASTINGP ERFORMED BY: [employer] Chirdtcuby0512 [employer] [facility] [place] [id number] 2018 Novel Coronavirus (COVID-19), TARYN ([id number]) Not detected Normal [facility]; [facility] Work Phone: Comment on above: This test was develo ped and its performance characteristics determinedby [employer]. This test has not been FDA cleared orapproved. This test has been authorized by FDA under an Emergency UseAuthorization (EUA). This test is only authorized for the duration oftime the declaration that circumstances exist justifying theauthorization of the emergency use of in vitro diagnostic tests fordetection of SARS-CoV-2 virus and/or diagnosis of COVID-19 infectionunder section 564(b)(1) of the Act, 21 U.S.C. 360bbb-3(b)(1), unlessthe authorization is terminated or revoked sooner.When diagnostic testing is negative, the possibility of a falsenegative result should be considered in the context of a patient'srecent exposures and the presence of clinical signs and symptomsconsistent with COVID-19. An individual without symptoms of COVID-19and who is not shedding SARS-CoV-2 virus would expect to have anegative (not detected) result in this assay. PATIENT NOT FASTINGP ERFORMED BY: [employer] Uaodnjucpk5207 [place] [id number] URINE AMY CULTURE-IDENTIFICA [place] ([id number])Ordered By: Metal Mixer on 08-27-2019 Bacteria identified Cx Nom (U) STASAP Abnormal [facility] Work Phone: Comment on above: Staphylococcus sapro phyticusGreater than 100,000 colony forming units per mLThe CLSI does not advise routine susceptibility testing of urinarytract isolates of Staphylococcus saprophyticus, because acute,uncomplicated urinary tract infections caused by this organism respondto concentrations achieved in urine of antimicrobial agents commonlyused to treat these infections, such as nitrofurantoin, afluoroquinolone, or trimethoprim with or without sulfamethoxazole.CLSI, M888-[id number], 2005. PATIENT NOT FASTINGP ERFORMED BY: [employer] Vbmdis7963 [facility] [id number] Information: SRC:UC Bacteria identified Cx Nom (U) Final report Abnormal [facility] Work Phone: Comment on above: PATIENT NOT FASTINGP ERFORMED BY: [facility] Hifdft7223 [facility] [id number] Information: SRC:UC CALCIFEDIOL ([id number])Ordered B y: Metal Mixer on 07-30-2019 25-Hydroxyvitamin D2+25-Hydroxyvitam in D3 [Mass/Vol] 36.1 ng/mL Normal 30.0-100.0 [facility] Work Phone: Comment on above: Vitamin D deficiency has been defined by the [place] ofMedicine and an Endocrine Society practice guideline as alevel of serum 25-OH vitamin D less than 20 ng/mL (1,2).The Endocrine Society went on to further define vitamin Dinsufficiency as a level between 21 and 29 ng/mL (2).1. IOM ([place] of Medicine). 2010. Dietary reference intakes for calcium and D. [place]: The National Academies Press.2. Ivy PARK, Chadd HUERTAS, Betsy ALEJANDRO, et al. Evaluation, treatment, and prevention of vitamin D deficiency: an Endocrine Society clinical practice guideline. JCEM. 2010; 96(7):1911-30. PATIENT WAS FASTINGP ERFORMED BY: [facility] Lvgcdu4333 [facility] [place] [id number] CBC WITH MANUAL DIFF ([id number]) Ordered By: Metal Mixer on 07-30-2019 Basophils (Bld) [#/Vol] 0.0 {x10E3/uL} Normal 0.0-0.3 [facility] Work Phone: Comment on above: PATIENT WAS FASTINGP ERFORMED BY: Lab[facility] Hdbaqb4444 Wolf Roadblin [place] [id number] Basophils (Bld) [#/Vol] 0.0 10*3/uL Normal 0.0-0.3 [facility]; [facility] Work Phone: Comment on above: PATIENT WAS FASTINGP ERFORMED BY: [facility] RoadFormerly [facility] [place] [id number] Basophils/100 WBC (Bld) 1 % Normal [facility] Work Phone: Comment on above: PATIENT WAS FASTINGP ERFORMED BY: [facility] [facility] [place] [id number] Eosinophils (Bld) [#/Vol] 0.3 {x10E3/uL} Normal 0.0-0.4 [facility] Work Phone: Comment on above: PATIENT WAS FASTINGP ERFORMED BY: [facility] [facility] [place] [id number] Eosinophils (Bld) [#/Vol] 0.3 10*3/uL Normal 0.0-0.4 [facility]; [facility] Work Phone: Comment on above: PATIENT WAS FASTINGP ERFORMED BY: [facility] Heuifb4145 [facility] [place] [id number] Eosinophils/100 WBC (Bld) 8 % Normal [facility] Work Phone: Comment on above: PATIENT WAS FASTINGP ERFORMED BY: [facility] [facility] [id number] Erythrocyte distribution width (RBC) [Ratio] 14.3 % Normal 12.3-15.4 [facility] Work Phone: Comment on above: PATIENT WAS FASTINGP ERFORMED BY: [facility] Nhlqqu3479 [address] [facility] [id number] Hematocrit (Bld) [Volume fraction] 38.4 % Normal 34.0-46.6 [facility] Work Phone: Comment on above: PATIENT WAS FASTINGP ERFORMED BY: [facility]6370 [address] [facility] [id number] Hemoglobin (Bld) [Mass/Vol] 12.8 g/dL Normal 11.1-15.9 [facility] Work Phone: Comment on above: PATIENT WAS FASTINGP ERFORMED BY: [facility]6[address] [facility] [id number] Immature granulocytes (Bld) [#/Vol] 0.0 {x10E3/uL} Normal 0.0-0.1 [facility] Work Phone: Comment on above: PATIENT WAS FASTINGP ERFORMED BY: [facility]6370 [address] [facility] [id number] Immature granulocytes (Bld) [#/Vol] 0.0 10*3/uL Normal 0.0-0.1 [facility]; [facility] Work Phone: Comment on above: PATIENT WAS FASTINGP ERFORMED BY: [facility]6[address] [facility] [id number] Immature granulocytes/100 WBC (Bld) 0 % Normal [facility] Work Phone: Comment on above: PATIENT WAS FASTINGP ERFORMED BY: [facility]6[address] [facility] [id number] Lymphocytes (Bld) [#/Vol] 1.5 {x10E3/uL} Normal 0.7-3.1 [facility] Work Phone: Comment on above: PATIENT WAS FASTINGP ERFORMED BY: JENI [facility]6370 [facility] [id number] Lymphocytes (Bld) [#/Vol] 1.5 10*3/uL Normal 0.7-3.1 [facility]; [facility] Work Phone: Comment on above: PATIENT WAS FASTINGP ERFORMED BY: [facility] Xygsfk7287 [facility] [id number] Lymphocytes/100 WBC (Bld) 40 % Normal [facility] Work Phone: Comment on above: PATIENT WAS FASTINGP ERFORMED BY: [facility] Zfkonz2874 [facility] [id number] MCH (RBC) [Entitic mass] 25.9 pg Abnormal 26.6-33.0 [facility] Work Phone: Comment on above: PATIENT WAS FASTINGP ERFORMED BY: LabKevin [place] 2407170 [facility] [id number] MCHC (RBC) [Mass/Vol] 33.3 g/dL Normal 31.5-35.7 [facility] Work Phone: Comment on above: PATIENT WAS FASTINGP ERFORMED BY: [facility] Ixkebd8867 [facility] [id number] MCV (RBC) [Entitic vol] 78 fL Abnormal 79-97 [facility] Work Phone: Comment on above: PATIENT WAS FASTINGP ERFORMED BY: [facility]6370 [facility] [id number] Monocytes (Bld) [#/Vol] 0.4 {x10E3/uL} Normal 0.1-0.9 [facility] Work Phone: Comment on above: PATIENT WAS FASTINGP ERFORMED BY: [facility]6370 [facility] [id number] Monocytes (Bld) [#/Vol] 0.4 10*3/uL Normal 0.1-0.9 [facility]; [facility] Work Phone: Comment on above: PATIENT WAS FASTINGP ERFORMED BY: JENI LabCoюлия Cclfid8226 Wolf RoadDublin [place] [id number] Monocytes/100 WBC (Bld) 10 % Normal [facility] Work Phone: Comment on above: PATIENT WAS FASTINGP ERFORMED BY: JENI [facility] Ppqiuv1584 Wolf RoadDublin [place] [id number] Neutrophils (Bld) [#/Vol] 1.6 {x10E3/uL} Normal 1.4-7.0 [facility] Work Phone: Comment on above: PATIENT WAS FASTINGP ERFORMED BY: JENI [facility] Pjvpeu4931 Wolf RoadDublin [place] [id number] Neutrophils (Bld) [#/Vol] 1.6 10*3/uL Normal 1.4-7.0 [facility]; [facility] Internal Medicine Work Phone: Comment on above: PATIENT WAS FASTINGP ERFORMED BY: JENI LabCo Evdlxi0381 Wolf RoadDublin [place] [id number] Neutrophils/100 WBC (Bld) 41 % Normal [facility] Work Phone: Comment on above: PATIENT WAS FASTINGP ERFORMED BY: JENI LabCoюлия MartinEkdimk1711 [address] RoadDublin [place] [id number] Platelets (Bld) [#/Vol] 218 {x10E3/uL} Normal 150-450 [facility] Work Phone: Comment on above: PATIENT WAS FASTINGP ERFORMED BY: CB [facility] Qrpwjb6789 Wolf RoadDublin [place] [id number] Platelets (Bld) [#/Vol] 218 10*3/uL Normal 150-450 [facility]; [facility] Internal Medicine Work Phone: Comment on above: PATIENT WAS FASTINGP ERFORMED BY: CB [facility] Hgvvre9948 Wolf RoadDublin [place] [id number] RBC (Bld) [#/Vol] 4.95 {x10E6/uL} Normal 3.77-5.[address] [facility] Internal Medicine Work Phone: Comment on above: PATIENT WAS FASTINGP ERFORMED BY: [facility]6370 [facility] [id number] RBC (Bld) [#/Vol] 4.95 10*6/uL Normal 3.77-5.28 [facility] Cent[facility]; [facility] Work Phone: Comment on above: PATIENT WAS FASTINGP ERFORMED BY: [facility]6370 [facility] [id number] WBC (Bld) [#/Vol] 3.8 {x10E3/uL} Normal 3.4-10.8 [facility] Work Phone: Comment on above: PATIENT WAS FASTINGP ERFORMED BY: [facility]6370 [facility] [id number] WBC (Bld) [#/Vol] 3.8 10*3/uL Normal 3.4-10.[address] [facility] Internal Medicine; [facility] Work Phone: Comment on above: PATIENT WAS FASTINGP ERFORMED BY: [facility]6370 [facility] [id number] EBV Panel ([id number])Ordered By: Metal Mixer on 07-30-2019 EBV capsid IgG IA Qn (S) 77.5 U/mL Abnormal 0.0-17.9 [facility] Work Phone: Comment on above: Negative <18.0 Equiv ocal 18.0 - 21.9 Positive >21.9 PATIENT WAS FASTINGP ERFORMED BY: [facility]6370 [facility] [id number] EBV capsid IgM IA Qn (S) 67.9 U/mL Abnormal 0.0-35.9 [facility] Work Phone: Comment on above: Negative <36.0 Equiv ocal 36.0 - 43.9 Positive >43.9 PATIENT WAS FASTINGP ERFORMED BY: [facility]6370 [facility] [id number] EBV early IgG Qn (S) 39.4 U/mL Abnormal 0.0-8.9 [facility] Work Phone: Comment on above: Hepatitis A, Hepatit is C and HIV antibodies may cross- reactwith this assay. Negative < 9.0 Equivocal 9.0 - 10.9 Positive >10.9 PATIENT WAS FASTINGP ERFORMED BY: JENI Intrinsic-ID Fmvvyj7304 [address] [employer] SoftwareFormerly [facility] [id number] EBV nuclear IgG IA Qn (S) <18.0 Normal 0.0-17.9 [facility] Work Phone: Comment on above: Negative <18.0 Equiv ocal 18.0 - 21.9 Positive >21.9 PATIENT WAS FASTINGP ERFORMED BY: JENI [employer] WolfiPharro MediaFormerly [facility] [id number] Service comment (Unsp spec) [Interp] SPRCS Normal [facility] Work Phone: Comment on above: EBV Interpretation C drake . Interpretation EBV-IgM EA(D)-IgG VCA-IgG EBNA-IgG . EBV Seronegative - - - - Early Phase + - - - Acute Primary + +or- + - Infection Convalescence/Past - +or- + + Infection Reactivated +or- +or- + + Infection + Antibody Present - Antibody Absent PATIENT WAS FASTINGP ERFORMED BY: JENI Intrinsic-IDюлия Zshgfu8245 [facility] [id number] LIPID PANEL ([id number])Ordered B y: Metal Mixer on 07-30-2019 Cholesterol [Mass/Vol] 174 mg/dL Abnormal 100-169 [facility] Work Phone: Comment on above: PATIENT WAS FASTINGP ERFORMED BY: JENI Intrinsic-ID Vakhyv5358 [address] [employer] SoftwareFormerly [facility] [id number] Cholesterol in HDL [Mass/Vol] 43 mg/dL Normal [facility] Work Phone: Comment on above: PATIENT WAS FASTINGP ERFORMED BY: JENI Intrinsic-ID Bqhchx6540 [facility] [id number] Cholesterol in LDL [Mass/Vol] 111 mg/dL Abnormal 0-109 [facility] Work Phone: Comment on above: PATIENT WAS FASTINGP ERFORMED BY: JENI Intrinsic-ID Eqwnyh0076 Wolf RoadDublin [place] [id number] Cholesterol in LDL/Cholesterol in HDL [Mass ratio] 2.6 {ratio} Normal 0.0-3.2 [facility] Work Phone: Comment on above: LDL/HDL Ratio Men Wo men 1/2 Avg.Risk 1.0 1.5 Avg.Risk 3.6 3.2 2X Avg.Risk 6.2 5.0 3X Avg.Risk 8.0 6.1 PATIENT WAS FASTINGP ERFORMED BY: JENI LabMichelle MartinJksldo8557 Wolf RoadDublin [place] [id number] Cholesterol in VLDL [Mass/Vol] 20 mg/dL Normal 5-40 [facility] Work Phone: Comment on above: PATIENT WAS FASTINGP ERFORMED BY: JENI LabMichelle MartinTyvjkw2002 [address] WaterSmart SoftwareDublin [place] [id number] Triglyceride [Mass/Vol] 101 mg/dL Abnormal 0-89 [facility] Work Phone: Comment on above: PATIENT WAS FASTINGP ERFORMED BY: JENI LabCoюлия Yeousv3342 [address] WaterSmart SoftwareDublin [place] [id number] Metabolic Panel, Comprehensi ve ([id number])Ordered By: Metal Mixer on 07-30-2019 Albumin [Mass/Vol] 4.2 g/dL Normal 3.5-5.[address] [facility] Internal Medicine Work Phone: Comment on above: PATIENT WAS FASTINGP ERFORMED BY: JENI LabCoюлия Unrsqw7436 [address] WaterSmart Softwareblin [place] [id number] Albumin/Globulin [Mass ratio] 1.8 {ratio} Normal 1.2-2.2 [facility] Work Phone: Comment on above: PATIENT WAS FASTINGP ERFORMED BY: JENI [facility] Tstizp3912 Wolf [facility] HospitalDublin [place] [id number] ALP [Catalytic activity/Vol] 60 [iU]/L Normal 49-108 [facility] Work Phone: Comment on above: PATIENT WAS FASTINGP ERFORMED BY: JENI [facility] Ygfxnx8396 [address] WaterSmart SoftwareDublin [place] [id number] ALP [Catalytic activity/Vol] 60 U/L Normal 49-108 [facility]; [facility] Work Phone: Comment on above: PATIENT WAS FASTINGP ERFORMED BY: [facility] Zqnnzh5905 [address] RoadDublin [place] [id number] ALT [Catalytic activity/Vol] 12 [iU]/L Normal 0-24 [facility] Work Phone: Comment on above: PATIENT WAS FASTINGP ERFORMED BY: [facility] Oxaqyl2207 [address] RoadDublin [place] [id number] ALT [Catalytic activity/Vol] 12 U/L Normal 0-24 [facility]; [facility] Work Phone: Comment on above: PATIENT WAS FASTINGP ERFORMED BY: LabCo Xknwcg7741 Wolf RoadDublin [place] [id number] AST [Catalytic activity/Vol] 17 [iU]/L Normal 0-40 [facility] Work Phone: Comment on above: PATIENT WAS FASTINGP ERFORMED BY: LabCo Pwblju3767 [address] RoadDublin [place] [id number] AST [Catalytic activity/Vol] 17 U/L Normal 0-40 [facility]; [facility] Work Phone: Comment on above: PATIENT WAS FASTINGP ERFORMED BY: LabCo Zlnbit0709 [address] RoadDublin [place] [id number] Bilirubin [Mass/Vol] 0.2 mg/dL Normal 0.0-1.2 [facility] Work Phone: Comment on above: PATIENT WAS FASTINGP ERFORMED BY: [facility] Wfbvlu3606 Wolf RoadDublin [place] [id number] Calcium [Mass/Vol] 9.1 mg/dL Normal 8.9-10.[address] [facility] Internal Medicine Work Phone: Comment on above: PATIENT WAS FASTINGP ERFORMED BY: [facility] Jymywj4995 [address] RoadDublin [place] [id number] Chloride [Moles/Vol] 107 mmol/L Abnormal 96-106 [facility] Work Phone: Comment on above: PATIENT WAS FASTINGP ERFORMED BY: LabCo Thrdda6108 [address] [facility]in [place] [id number] CO2 [Moles/Vol] 21 mmol/L Normal 20-29 [facility] Internal Medicine Work Phone: Comment on above: PATIENT WAS FASTINGP ERFORMED BY: [facility] Foycmr0514 [facility] [id number] Creatinine [Mass/Vol] 0.61 mg/dL Normal 0.57-1.00 [facility] Internal Medicine Work Phone: Comment on above: PATIENT WAS FASTINGP ERFORMED BY: LabCo Rnrtlj5680 [address] [facility] [id number] Globulin (S) [Mass/Vol] 2.4 g/dL Normal 1.5-4.5 [facility] Internal Medicine Work Phone: Comment on above: PATIENT WAS FASTINGP ERFORMED BY: [facility] Pknrvd4505 [facility] [id number] Glucose [Mass/Vol] 101 mg/dL Abnormal 65-[address] [facility] Internal Medicine Work Phone: Comment on above: PATIENT WAS FASTINGP ERFORMED BY: [facility] Ckrzph7006 [facility] [id number] Potassium [Moles/Vol] 4.3 mmol/L Normal 3.5-5.2 [facility] Internal Medicine Work Phone: Comment on above: PATIENT WAS FASTINGP ERFORMED BY: [facility] Rivfqj5072 [facility] [id number] Protein [Mass/Vol] 6.6 g/dL Normal 6.0-8.[address] [facility] Internal Medicine Work Phone: Comment on above: PATIENT WAS FASTINGP ERFORMED BY: LabCo Fsbsbw3905 [facility] [id number] Sodium [Moles/Vol] 144 mmol/L Normal 134-[address] [facility] Internal Medicine Work Phone: Comment on above: PATIENT WAS FASTINGP ERFORMED BY: [facility] Qeliyg4533 Wolf [facility] HospitalDublin [place] [id number] Urea nitrogen [Mass/Vol] 7 mg/dL Normal 5-18 [facility] Work Phone: Comment on above: PATIENT WAS FASTINGP ERFORMED BY: [facility] Ttpjdi2820 Wolf RoadDublin [place] [id number] Urea nitrogen/Creatinin e [Mass ratio] 11 mg/mg Normal 10-22 [facility] Work Phone: Comment on above: PATIENT WAS FASTINGP ERFORMED BY: LabCo Jgcgtl3667 Wolf [facility] Hospitalblin [place] [id number] TSH ([id number])Ordered By: [employer] Housekeeper And Laundry Assistant on 07-30-2019 TSH Qn 1.250 {uIU/mL} Normal 0.450-4.50 0 [facility] Work Phone: Comment on above: PATIENT WAS FASTINGP ERFORMED BY: [facility] Zjkunb0284 Wlof [facility] [place] [id number] URINE AMY CULTURE-IDENTIFICA [place] ([id number])Ordered By: Metal Mixer on 01-15-2019 Bacteria identified Cx Nom (U) Final report Abnormal [facility] Work Phone: Comment on above: PATIENT NOT FASTINGP ERFORMED BY: [facility] Fgzzyi6003 [address] Roadblin [place] [id number] Information: SRC:UC Bacteria identified Cx Nom (U) MUG Normal [facility] Work Phone: Comment on above: Mixed urogenital adrrian ra10,000-25,000 colony forming units per mL S = Susceptible; I = Intermediate; R = Resistant P = Positive; N = Negative MICS are expressed in micrograms per mL Antibiotic RSLT#1 RSLT#2 RSLT#3 RSLT#4Amoxicillin/Clavulanic Acid SAmpicillin RCefepime SCeftriaxone SCefuroxime SCiprofloxacin SErtapenem SGentamicin SImipenem SLevofloxacin SMeropenem SNitrofurantoin SPiperacillin/Tazobactam STetracycline STobramycin STrimethoprim/Sulfa S PATIENT NOT FASTINGP ERFORMED BY: CB [facility] Nzynta8540 [address] WaterSmart SoftwareDublin [place] [id number] Information: SRC: Bacteria identified Cx Nom (U) Escherichia coli Abnormal [facility] Work Phone: Comment on above: Greater than 100,000 colony forming units per mLCefazolin <=4 ug/mLCefazolin with an FABIANO <=16 predicts susceptibility to the oral agentscefaclor, cefdinir, cefpodoxime, cefprozil, cefuroxime, cephalexin,and loracarbef when used for therapy of uncomplicated urinary tractinfections due to E. coli, Klebsiella pneumoniae, and Proteusmirabilis. PATIENT NOT FASTINGP ERFORMED BY: [facility] Ylnvjg3891 [address] Water[employer] SoftwareFormerly [facility] [id number] Information: SRC: CBC (Auto) ([id number])on 018 Erythrocyte distribution width Ratio (RBC) 13.5 % Normal 12.3-15.4 [facility] Work Phone: Comment on above: PATIENT NOT FASTINGP ERFORMED BY: [facility] Glpdjz3106 Wolf Codewarsst. jose[facility] [place] [id number] Hematocrit Volume Fraction (Bld) 42.3 % Normal 34.0-46.6 [facility] Work Phone: Comment on above: PATIENT NOT FASTINGP ERFORMED BY: [facility] Wowcfs0041 [address] [employer] SoftwareFormerly [facility]in [place] [id number] Hemoglobin mass conc (Bld) 13.6 g/dL Normal 11.1-15.9 [facility] Work Phone: Comment on above: PATIENT NOT FASTINGP ERFORMED BY: CB [facility] Gcqvtg9000 [address] WaterSmart SoftwareDublin [place] [id number] MCH Entitic mass (RBC) 27.6 pg Normal 26.6-33.0 [facility] Work Phone: Comment on above: PATIENT NOT FASTINGP ERFORMED BY: CB [facility] Vfxdir4681 [address] RoadDublin [place] [id number] MCHC mass conc (RBC) 32.2 g/dL Normal 31.5-35.7 [facility] Work Phone: Comment on above: PATIENT NOT FASTINGP ERFORMED BY: JENI Debbie Waddell6370 [address] [facility] Hospitalblin [place] [id number] MCV Entitic volume (RBC) 86 fL Normal 79-97 [facility] Work Phone: Comment on above: PATIENT NOT FASTINGP ERFORMED BY: JENI LabCoюлия Jkxdns1029 [address] RoadDublin [place] [id number] Platelets #/vol (Bld) 318 {x10E3/uL} Normal 150-379 [facility] Work Phone: Comment on above: PATIENT NOT FASTINGP ERFORMED BY: JENI MaryMichelle MartinRyxgqn1909 [address] RoadDublin [place] [id number] RBC #/vol (Bld) 4.92 {x10E6/uL} Normal 3.77-5.28 [facility] Internal Medicine Work Phone: Comment on above: PATIENT NOT FASTINGP ERFORMED BY: JENI MaryCoюлия WaddellLwthsc3303 [address] RoadDublin [place] [id number] WBC #/vol (Bld) 7.0 {x10E3/uL} Normal 3.4-10.8 [facility] Internal Medicine Work Phone: Comment on above: PATIENT NOT FASTINGP ERFORMED BY: JENI LabMichelle MartinIcoagl3073 [address] RoadDublin [place] [id number] CBC (Auto) ([id number])Ordered By : Metal Mixer on 08-27-2018 Platelets (Bld) [#/Vol] 318 10*3/uL Normal 150-379 [facility]; [facility] Work Phone: Comment on above: PATIENT NOT FASTINGP ERFORMED BY: JENI [facility] Dkmclk1353 [address] RoadDublin [place] [id number] RBC (Bld) [#/Vol] 4.92 10*6/uL Normal 3.77-5.28 Compr ensive Internal Medicine; [facility] Work Phone: Comment on above: PATIENT NOT FASTINGP ERFORMED BY: JENI Martinlin6370 [facility] [id number] WBC (Bld) [#/Vol] 7.0 10*3/uL Normal 3.4-10.[address] [facility] Internal Medicine; [facility] Work Phone: Comment on above: PATIENT NOT FASTINGP ERFORMED BY: JENI Martinlin6370 [facility] [id number] Metabolic Panel, Comprehensi ve ([id number])on 08-27-2018 Albumin mass conc 5.0 g/dL Normal 3.5-5.5 Compreh [facility] Internal Medicine Work Phone: Comment on above: PATIENT NOT FASTINGP ERFORMED BY: JENI Waddell6370 [facility] [id number] Albumin/Globulin mass ratio 1.9 {ratio} Normal 1.2-2.2 [facility] Work Phone: Comment on above: PATIENT NOT FASTINGP ERFORMED BY: JENI Martinlin6370 [facility] [id number] ALP enzyme act/vol 83 [iU]/L Normal 54-[address] [facility] Internal Medicine Work Phone: Comment on above: PATIENT NOT FASTINGP ERFORMED BY: JENI Martinlin6370 [facility] [id number] ALT enzyme act/vol 14 [iU]/L Normal 0-[address] [facility] Internal Medicine Work Phone: Comment on above: PATIENT NOT FASTINGP ERFORMED BY: JENI Martinlin6370 [facility] [id number] AST enzyme act/vol 21 [iU]/L Normal 0-[address] [facility] Internal Medicine Work Phone: Comment on above: PATIENT NOT FASTINGP ERFORMED BY: JENI Martinlin6370 [facility] [id number] Bilirubin mass conc 0.3 mg/dL Normal 0.0-1.2 [facility] Work Phone: Comment on above: PATIENT NOT FASTINGP ERFORMED BY: CB [facility] Usiumz1189 [address] RoadDublin [place] [id number] Calcium mass conc 9.5 mg/dL Normal 8.9-10.4 Compreh ensive Internal Medicine Work Phone: Comment on above: PATIENT NOT FASTINGP ERFORMED BY: JENI [facility] Txotaq4215 [address] RoadDublin [place] [id number] Chloride molar conc 103 mmol/L Normal 96-106 [facility] Work Phone: Comment on above: PATIENT NOT FASTINGP ERFORMED BY: CB [facility] Suzred2395 [address] RoadDublin [place] [id number] CO2 molar conc 23 mmol/L Normal 20-29 Comprehens jeffrey Internal Medicine Work Phone: Comment on above: PATIENT NOT FASTINGP ERFORMED BY: JENI [facility] Gzimxn9428 [address] RoadDublin [place] [id number] Creatinine mass conc 0.64 mg/dL Normal 0.57-1.00 [facility] Work Phone: Comment on above: PATIENT NOT FASTINGP ERFORMED BY: JENI [facility] Alfarx9971 [address] RoadDublin [place] [id number] Globulin mass conc (S) 2.6 g/dL Normal 1.5-4.5 [facility] Work Phone: Comment on above: PATIENT NOT FASTINGP ERFORMED BY: [facility] Lbqxjm1833 [address] RoadDublin [place] [id number] Glucose mass conc 82 mg/dL Normal 65-99 Compreh ensive Internal Medicine Work Phone: Comment on above: PATIENT NOT FASTINGP ERFORMED BY: CB [facility] Mgsswk7091 [address] RoadDublin [place] [id number] Potassium molar conc 4.1 mmol/L Normal 3.5-5.2 [facility] Work Phone: Comment on above: PATIENT NOT FASTINGP ERFORMED BY: CB [facility] Qkaukk0156 [address] RoadDublin [place] [id number] Protein mass conc 7.6 g/dL Normal 6.0-8.5 Compreh ensive Internal Medicine Work Phone: Comment on above: PATIENT NOT FASTINGP ERFORMED BY: JENI LabMichelle Waddell6370 [address] RoadFormerly [facility]in [place] [id number] Sodium molar conc 143 mmol/L Normal 134-144 Compreh ensive Internal Medicine Work Phone: Comment on above: PATIENT NOT FASTINGP ERFORMED BY: JENI LabMichelle MartinUxhzyg6175 [address] RoadFormerly [facility] [id number] Urea nitrogen mass conc 9 mg/dL Normal 5-18 [facility] Work Phone: Comment on above: PATIENT NOT FASTINGP ERFORMED BY: JENI LabCoюлия MartinUprfgq6044 [address] RoadFormerly [facility] Centerin [place] [id number] Urea nitrogen/Creatinin e mass ratio 14 mg/mg Normal 10- [facility] Work Phone: Comment on above: PATIENT NOT FASTINGP ERFORMED BY: JENI LabMichelle MartinOlgskk9212 [address] [facility] [id number] Metabolic Panel, Comprehensi ve ([id number])Ordered By: Metal Mixer on 08-27-2018 ALP [Catalytic activity/Vol] 83 U/L Normal 54-121 [facility]; [facility] Work Phone: Comment on above: PATIENT NOT FASTINGP ERFORMED BY: JENI Martinlin6370 [address] [facility] [place] [id number] ALT [Catalytic activity/Vol] 14 U/L Normal 0-24 [facility]; [facility] Work Phone: Comment on above: PATIENT NOT FASTINGP ERFORMED BY: JENI [facility] Cmygxs0791 [address] [facility] [place] [id number] AST [Catalytic activity/Vol] 21 U/L Normal 0-40 [facility]; [facility] Work Phone: Comment on above: PATIENT NOT FASTINGP ERFORMED BY: JENI [facility] Plhzsd6605 [address] [facility] [place] [id number] T3, FREE (TRIDOTHYRONINE) (3 6360)on 08-27-2018 T3 free mass conc 3.3 pg/mL Normal 2.3-5.0 Compreh ensive Internal Medicine Work Phone: Comment on above: PATIENT NOT FASTINGP ERFORMED BY: JENI [facility] Qvzwvj6453 [address] RoadDublin [place] [id number] T4, FREE (THYROXINE) ([id number]) on 08-27-2018 T4 free mass conc 1.32 ng/dL Normal 0.93-1.60 Compreh ensive Internal Medicine Work Phone: Comment on above: PATIENT NOT FASTINGP ERFORMED BY: CB [facility] Uauomv7226 [address] RoadDublin [place] [id number] TSH (41005)on 08-27-2018 Thyrotropin Qn 1.570 {uIU/mL} Normal 0.450-4.50 0 [facility] Work Phone: Comment on above: PATIENT NOT FASTINGP ERFORMED BY: JENI [facility] Wlopdp8872 [address] [facility] [id number] Vitamin D, 25-Hydroxyon 08-18 25-Hydroxyvitamin D2+25-Hydroxyvitam in D3 mass conc 33.1 ng/mL Normal 30.0-100.0 [facility] Work Phone: Comment on above: Vitamin D deficiency has been defined by the [place] [facility] and an Endocrine Society practice guideline as alevel of serum 25-OH vitamin D less than 20 ng/mL (1,2).The Endocrine Society went on to further define vitamin Dinsufficiency as a level between 21 and 29 ng/mL (2).1. IOM ([place] of Medicine). 2010. Dietary reference intakes for calcium and D. Colon [place]: The National Academies Press.2. Ivy MF, Chadd NC, Betsy ALEJANDRO, et al. Evaluation, treatment, and prevention of vitamin D deficiency: an Endocrine Society clinical practice guideline. JCEM. 2010; 96(7):1911-30. PATIENT NOT FASTINGP ERFORMED BY: JENI [facility] Wukery4940 [facility] [place] [id number] Throat Culture (37003)on Bacteria identified Respiratory culture Nom (Unsp spec) Final report Normal [facility] Work Phone: Comment on above: PATIENT NOT FASTINGP ERFORMED BY: JENI [facility] Gtvfoc2298 Wolf RoadDublin [place] [id number] Information: SRC:TH Bacteria identified Respiratory culture Nom (Unsp spec) RRF Normal [facility] Work Phone: Comment on above: Routine respiratory silevrio PATIENT NOT FASTINGP ERFORMED BY: CB [facility] Rkdduc5394 [address] [facility] [place] [id number] Information: SRC:TH C-REACTIVE PROTEIN (77699)on 11-20-2017 CRP mass conc 2.1 mg/L Normal 0.0-4.9 Comprehensi ve Internal Medicine Work Phone: Comment on above: PATIENT NOT FASTINGP ERFORMED BY: JENI [facility] Fvdfvo6971 [address] [facility] [place] [id number] CBC WITH MANUAL DIFF (14516) on 11-20-2017 Basophils #/vol (Bld) 0.0 {x10E3/uL} Normal 0.0-0.3 [facility] Work Phone: Comment on above: PATIENT NOT FASTINGP ERFORMED BY: CB [facility] Xicium9786 [address] RoadFormerly [facility] [place] [id number] Basophils/100 WBC (Bld) 0 % Normal [facility] Work Phone: Comment on above: PATIENT NOT FASTINGP ERFORMED BY: CB [facility] Zsnjpw6615 [address] Roadbl[address] [place] [id number] Eosinophils #/vol (Bld) 0.1 {x10E3/uL} Normal 0.0-0.4 [facility] Work Phone: Comment on above: PATIENT NOT FASTINGP ERFORMED BY: CB [facility] Vsattw2909 [address] RoadDublin [place] [id number] Eosinophils/100 WBC (Bld) 2 % Normal [facility] Work Phone: Comment on above: PATIENT NOT FASTINGP ERFORMED BY: CB [facility] Tvbxbd8603 [address] Roadbl[address] [place] [id number] Erythrocyte distribution width Ratio (RBC) 13.6 % Normal 12.3-15.4 [facility] Work Phone: Comment on above: PATIENT NOT FASTINGP ERFORMED BY: JENI [facility] Qdccuv9025 Wolf RoadFormerly [facility] [place] [id number] Hematocrit Volume Fraction (Bld) 38.3 % Normal 34.0-46.6 [facility] Work Phone: Comment on above: PATIENT NOT FASTINGP ERFORMED BY: JENI [facility] Aizkqd0174 Wolf RoadFormerly [facility] [place] [id number] Hemoglobin mass conc (Bld) 13.2 g/dL Normal 11.1-15.9 [facility] Work Phone: Comment on above: PATIENT NOT FASTINGP ERFORMED BY: JENI [facility] Msjodz8845 Wolf RoadFormerly [facility] [place] [id number] Immature granulocytes #/vol (Bld) 0.0 {x10E3/uL} Normal 0.0-0.1 [facility] Work Phone: Comment on above: PATIENT NOT FASTINGP ERFORMED BY: JENI [facility] Hotjqh6891 [facility] [id number] Immature granulocytes/100 WBC (Bld) 0 % Normal [facility] Work Phone: Comment on above: PATIENT NOT FASTINGP ERFORMED BY: JENI [facility] Zevikf4249 [address] [facility] [place] [id number] Lymphocytes #/vol (Bld) 1.6 {x10E3/uL} Normal 0.7-3.1 [facility] Work Phone: Comment on above: PATIENT NOT FASTINGP ERFORMED BY: JENI [facility] Opuaxp4338 [address] [facility] [place] [id number] Lymphocytes/100 WBC (Bld) 28 % Normal [facility] Work Phone: Comment on above: PATIENT NOT FASTINGP ERFORMED BY: JENI [facility] Acyyyn7400 [address] [facility] [place] [id number] MCH Entitic mass (RBC) 27.2 pg Normal 26.6-33.0 [facility] Work Phone: Comment on above: PATIENT NOT FASTINGP ERFORMED BY: JENI [facility] Abkmdz5075 [address] RoadDublin [place] [id number] MCHC mass conc (RBC) 34.5 g/dL Normal 31.5-35.7 [facility] Work Phone: Comment on above: PATIENT NOT FASTINGP ERFORMED BY: JENI [facility] Xhpmlv6210 [address] RoadDublin [place] [id number] MCV Entitic volume (RBC) 79 fL Normal 79-97 [facility] Work Phone: Comment on above: PATIENT NOT FASTINGP ERFORMED BY: JENI [facility] Xzbiuf3166 [address] RoadDublin [place] [id number] Monocytes #/vol (Bld) 0.6 {x10E3/uL} Normal 0.1-0.9 [facility] Work Phone: Comment on above: PATIENT NOT FASTINGP ERFORMED BY: JENI [facility] Kwswjc5800 [address] RoadDublin [place] [id number] Monocytes/100 WBC (Bld) 11 % Normal [facility] Work Phone: Comment on above: PATIENT NOT FASTINGP ERFORMED BY: JENI [facility] Mwhsvj9715 [address] RoadDublin [place] [id number] Neutrophils #/vol (Bld) 3.3 {x10E3/uL} Normal 1.4-7.0 [facility] Work Phone: Comment on above: PATIENT NOT FASTINGP ERFORMED BY: JENI [facility] Znwmds4513 [address] RoadFormerly [facility] [place] [id number] Neutrophils/100 WBC (Bld) 59 % Normal [facility] Work Phone: Comment on above: PATIENT NOT FASTINGP ERFORMED BY: CB [facility] Snzgws7687 [address] RoadDublin [place] [id number] Platelets #/vol (Bld) 261 {x10E3/uL} Normal 150-379 [facility] Work Phone: Comment on above: PATIENT NOT FASTINGP ERFORMED BY: JENI [facility] Zcjaol1811 [address] RoadDublin [place] [id number] RBC #/vol (Bld) 4.85 {x10E6/uL} Normal 3.77-5.28 [facility] Internal Medicine Work Phone: Comment on above: PATIENT NOT FASTINGP ERFORMED BY: JENI Lab[facility]юлия WaddellDncuvf3121 [address] [facility] [place] [id number] WBC #/vol (Bld) 5.6 {x10E3/uL} Normal 3.4-10.8 [facility] Internal Medicine Work Phone: Comment on above: PATIENT NOT FASTINGP ERFORMED BY: CB [facility] Cailoq0356 [facility] [id number] CBC WITH MANUAL DIFF ([id number]) Ordered By: [employer]er on 11-20-2017 Basophils (Bld) [#/Vol] 0.0 10*3/uL Normal 0.0-0.3 [facility]; [facility] Work Phone: Comment on above: PATIENT NOT FASTINGP ERFORMED BY: JENI [facility] Ptehcs0264 [facility] [id number] Eosinophils (Bld) [#/Vol] 0.1 10*3/uL Normal 0.0-0.4 [facility]; [facility] Work Phone: Comment on above: PATIENT NOT FASTINGP ERFORMED BY: JENI [facility] Hhswao3588 [facility] [id number] Immature granulocytes (Bld) [#/Vol] 0.0 10*3/uL Normal 0.0-0.1 [facility]; [facility] Work Phone: Comment on above: PATIENT NOT FASTINGP ERFORMED BY: CB [facility] Itrtul2107 [facility] [id number] Lymphocytes (Bld) [#/Vol] 1.6 10*3/uL Normal 0.7-3.1 [facility]; [facility] Work Phone: Comment on above: PATIENT NOT FASTINGP ERFORMED BY: [facility] Rblnzm3892 [facility] [id number] Monocytes (Bld) [#/Vol] 0.6 10*3/uL Normal 0.1-0.9 [facility]; [facility] Work Phone: Comment on above: PATIENT NOT FASTINGP ERFORMED BY: JENI Waddell6370 [address] [facility] [id number] Neutrophils (Bld) [#/Vol] 3.3 10*3/uL Normal 1.4-7.0 [facility]; [facility] Work Phone: Comment on above: PATIENT NOT FASTINGP ERFORMED BY: JENI Chi Fpqmmx6974 [facility] [id number] Platelets (Bld) [#/Vol] 261 10*3/uL Normal 150-379 [facility]; [facility] Work Phone: Comment on above: PATIENT NOT FASTINGP ERFORMED BY: JENI Martinlin6370 [facility] [id number] RBC (Bld) [#/Vol] 4.85 10*6/uL Normal 3.77-5.28 Compr [facility] Internal Medicine; [facility] Work Phone: Comment on above: PATIENT NOT FASTINGP ERFORMED BY: JENI Chi Uexpod0002 [facility] [id number] WBC (Bld) [#/Vol] 5.6 10*3/uL Normal 3.4-10.8 Compre [facility] Internal Medicine; [facility] Work Phone: Comment on above: PATIENT NOT FASTINGP ERFORMED BY: JENI Chi Wnuele7129 [facility] [id number] EBV Panel (40708)on 11-21-19 18 EBV capsid IgG IA Qn (S) <18.0 Normal 0.0-17.9 [facility] Work Phone: Comment on above: Negative <18.0 Equiv ocal 18.0 - 21.9 Positive >21.9 PATIENT NOT FASTINGP ERFORMED BY: JENI Chi Kenobx2607 [facility] [id number] EBV capsid IgM IA Qn (S) <36.0 Normal 0.0-35.9 [facility] Work Phone: Comment on above: Negative <36.0 Equiv ocal 36.0 - 43.9 Positive >43.9 PATIENT NOT FASTINGP ERFORMED BY: JENI Intrinsic-ID Svidte7886 [facility] [id number] EBV early IgG Qn (S) <9.0 Normal 0.0-8.9 [facility] Work Phone: Comment on above: Negative < 9.0 Equiv ocal 9.0 - 10.9 Positive >10.9 PATIENT NOT FASTINGP ERFORMED BY: Intrinsic-ID Wsyfzp8084 [facility] [id number] EBV nuclear IgG IA Qn (S) <18.0 Normal 0.0-17.9 [facility] Work Phone: Comment on above: Negative <18.0 Equiv ocal 18.0 - 21.9 Positive >21.9 PATIENT NOT FASTINGP ERFORMED BY: Intrinsic-ID Wqqehu7982 [facility] [id number] Service comment Interp (Unsp spec) SPRCS Normal [facility] Work Phone: Comment on above: EBV Interpretation Ruben drake . Interpretation EBV-IgM EA(D)-IgG VCA-IgG EBNA-IgG . EBV Seronegative - - - - Early Phase + - - - Acute Primary + +or- + - Infection Convalescence/Past - +or- + + Infection Reactivated +or- + + + Infection + Antibody Present - Antibody Absent PATIENT NOT FASTINGP ERFORMED BY: Intrinsic-ID Vnocbl9693 [facility] [id number] SED RATE ERYTHROCYTE (98908) on 11-20-2017 ESR Velocity (Bld) 3 mm/h Normal 0-32 Compre [facility] Internal Medicine Work Phone: Comment on above: PATIENT NOT FASTINGP ERFORMED BY: Intrinsic-ID Zlbbit7887 [facility] [id number] TSH (THYROID STIMULATING HOR CHAUNCEY) (98189)on 11-20-2017 Thyrotropin Qn 1.060 {uIU/mL} Normal 0.450-4.50 0 [facility] Work Phone: Comment on above: PATIENT NOT FASTINGP ERFORMED BY: JENI Debbie Waddell6370 [address] [facility] [id number] Throat Culture (36821)on Bacteria identified Respiratory culture Nom (Unsp spec) RRF Normal [facility] Work Phone: Comment on above: Routine respiratory silverio PATIENT NOT FASTINGP ERFORMED BY: JENI Artiюлия MartinJxnzox5403 [facility] [id number] Information: SRC:TH Bacteria identified Respiratory culture Nom (Unsp spec) Final report Normal [facility] Work Phone: Comment on above: PATIENT NOT FASTINGP ERFORMED BY: JENI Debbie Martinlin6370 [address] [facility] [id number] Information: SRC:TH Antinuclear Antibodies Direc ton 09-13-2017 Nuclear Ab Ql (S) Negative Normal Compreh ensive Internal Medicine Work Phone: Comment on above: PATIENT NOT FASTINGP ERFORMED BY: JENI Artiюлия Tkhdjp7004 [facility] [id number] C-Reactive Protein, Quanton 09-13-2017 CRP mass conc 0.3 mg/L Normal 0.0-4.9 Comprehensi ve Internal Medicine Work Phone: Comment on above: PATIENT NOT FASTINGP ERFORMED BY: JENI LabMichelle MartinAivqvr1254 [facility] [id number] CBC With Differential/Platel eton 09-13-2017 Basophils #/vol (Bld) 0.0 {x10E3/uL} Normal 0.0-0.3 [facility] Work Phone: Comment on above: PATIENT NOT FASTINGP ERFORMED BY: JENI LabCoюлия Lvczmv9957 [facility] [id number] Basophils/100 WBC (Bld) 0 % Normal [facility] Work Phone: Comment on above: PATIENT NOT FASTINGP ERFORMED BY: JENI LabCoюлия MartinZnarwe4875 [facility] [id number] Eosinophils #/vol (Bld) 0.2 {x10E3/uL} Normal 0.0-0.4 [facility] Work Phone: Comment on above: PATIENT NOT FASTINGP ERFORMED BY: JENI [facility] Zuwswz0339 [address] RoadDublin [place] [id number] Eosinophils/100 WBC (Bld) 2 % Normal [facility] Work Phone: Comment on above: PATIENT NOT FASTINGP ERFORMED BY: [facility] Hhqgxc2982 [facility] [place] [id number] Erythrocyte distribution width Ratio (RBC) 13.7 % Normal 12.3-15.4 [facility] Work Phone: Comment on above: PATIENT NOT FASTINGP ERFORMED BY: [facility] Waeclx8799 [facility] [id number] Hematocrit Volume Fraction (Bld) 44.9 % Normal 34.0-46.6 [facility] Work Phone: Comment on above: PATIENT NOT FASTINGP ERFORMED BY: Lab[facility] Pbzpup8924 [address] [facility] [place] [id number] Hemoglobin mass conc (Bld) 14.4 g/dL Normal 11.1-15.9 [facility] Work Phone: Comment on above: PATIENT NOT FASTINGP ERFORMED BY: [facility] Lsvawh9516 [facility] [id number] Immature granulocytes #/vol (Bld) 0.0 {x10E3/uL} Normal 0.0-0.1 [facility] Work Phone: Comment on above: PATIENT NOT FASTINGP ERFORMED BY: [facility] Qomjzg8294 [facility] [place] [id number] Immature granulocytes/100 WBC (Bld) 0 % Normal [facility] Work Phone: Comment on above: PATIENT NOT FASTINGP ERFORMED BY: [facility] Nkaodj8823 [address] RoadFormerly [facility] [place] [id number] Lymphocytes #/vol (Bld) 2.4 {x10E3/uL} Normal 0.7-3.1 [facility] Work Phone: Comment on above: PATIENT NOT FASTINGP ERFORMED BY: JENI Debbie Waddell6370 [address] [facility] [id number] Lymphocytes/100 WBC (Bld) 33 % Normal [facility] Work Phone: Comment on above: PATIENT NOT FASTINGP ERFORMED BY: JENI [facility] Ecybrb9600 [address] [facility] [id number] MCH Entitic mass (RBC) 26.5 pg Abnormal 26.6-33.0 [facility] Work Phone: Comment on above: PATIENT NOT FASTINGP ERFORMED BY: JENI LabCoюлия Qkjstb9908 [address] [facility] [id number] MCHC mass conc (RBC) 32.1 g/dL Normal 31.5-35.7 [facility] Work Phone: Comment on above: PATIENT NOT FASTINGP ERFORMED BY: JENI Debbie Ddqlfx0339 [facility] [id number] MCV Entitic volume (RBC) 83 fL Normal 79-97 [facility] Work Phone: Comment on above: PATIENT NOT FASTINGP ERFORMED BY: JENI Debbie Martinlin6370 [facility] [id number] Monocytes #/vol (Bld) 0.5 {x10E3/uL} Normal 0.1-0.9 [facility] Work Phone: Comment on above: PATIENT NOT FASTINGP ERFORMED BY: JENI [facility] Ktpdwa5091 [facility] [id number] Monocytes/100 WBC (Bld) 6 % Normal [facility] Work Phone: Comment on above: PATIENT NOT FASTINGP ERFORMED BY: JENI [facility] Ududze4257 [facility] [id number] Neutrophils #/vol (Bld) 4.3 {x10E3/uL} Normal 1.4-7.0 [facility] Work Phone: Comment on above: PATIENT NOT FASTINGP ERFORMED BY: CB [facility] Oczmta3367 [address] RoadD[address] [place] [id number] Neutrophils/100 WBC (Bld) 59 % Normal [facility] Work Phone: Comment on above: PATIENT NOT FASTINGP ERFORMED BY: CB [facility] Ceoxmk7165 [address] RoadD[address] [place] [id number] Platelets #/vol (Bld) 305 {x10E3/uL} Normal 150-379 [facility] Work Phone: Comment on above: PATIENT NOT FASTINGP ERFORMED BY: CB [facility] Rwnbcw9673 [address] RoadD[address] [place] [id number] RBC #/vol (Bld) 5.43 {x10E6/uL} Abnormal 3.77-5.28 Comp rehensive Internal Medicine Work Phone: Comment on above: PATIENT NOT FASTINGP ERFORMED BY: CB [facility] Wwavfj2577 [address] Road[address] [place] [id number] WBC #/vol (Bld) 7.4 {x10E3/uL} Normal 3.4-10.8 Compr ensive Internal Medicine Work Phone: Comment on above: PATIENT NOT FASTINGP ERFORMED BY: CB [facility] Hscyzd6653 [address] [place] [id number] Comp. Metabolic Panel (14)on 09-13-2017 Albumin mass conc 4.7 g/dL Normal 3.5-5.5 Compreh ensive Internal Medicine Work Phone: Comment on above: PATIENT NOT FASTINGP ERFORMED BY: CB [facility] Uejmdu6043 [address] RoadD[address] [place] [id number] Albumin/Globulin mass ratio 1.8 {ratio} Normal 1.2-2.2 [facility] Work Phone: Comment on above: PATIENT NOT FASTINGP ERFORMED BY: CB [facility] Mqgsnb5378 [address] RoadDublin [place] [id number] ALP enzyme act/vol 136 [iU]/L Normal 62-149 Compre hensive Internal Medicine Work Phone: Comment on above: PATIENT NOT FASTINGP ERFORMED BY: CB [facility] Jexasm1001 [address] RoadD[address] [place] [id number] ALT enzyme act/vol 9 [iU]/L Normal 0-[address] [facility] Internal Medicine Work Phone: Comment on above: PATIENT NOT FASTINGP ERFORMED BY: CB [facility] Zfrjnv0932 [address] RoadD[address] [place] [id number] AST enzyme act/vol 14 [iU]/L Normal 0-[address] [facility] Internal Medicine Work Phone: Comment on above: PATIENT NOT FASTINGP ERFORMED BY: CB [facility] Awiito0843 [address] RoadD[address] [place] [id number] Bilirubin mass conc 0.3 mg/dL Normal 0.0-1.2 [facility] Internal Medicine Work Phone: Comment on above: PATIENT NOT FASTINGP ERFORMED BY: JENI [facility] Uezedz3891 [address] RoadD[address] [place] [id number] Calcium mass conc 9.7 mg/dL Normal 8.9-10.4 Compreh [facility] Internal Medicine Work Phone: Comment on above: PATIENT NOT FASTINGP ERFORMED BY: CB [facility] Aucqor2886 [address] RoadDublin [place] [id number] Chloride molar conc 104 mmol/L Normal 96-106 [facility] Work Phone: Comment on above: PATIENT NOT FASTINGP ERFORMED BY: CB [facility] Yvxjmo7631 [address] RoadD[address] [place] [id number] CO2 molar conc 23 mmol/L Normal 18-29 Comprehens [facility] Internal Medicine Work Phone: Comment on above: PATIENT NOT FASTINGP ERFORMED BY: CB [facility] Kkyykx3595 [address] RoadD[address] [place] [id number] Creatinine mass conc 0.61 mg/dL Normal 0.49-0.90 [facility] Work Phone: Comment on above: PATIENT NOT FASTINGP ERFORMED BY: CB [facility] Wnfclv2184 [address] RoadD[address] [place] [id number] Globulin mass conc (S) 2.6 g/dL Normal 1.5-4.5 [facility] Work Phone: Comment on above: PATIENT NOT FASTINGP ERFORMED BY: JENI Waddell6370 [facility] [id number] Glucose mass conc 91 mg/dL Normal 65-99 Compreh ensive Internal Medicine Work Phone: Comment on above: PATIENT NOT FASTINGP ERFORMED BY: JENI Yang70 [facility] [id number] Potassium molar conc 4.0 mmol/L Normal 3.5-5.2 [facility] Work Phone: Comment on above: PATIENT NOT FASTINGP ERFORMED BY: JENI Waddell6370 [facility] [id number] Protein mass conc 7.3 g/dL Normal 6.0-8.5 Compreh ensive Internal Medicine Work Phone: Comment on above: PATIENT NOT FASTINGP ERFORMED BY: JENI Waddell6370 [facility] [id number] Sodium molar conc 143 mmol/L Normal 134-144 Compreh ensive Internal Medicine Work Phone: Comment on above: PATIENT NOT FASTINGP ERFORMED BY: JENI Waddell6370 [facility] [id number] Urea nitrogen mass conc 6 mg/dL Normal 5-18 [facility] Work Phone: Comment on above: PATIENT NOT FASTINGP ERFORMED BY: JENI Waddell6370 [facility] [id number] Urea nitrogen/Creatinin e mass ratio 10 mg/mg Normal 10-22 [facility] Work Phone: Comment on above: PATIENT NOT FASTINGP ERFORMED BY: JENI Waddell6370 [facility] [id number] [place] Qual W/Rflx Qnon 2016 Heterophile Ab LA Ql (S) Negative Normal [facility] Work Phone: Comment on above: The sensitivity of H eterophile antibody testing is 80- 90%.Melania Keenan IgM testing offers higher sensitivity. PATIENT NOT FASTINGP ERFORMED BY: CB [facility] Chsbjq4137 Wolf RoadImmure Recordsblin [place] [id number] Sedimentation Rate-Westergre non 09-13-2017 ESR Velocity (Bld) 4 mm/h Normal 0-32 Compre [facility] Internal Medicine Work Phone: Comment on above: PATIENT NOT FASTINGP ERFORMED BY: CB [facility] Eodgnt6146 [address] Road[address]ublin [place] [id number] TSHon 09-13-2017 Thyrotropin Qn 1.560 {uIU/mL} Normal 0.450-4.50 0 [facility] Work Phone: Comment on above: PATIENT NOT FASTINGP ERFORMED BY: CB [facility] Buetzb7099 [facility] [id number] Vitamin D, 25-Hydroxyon 08-19 25-Hydroxyvitamin D2+25-Hydroxyvitam in D3 mass conc 22.1 ng/mL Abnormal 30.0-100.0 [facility] Work Phone: Comment on above: Vitamin D deficiency has been defined by the [place] ofMedicine and an Endocrine Society practice guideline as alevel of serum 25-OH vitamin D less than 20 ng/mL (1,2).The Endocrine Society went on to further define vitamin Dinsufficiency as a level between 21 and 29 ng/mL (2).1. IOM ([place] of Medicine). 2010. Dietary reference intakes for calcium and D. Colon [place]: The National Academies Press.2. Ivy MF, Chadd NC, Betsy ALEJANDRO, et al. Evaluation, treatment, and prevention of vitamin D deficiency: an Endocrine Society clinical practice guideline. JCEM. 2010; 96(7):1911-30. PATIENT NOT FASTINGP ERFORMED BY: CB [facility] Qdeyyh4078 [address] [facility] [place] [id number] Culture, Throaton 09-09-2015 Bacteria identified Cx Nom (Throat) See Note Normal [facility] Work Phone: Comment on above: SOURCE IS THROAT PER OFFICE Copy of report sent to Infection Control Printer [id number] 09/11/15 1501 SUNDAY. Culture, ThroatNo Group A Beta Streptococcus isolated. # 1 Ampicillin can be used for Beta-Lactamase negative isolates. Trimeth/Sulfa, Chloramphenicol, Cefotaxime, Ciprofloxacin, Amoxicillin/Clavulanic Acid,and Oral 2nd/3rd Generation Cephlosporins are effective against both Beta-Lactamase positive and Beta-Lactamase negative isolates. ORGANISM 1: Haemophilus influenzaeAmount Growth 2+Beta Lactamase Negative [facility] Rtddoiooxx[address] [place], [address] HAND MIN 3 VIEWSon 3 HAND MIN 3 VIEWS See Note Normal Comprehe nsive Internal Medicine Work Phone: Comment on above: STUDY: X-RAY - LEFT HAND REASON FOR EXAM: Female, 7 years old. Injury to the fifth digit.Swelling. TECHNIQUE: 3 view(s) of the hand. COMPARISON: None. FINDINGS:Normal visualized carpal bones and carpal articulations. Normal carpometacarpal articulation of the thumb. Normal second throughfifth carpometacarpal joints. Normal metacarpi. Normal metacarpophalangeal (MCP) joints. Normalvisualized phalanges and interphalangeal joints. Soft tissue swelling. IMPRESSION:Soft tissue swelling. Signed:Shailesh Lane M.D.June 06, 2013 at 1:48:45 PM [phone] Signed GP/GP If you are the referring physician and would like to consult with theradiologist who provided this interpretation, please contact Chavo Lantigua at [phone]. If this radiologist is unavailable, youwill be directed to another radiologist to assist. If you are a patient with a question regarding this report, pleasecontactyour referring physician directly. Professional Interpretation Provided By: [employer], Phone , These documents contain legally protected and confidential healthinformation intended only for the use of the individual or entity namedabove. If you are not the intended recipient, you are hereby notifiedthatany disclosure, copying, distribution, or other use of these documents isstrictly prohibited. If you have received this information in error,pleasenotify the sender immediately and arrange for the return or destructionofthese documents. Dictated on 06/06/[address] MDribed on 06/06/13 1417 by ITS IMPORTSign by Shailesh Lane MD on 06/06/13 1418 Sign by: Shailesh Lane MD FINGER(S),MIN 2 VIEWSon 09-19 FINGER(S),MIN 2 VIEWS See Note Normal [facility] Work Phone: Comment on above: PROCEDURE: X-RAY - R IGHT HAND, ATTENTION FIFTH FINGER REASON FOR EXAM: Female, 7 years old. Pain following injury. TECHNIQUE: Three view(s) of the finger were obtained. COMPARISON: None. FINDINGS:Normal metacarpal head. Normal metacarpophalangeal joint. Normal proximal phalanx. Normal middle phalanx. Normal distal phalanx. Normal proximal interphalangeal joint. Normal distal interphalangealjoint. Soft tissue swelling. IMPRESSION:Soft tissue swelling. Signed:Shailesh Lane M.D.October 08, 2012 at 2:14:48 PM [id number] Signed GP/GP If you are the referring physician and would like to consult with theradiologist who provided this interpretation, please contact Chavo Lantigua at [phone]. If this radiologist is unavailable, youwill be directed to another radiologist to assist. If you are a patient with a question regarding this report, pleasecontactyour referring physician directly. Professional Interpretation Provided By: [employer], Phone , These documents contain legally protected and confidential healthinformation intended only for the use of the individual or entity namedabove. If you are not the intended recipient, you are hereby notifiedthatany disclosure, copying, distribution, or other use of these documents isstrictly prohibited. If you have received this information in error,pleasenotify the sender immediately and arrange for the return or destructionofthese documents. Dictated on 10/08/12 1348 by Domingo KHAN,PradipriSuzetteranscribed on 10/08/12 1534 by ITS IMPORTSign by Domingo KHAN,Shailesh on 10/08/12 15[address] Sign by: Shailesh Lane MD Urine Culture,[facility] n 08-04-2011 Bacteria identified Cx Nom (U) Final report Normal [facility] Work Phone: Comment on above: PERFORMED BY: [email or web address] [place] [id number] Information: SRC:UC Bacteria identified Cx Nom (U) [id number] Normal [facility] Work Phone: Comment on above: No growth in 36 - 48 hours. PERFORMED BY: [email or web address] [place] [id number] Information: SRC:UC Urine Culture,[facility] n 01-06-2011 Bacteria identified Cx Nom (U) MUG Normal [facility] Work Phone: Comment on above: Mixed urogenital darrian ra2,000 Colonies/mL PERFORMED BY: [email or web address] [place] [id number] Information: SRC:UR Bacteria identified Cx Nom (U) Final report Normal [facility] Work Phone: Comment on above: PERFORMED BY: [email or web address] [place] [id number] Information: SRC:UR Vital Signs Date Time Vital Sign Value Performing Clinician Facility 05-30-2025 08:040400 Body height 162.56 cm No Primary Care Physician [facility] 05-30-2025 08:04040 Body temperature 98.4 [degF] No Primary Care Physician [facility] 05-30-2025 08:04-0400 Diastolic blood pressure 72 mm[Hg] No Primary Care Physician [facility] 05-30-2025 08:04-0400 Heart rate 76 /min No Primary Care Physician [facility] 05-30-2025 08:04-0400 Respiratory rate 16 /min No Primary Care Physician [facility] 05-30-2025 08:04-0400 SaO2% (BldA) [Mass fraction] 96 % No Primary Care Physician [facility] 05-30-2025 08:04-0400 Systolic blood pressure 107 mm[Hg] No Primary Care Physician [facility] 05-09-2025 11:24-0400 Body temperature 98.7 [degF] No Primary Care Physician [facility] 05-09-2025 11:24-0400 Diastolic blood pressure 81 mm[Hg] No Primary Care Physician [facility] 05-09-2025 11:24-0400 Heart rate 76 /min No Primary Care Physician [facility] 05-09-2025 11:24-0400 Respiratory rate 18 /min No Primary Care Physician [facility] 05-09-2025 11:24-0400 SaO2% (BldA) [Mass fraction] 98 % No Primary Care Physician [facility] 05-09-2025 11:24-0400 Systolic blood pressure 121 mm[Hg] No Primary Care Physician [facility] 04-11-2025 09:54-0400 Diastolic blood pressure 71 mm[Hg] No Primary Care Physician [facility] 04-11-2025 09:54-0400 Heart rate 67 /min No Primary Care Physician [facility] 04-11-2025 09:54-0400 Respiratory rate 18 /min No Primary Care Physician [facility] 04-11-2025 09:54-0400 SaO2% (BldA) [Mass fraction] 98 % No Primary Care Physician [facility] 04-11-2025 09:54-0400 Systolic blood pressure 102 mm[Hg] No Primary Care Physician [facility] 04-03-2025 14:25-0400 Body height 162.56 cm No Primary Care Physician [facility] 04-03-2025 14:25-0400 Body temperature 98.1 [degF] No Primary Care Physician [facility] 04-03-2025 14:25-0400 Diastolic blood pressure 71 mm[Hg] No Primary Care Physician [facility] 04-03-2025 14:25-0400 Heart rate 76 /min No Primary Care Physician [facility] 04-03-2025 14:25-0400 Respiratory rate 16 /min No Primary Care Physician [facility] 04-03-2025 14:25-0400 SaO2% (BldA) [Mass fraction] 99 % No Primary Care Physician [facility] 04-03-2025 14:25-0400 Systolic blood pressure 105 mm[Hg] No Primary Care Physician [facility] 03-27-2025 13:53-0400 Body height 162.56 cm No Primary Care Physician [facility] 03-27-2025 13:53-0400 Body temperature 98.6 [degF] No Primary Care Physician [facility] 03-27-2025 13:53-0400 Diastolic blood pressure 75 mm[Hg] No Primary Care Physician [facility] 03-27-2025 13:53-0400 Heart rate 82 /min No Primary Care Physician [facility] 03-27-2025 13:53-0400 Respiratory rate 18 /min No Primary Care Physician [facility] 03-27-2025 13:53-0400 SaO2% (BldA) [Mass fraction] 97 % No Primary Care Physician [facility] 03-27-2025 13:53-0400 Systolic blood pressure 112 mm[Hg] No Primary Care Physician [facility] 03-26-2025 16:30-0400 Body temperature 97 [degF] No Primary Care Physician [facility] 03-26-2025 16:30-0400 Diastolic blood pressure 71 mm[Hg] No Primary Care Physician [facility] 03-26-2025 16:30-0400 Heart rate 70 /min No Primary Care Physician [facility] 03-26-2025 16:30-0400 Respiratory rate 16 /min No Primary Care Physician [facility] 03-26-2025 16:30-0400 SaO2% (BldA) [Mass fraction] 100 % No Primary Care Physician [facility] 03-26-2025 16:30-0400 Systolic blood pressure 117 mm[Hg] No Primary Care Physician [facility] 03-26-2025 13:29-0400 Body height 162.56 cm No Primary Care Physician [facility] 03-26-2025 13:29-0400 Body mass index (BMI) [Ratio] 29.5 kg/m2 No Primary Care Physician [facility] 03-26-2025 13:29-0400 Body weight 78 kg No Primary Care Physician [facility] 03-10-2025 15:59-0400 Body height 162.56 cm No Primary Care Physician [facility] 03-10-2025 15:59-0400 Body mass index (BMI) [Ratio] 30.4 kg/m2 No Primary Care Physician [facility] 03-10-2025 15:59-0400 Body temperature 98.2 [degF] No Primary Care Physician [facility] 03-10-2025 15:59-0400 Body weight 80.28 kg No Primary Care Physician [facility] 03-10-2025 15:59-0400 Diastolic blood pressure 73 mm[Hg] No Primary Care Physician [facility] 03-10-2025 15:59-0400 Heart rate 75 /min No Primary Care Physician [facility] 03-10-2025 15:59-0400 Respiratory rate 18 /min No Primary Care Physician [facility] 03-10-2025 15:59-0400 SaO2% (BldA) [Mass fraction] 98 % No Primary Care Physician [facility] 03-10-2025 15:59-0400 Systolic blood pressure 109 mm[Hg] No Primary Care Physician [facility] 07-13-2023 15:30-0400 Body height 160.02 cm Deonna Boltonon DO Work Phone: [facility]; [facility] Work Phone: 07-13-2023 15:30-0400 Body mass index (BMI) [Ratio] 27.46 kg/m2 Deonna Unique DO Work Phone: [facility]; [facility] Work Phone: 07-13-2023 15:30-0400 Body surface area Derived from formula 1.74 m2 Deonna Unique DO Work Phone: [facility]; [facility] Work Phone: 07-13-2023 15:30-0400 Body temperature 97.8 [degF] Deonna Unique DO Work Phone: [facility]; [facility] Work Phone: Comment on above: Method: Oral 07-13-2023 15:30-0400 Body weight 70.31 kg Deonna Unique DO Work Phone: [facility]; [facility] Work Phone: 07-13-2023 15:30-0400 Diastolic blood pressure 64 mm[Hg] Deonna Unique DO Work Phone: [facility]; [facility] Work Phone: Comment on above: Patient Position: Sitting 07-13-2023 15:30-0400 Heart rate 87 /min Deonna Unique DO Work Phone: [facility]; [facility] Work Phone: Comment on above: Pattern: Regular 07-13-2023 15:30-0400 Respiratory rate 16 /min Deonna Unique DO Work Phone: [facility]; [facility] Work Phone: 07-13-2023 15:30-0400 Systolic blood pressure 98 mm[Hg] Deonna Unique DO Work Phone: [facility]; [facility] Work Phone: Comment on above: Patient Position: Sitting 08-27-2022 14:49-0500 Body height 160.02 cm Deonna Unique DO Work Phone: [facility]; [facility] Work Phone: 08-27-2022 14:49-0500 Body mass index (BMI) [Ratio] 27.46 kg/m2 Deonna Unique DO Work Phone: [facility]; [facility] Work Phone: 08-27-2022 14:49-0500 Body surface area Derived from formula 1.74 m2 Deonna Unique DO Work Phone: [facility]; [facility] Work Phone: 08-27-2022 14:49-0500 Body temperature 98 [degF] Deonna Calhoun DO Work Phone: [facility]; [facility] Work Phone: Comment on above: Method: Oral 08-27-2022 14:49-0500 Body weight 70.31 kg Deonna Calhoun DO Work Phone: [facility]; [facility] Work Phone: 08-27-2022 14:49-0500 Diastolic blood pressure 60 mm[Hg] Deonna Calhoun DO Work Phone: [facility]; [facility] Work Phone: Comment on above: Patient Position: Sitting 08-27-2022 14:49-0500 Heart rate 90 /min Deonna Calhoun DO Work Phone: [facility]; [facility] Work Phone: Comment on above: Pattern: Regular 08-27-2022 14:49-0500 Respiratory rate 16 /min Deonna Calhoun DO Work Phone: [facility]; [facility] Work Phone: 08-27-2022 14:49-0500 SaO2% (BldA) [Mass fraction] 98 % Deonna Calhoun DO Work Phone: [facility]; [facility] Work Phone: Comment on above: Room air 08-27-2022 14:49-0500 Systolic blood pressure 92 mm[Hg] Deonna Calhoun DO Work Phone: [facility]; [facility] Work Phone: Comment on above: Patient Position: Sitting 07-20-2022 12:55-0400 Body height 160.02 cm No Primary Care Physician [facility] Work Phone: 11-02-2022 12:55-0400 Body mass index (BMI) [Percentile] Per age and sex 93.2 % No Primary Care Physician [facility] Work Phone: 07-20-2022 12:55-0400 Body mass index (BMI) [Ratio] 29.5 kg/m2 No Primary Care Physician [facility] Work Phone: 07-20-2022 12:55-0400 Body weight 75.74 kg No Primary Care Physician [facility] Work Phone: 07-20-2022 12:55-0400 Diastolic blood pressure 82 mm[Hg] No Primary Care Physician [facility] Work Phone: 07-20-2022 12:55-0400 Systolic blood pressure 120 mm[Hg] No Primary Care Physician [facility] Work Phone: 12-14-2021 15:06-0400 Body height 160.02 cm No Primary Care Physician [facility] Work Phone: 12-14-2021 15:06-0400 Body mass index (BMI) [Percentile] Per age and sex 91.7 % No Primary Care Physician [facility] Work Phone: 12-14-2021 15:06-0400 Body mass index (BMI) [Ratio] 28.3 kg/m2 No Primary Care Physician [facility] Work Phone: 12-14-2021 15:06-0400 Body weight 72.57 kg No Primary Care Physician [facility] Work Phone: 12-14-2021 15:06-0400 Diastolic blood pressure 70 mm[Hg] No Primary Care Physician [facility] Work Phone: 12-14-2021 15:06-0400 Systolic blood pressure 114 mm[Hg] No Primary Care Physician [facility] Work Phone: 02-12-2021 09:00-0400 Body height 160.02 cm KASSY Augustin LPN [facility]; [facility] Work Phone: 02-12-2021 09:00-0400 Body mass index (BMI) [Ratio] 26.04 kg/m2 KASSY Augustin CADE [facility]; [facility] Work Phone: 02-12-2021 09:00-0400 Body surface area Derived from formula 1.7 m2 KASSY Augustin CADE [facility]; [facility] Work Phone: 02-12-2021 09:00-0400 Body temperature 97.9 [degF] KASSY Augustin CADE [facility]; [facility] Work Phone: Comment on above: Method: Temporal 02-12-2021 09:00-0400 Body weight 66.68 kg KASSY Augustin CADE [facility]; [facility] Work Phone: 02-12-2021 09:00-0400 Diastolic blood pressure 60 mm[Hg] KASSY Augustin CADE [facility]; [facility] Work Phone: Comment on above: Patient Position: Sitting; Cuff Location : Left Arm; Cuff Size: Standard 02-12-2021 09:00-0400 Heart rate 80 /min KASSY Augustin CADE [facility]; [facility] Work Phone: Comment on above: Pattern: Regular 02-12-2021 09:00-0400 Respiratory rate 18 /min KASSY Augustin LPN [facility]; [facility] Work Phone: Comment on above: Pattern: Unlabored 02-12-2021 09:00-0400 SaO2% (BldA) [Mass fraction] 98 % KASSY Augustin CADE [facility]; [facility] Work Phone: Comment on above: Room air 02-12-2021 09:00-0400 Systolic blood pressure 90 mm[Hg] KASSY Augustin CADE [facility]; [facility] Work Phone: Comment on above: Patient Position: Sitting; Cuff Location : Left Arm; Cuff Size: Standard Encounters Encounter Date Encounter Type Care Provider Facility Start: 05-30-2025 End: 05-30-[address] Shabana Llamas MD -[facility] Work Phone: Start: 05-30-2025 End: 05-30-2025 ambulatory No Primary Care Physician -[facility] Start: 05-09-2025 End: 05-09-[address] Shabana Llamas MD -[facility] Work Phone: Start: 05-09-2025 End: 05-09-2025 ambulatory No Primary Care Physician -[facility] Start: 05-06-2025 Encounter for other preprocedural examination Shabana Llamas [facility] Start: 04-11-2025 End: 04-11-[address] Shabana Llamas MD -[facility] Work Phone: Start: 04-11-2025 End: 04-11-2025 ambulatory No Primary Care Physician -[facility] Start: 04-03-2025 End: 04-03-[address] Shabana Llamas MD -[facility] Work Phone: Start: 04-03-2025 End: 04-03-2025 ambulatory No Primary Care Physician -[facility] Start: 03-27-2025 Non-patient / Non-visit Dr. Shabana luna MD -[facility] Start: 03-27-2025 End: 03-27-2025 ambulatory No Primary Care Physician [facility] Start: 03-27-2025 End: 03-27-[address] Shabana Llamas MD -[facility] Work Phone: Start: 03-26-2025 End: 03-26-2025 Admission to same day surgery center Dr. Shabana Llamas [facility] Start: 03-26-2025 End: 03-26-2025 ambulatory No Primary Care Physician -[facility] Start: 03-26-2025 Non-patient / Non-visit Dr. Shabana luna MD -[facility] Start: 03-10-2025 End: 03-10-[address] Shabana Llamas MD -[facility] Work Phone: Start: 03-10-2025 End: 03-10-2025 ambulatory No Primary Care Physician [facility] Work Phone: Start: 07-16-2024 End: 07-20-2024 ambulatory NOT RECORDED PHYSICIAN Facility:[facility] Start: 07-16-2024 End: 07-20-2024 Outreach Lab ALLYN WOMACK MD [facility] Start: 04-08-2024 End: 04-12-2024 ambulatory ALLYN WOMACK MD Facility:[facility] Start: 04-08-2024 End: 04-12-2024 Encounter for gynecological examination (general) (routine) without abnormal findings ALLYN WOMACK MD Facility:[facility] Start: 07-13-2023 End: 07-14-2023 Office outpatient visit 10 minutes Deonna Unique DO Work Phone: [facility] Start: 07-13-2023 Review Deonnabentley Boltono n DO Work Phone: [facility] Start: 07-13-2023 End: 07-13-2023 Lab Order Deonna Unique DO Work Phone: [facility] Start: 06-30-2023 End: 06-30-2023 Nursing evaluation of patient and report Deonna Unique DO Work Phone: [facility] Start: 06-28-2023 End: 06-28-2023 Lab Order Deonna Unique DO Work Phone: [facility] Start: 06-05-2023 End: 06-12-2023 Phone Encounter Deonna Unique DO Work Phone: [facility] Start: 04-13-2023 End: 04-13-2023 Phone Encounter Deonna Unique DO Work Phone: [facility] Start: 04-06-2023 End: 04-06-2023 Phone Encounter Deonna Unique DO Work Phone: [facility] Start: 12-20-2022 End: 01-31-2023 Phone Encounter Deonna Unique DO Work Phone: [facility] Start: 11-21-2022 End: 01-31-2023 Phone Encounter Deonna Calhoun DO Work Phone: [facility] Start: 11-18-2022 End: 11-18-2022 Annotation/Addendum Deonna Boltonon DO Work Phone: [facility] Start: 08-27-2022 End: 09-05-2022 Office outpatient visit 15 minutes Deonna Calhoun DO Work Phone: [facility] Start: 08-27-2022 Review Deonna Ward n DO Work Phone: [facility] Start: 07-20-2022 End: 07-20-2022 ambulatory No Primary Care Physician [facility] Work Phone: Start: 07-20-2022 End: 07-20-2022 Patient encounter procedure No Primary Care Physician [facility]-Laboratory, Specimen Start: 07-20-2022 End: 07-20-2022 Patient encounter procedure No Primary Care Physician [facility] Start: 03-06-2022 End: 03-06-2022 Patient encounter procedure No Primary Care Physician [facility]-Radiology, [facility] Start: 02-09-2022 End: 02-09-2022 Phone Encounter Deonna Calhoun DO Work Phone: [facility] Start: 12-14-2021 End: 12-14-2021 Patient encounter procedure No Primary Care Physician [facility] Start: 11-29-2021 End: 11-29-2021 Phone Encounter Deonna Boltonon DO Work Phone: [facility] Start: 09-13-2021 End: 09-13-2021 Annotation/Addendum Deonna Unique DO Work Phone: [facility] Start: 06-30-2021 End: 06-30-2021 Lab Order Deonna Boltonon DO Work Phone: [facility] Start: 06-24-2021 End: 06-24-2021 Annotation/Addendum Deonna Unique DO Work Phone: [facility] Start: 05-14-2021 End: 05-17-2021 Phone Encounter Deonna Unique DO Work Phone: [facility] Start: 04-21-2021 End: 04-21-2021 Office outpatient visit 5 minutes Deonna Unique DO Work Phone: [facility] Start: 03-03-2021 End: 03-03-2021 Annotation/Addendum Deonna Unique DO Work Phone: [facility] Start: 02-12-2021 End: 02-12-2021 Office outpatient visit 10 minutes Deonna Unique DO Work Phone: [facility] Start: 01-18-2021 End: 01-18-2021 Phone Encounter Deonna Unique DO Work Phone: [facility] Start: 08-07-2020 End: 08-11-2020 Office outpatient visit 25 minutes Deonna Unique [facility] Start: 08-05-2020 End: 08-05-2020 Office outpatient visit 5 minutes Deonna Unique [facility] Start: 08-03-2020 End: 08-03-2020 Annotation/Addendum Deonna Uniuqe [facility] Start: 07-13-2020 End: 07-13-2020 Annotation/Addendum Deonna Unique [facility] Start: 07-13-2020 End: 07-13-2020 Phone Encounter Deonna Unique [facility] Start: 06-26-2020 End: 06-26-2020 Phone Encounter Deonna Unique [facility] Start: 02-19-2020 End: 02-19-2020 Lab Order Deonna Unique [facility] Start: 08-27-2019 End: 08-27-2019 Phone Encounter Deonna Unique [facility] Start: 07-30-2019 End: 07-30-2019 Phone Encounter Deonna Unique [facility] Start: 01-15-2019 End: 01-15-2019 Phone Encounter Deonna Unique [facility] Start: 12-03-2018 End: 12-03-2018 Phone Encounter Deonna Unique [facility] Start: 08-23-2018 End: 08-23-2018 Phone Encounter Deonna Calhoun [facility] Start: 12-05-2017 End: 12-05-2017 Phone Encounter Deonna Calhoun [facility] Start: 11-20-2017 End: 11-20-2017 Patient encounter procedure Deonna Calhoun [facility] Start: 11-14-2017 End: 11-14-2017 Phone Encounter Deonna Calhoun [facility] [employer] [facility] al Medicine Start: 09-08-2015 End: 09-09-2015 Lab Order Deonna Calhoun [facility] Start: 06-20-2013 End: 06-20-2013 Phone Encounter Deonna Calhoun [facility] al Medicine Procedures Date Procedure Procedure Detail Performing Clinician Start: 03-26-2025 Excision No Primary Care Physician Start: 03-26-2025 Anaerobic microbial culture No Primary Care Physician Start: 03-26-2025 Gram stain microscopy No Primary Care Physician Start: 03-26-2025 End: 03-26-2025 Microbial culture, routine No Primary Care Physician Start: 03-06-2022 End: 03-07-2022 Lumbar Spine 2 or 3 Views Procedure Note: See Note; NOTES: [facility] Imaging Services [address] [place] [address] Lumbar Spine 2 or 3 Views MR#: [id number] Acct: [id number] Name: SIRENA CALHOUN Rep #: [id number] : 2005 F 16 From: Virgie Dickson PCP: Care Physician,No Primary Status: REG CLI Study: Lumbar Spine 2 or 3 Views Date of Exam: Exam# [id number] Ordering Dr: Nancy Barahona MD STUDY: X-RAY - LUMBAR SPINE REASON FOR EXAM: Female, 16 years old. FALL TECHNIQUE: 3 view(s) of the lumbar spine were obtained. COMPARISON: None FINDINGS: Vertebral bodies are normal height. No fracture demonstrated. No subluxation. No paravertebral soft tissue mass identified. RAD/Lumbar Spine 2 or 3 Views IMPRESSION: No evidence of fracture or subluxation. Electronically Signed: Virgie Li MD at 0:10 EDT Reading Location ID and State: [facility] / [place] Tel , Service support , CC: Dr. Nancy Barahona MD; No Primary Care Physician Scarifier Operator: Signed Nancy Barahona MD Work Phone: Start: 03-06-2022 Radiography of thoracic spine No Primary Care Physician Start: 03-06-2022 End: 03-07-2022 Thoracic Spine 3 Views Procedure Note: See Note; NOTES: [facility] Imaging Services [address] [place] [address] Thoracic Spine 3 Views MR#: [id number] Acct: [id number] Name: SIRENA CALHOUN Rep #: [id number] : 2005 F 16 From: Virgie Dickson PCP: Care Physician,No Primary Status: REG CLI Study: Thoracic Spine 3 Views Date of Exam: 03/06/22 Exam# [id number] Ordering Dr: Nancy Barahona MD STUDY: X-RAY - THORACIC SPINE REASON FOR EXAM: Female, 16 years old. FALL TECHNIQUE: 3 view(s) of the thoracic spine were obtained. COMPARISON: None. FINDINGS: Vertebral bodies are normal height. No definite fracture demonstrated. No subluxation. No paravertebral soft tissue mass identified. RAD/Thoracic Spine 3 Views IMPRESSION: No evidence of fracture or subluxation. Electronically Signed: Virgie Li MD at 0:10 EDT , CC: Dr. Nancy Barahona MD; No Primary Care Physician Scarifier Operator: Signed Nancy Barahona MD Work Phone: Start: 03-06-2022 X-ray of lumbar spine, two or three views No Primary Care Physician Start: 03-06-2022 End: 03-07-2022 Cerv Spine 4 or 5 Views Procedure Note: See Note; NOTES: [facility] Imaging Services [address] [address] Cerv Spine 4 or 5 Views MR#: [id number] Acct: [id number] Name: SIRENA CALHOUN Rep #: [id number] : 2005 F 16 From: Virgie Dickson PCP: Care Physician,No Primary Status: REG CLI Study: Cerv Spine 4 or 5 Views Date of Exam: 03/06/22 Exam# [id number] Ordering Dr: Nancy Barahona MD STUDY: X-RAY - CERVICAL SPINE REASON FOR EXAM: Female, 16 years old. FALL -- AP,LAT, FLEX EXTENSION TECHNIQUE: 6 view(s) of the cervical spine were obtained. COMPARISON: None FINDINGS: Vertebral bodies are normal in height. No definite fracture demonstrated. There is straightening of the normal curvature. Mild curvature convex left with head tilt to the right. C1-2 alignment is maintained. Prevertebral soft tissues are unremarkable. No subluxation with flexion or extension. RAD/Cerv Spine 4 or 5 Views IMPRESSION: No evidence of fracture or subluxation. Straightening of the normal curve may be due to positioning or muscle spasm. Electronically Signed: Virgie Li MD at 0:08 EDT , CC: Dr. Nancy Barahona MD; No Primary Care Physician Scarifier Operator: Signed Nancy Barahona MD Work Phone: Start: 03-06-2022 X-ray of cervical spine No Primary Care Physician Start: 08-05-2020 End: 08-05-2020 Hand Min 3 Views Comments: See Note; NOTES: [facility] Radiology [address] [place] [address] Hand Min 3 Views MR#: [id number] Acct: [id number] Name: SIRENA CALHOUN Rep #: [id number] : 2005 F 15 From: Cricket Kennedy MD PCP: Dr. Odette Augustin MD Status: DEP AMB Study: Hand Min 3 Views Date of Exam: 08/05/20 Exam# [id number] Ordering Dr: Ernestina Damico DO STUDY: X-RAY - LEFT HAND REASON FOR EXAM: Female, 15 years old. pain medial aspect left wrist s/p fall TECHNIQUE: 3 view(s) of the hand. COMPARISON: None. FINDINGS: Normal radiocarpal articulation. Normal distal radioulnar joint. Normal visualized carpal bones. Normal carpal articulations Normal carpometacarpal articulation of the thumb. Normal second through fifth carpometacarpal joints. Normal metacarpi. Normal metacarpophalangeal joint of the thumb. Normal interphalangeal joint of the thumb. Normal proximal and distal phalanges of the thumb. Normal metacarpophalangeal joints of the second through fifth fingers. Normal proximal and distal interphalangeal joints of the second through fifth fingers. Normal phalanges of the second through fifth fingers. The soft tissue structures are unremarkable. RAD/Hand Min 3 Views IMPRESSION: Normal x-ray examination of the hand. Electronically Signed: Cricket Kennedy MD at 16:08 EST , Service support , CC: Dr. Ernestina Damico DO; Dr. Odette Augustin MD Scarifier Operator: Signed Ernestina Rodri Mookie Work Phone: Start: 05-21-2018 End: 05-21-2018 Lumbar Spine 2 or 3 Views Comments: See Note; NOTES: [facility] Imaging Services [address] [place] [address] Lumbar Spine 2 or 3 Views MR#: [id number] Acct: [id number] Name: SIRENA CALHOUN Rep #: [id number] : 2005 F 12 From: Radha Ferguson MD PCP: Odette Augustin MD Status: DEP ER Study: Lumbar Spine 2 or 3 Views Date of Exam: 05/21/18 Exam# [id number] Ordering Dr: Nancy Barahona MD STUDY: X-RAY - LUMBAR SPINE REASON FOR EXAM: Female, 12 years old. Low back pain after falling while playing volleyball. TECHNIQUE: AP and lateral view(s) of the lumbar spine were obtained. There is minimal collimation on the radiographs. COMPARISON: CT of abdomen and pelvis dated November 19, 2017. FINDINGS: Normal lumbar lordosis. There is no substantial scoliosis. There is a normal alignment of the vertebrae. Normal vertebral bodies and endplates. Normal disc space heights. There is no demonstrated fracture. The soft tissue structures are unremarkable. RAD/Lumbar Spine 2 or 3 Views IMPRESSION: No radiographic evidence of acute compression or displaced fracture of the lumbar spine. Electronically Signed: Radha Ferguson MD at 20:32 EDT , Service support , CC: Nancy Barahona MD; Odette Augustin MD Scarifier Operator: Signed Nancy Barahona Work Phone: Start: 05-21-2018 End: 05-21-2018 Sacrum-Coccyx min 2 Views Comments: See Note; NOTES: [facility] Imaging Services [address] [place] [address] Sacrum-Coccyx min 2 Views MR#: [id number] Acct: [id number] Name: SIRENA CALHOUN Rep #: [id number] : 2005 F 12 From: Radha Ferguson MD PCP: Odette Augustin MD Status: DEP ER Study: Sacrum-Coccyx min 2 Views Date of Exam: 05/21/18 Exam# [id number] Ordering Dr: Nancy Barahona MD STUDY: X-RAY - SACRUM/COCCYX REASON FOR EXAM: Female, 12 years old. Coccygeal pain after recent fall. TECHNIQUE: 3 view(s) of the sacrum and coccyx were obtained. COMPARISON: CT of abdomen and pelvis dated November 19, 2017. FINDINGS: Normal bilateral sacroiliac joints. Normal visualized sacral ala and fused sacral bodies. Normal sacrococcygeal junction with a normal angulation. Normal coccygeal segments. The presacral soft tissue structures are unremarkable. RAD/Sacrum-Coccyx min 2 Views IMPRESSION: No radiographic evidence for acute fracture. If there is still clinical concern for acute fracture, follow-up bone scan maybe helpful in evaluating a healing radiographically occult fracture. Electronically Signed: Radha Ferguson MD at 20:27 EDT , Service support , CC: Nancy Barahona MD; Odette Augustin MD Scarifier Operator: Signed Nancy Barahona Work Phone: Start: 11-19-2017 End: 11-19-2017 Abdomen/Pelvis WITH Contrast Comments: See Note; NOTES: [facility] Imaging Services [address] [place] [address] Abdomen/Pelvis WITH Contrast MR#: [id number] Acct: [id number] Name: SIRENA CALHOUN Rep #: [id number] : 2005 F 12 From: Angélica Gillis MD PCP: Status: REG CLI Study: Abdomen/Pelvis WITH Contrast Date of Exam: 11/19/17 Exam# [id number] Ordering Dr: Nancy Barahona MD STUDY: CT ABDOMEN AND PELVIS WITH CONTRAST REASON FOR EXAM: Female, 12 years old. RLQ PAIN WITH FEELING OF FULLNESS RADIATION DOSAGE (If Supplied By Facility): CTDIvol = ( 10.29 ) mGy, DLP = ( 524.52 ) mGycm TECHNIQUE: Transaxial images were obtained from the dome of the diaphragm to the symphysis pubis with oral contrast. 60 ml of Isovue 300 contrast was administered. Sagittal and coronal images were reconstructed. Individualized dose optimization techniques were used for this CT. COMPARISON: None. FINDINGS: The visualized lung bases are unremarkable. The visualized portions of the heart are within normal limits. Normal liver. Normal gallbladder and extrahepatic biliary system. Normal spleen. Normal pancreas. Normal bilateral adrenal glands. Normal right kidney. Normal left kidney. Normal visualized stomach. Normal small intestine. There is retained stool throughout the colon. . The appendix not well seen but appears normal. Normal abdominal aorta. Normal inferior vena cava. Normal retroperitoneum. Normal urinary bladder. Normal abdominal wall. Normal osseous structures. CT/Abdomen/Pelvis WITH Contrast IMPRESSION: There is retained stool throughout the colon. Electronically Signed: Angélica Gillis MD at 17:52 EST , Service support , CC: Nancy Barahona MD Scarifier Operator: Signed Nancy Barahona Work Phone: Start: 11-18-2017 End: 11-18-2017 Chest PA and Lateral Comments: See Note; NOTES: [facility] Imaging Services [address] [place] [address] Chest PA and Lateral MR#: [id number] Acct: [id number] Name: SIRENA CALHOUN Rep #: [id number] : 2005 F 12 From: Chrissie Bird MD PCP: Status: REG CLI Study: Chest PA and Lateral Date of Exam: 11/18/17 Exam# [id number] Ordering Dr: Deonna Calhoun DO STUDY: X-RAY CHEST REASON FOR EXAM: Female, 12 years old. Cough TECHNIQUE: Frontal and lateral views of the chest were obtained. COMPARISON: September 22, 2010 FINDINGS: The lungs are adequately aerated. There are no focal airspace opacities. There is no demonstrated pleural abnormality. The cardiac silhouette is normal in size. The mediastinum and hilar regions are unremarkable. Normal visualized pulmonary arteries. Normal visualized aortic arch and descending thoracic aorta. The thoracic spine is unremarkable. The visualized ribs, clavicles, and shoulders are unremarkable. There is no demonstrated abnormality of the visualized upper abdomen. RAD/Chest PA and Lateral IMPRESSION: There is no evidence of focal consolidation or pleural effusion. Electronically Signed: Chrissie Bird MD at 14:24 EST Tel Direct: [phone], Service support , CC: Deonna Calhoun DO; Odette Augustin MD Scarifier Operator: Signed Deonna Calhoun Work Phone: Start: 06-18-2013 End: 06-26-2013 Hand Min 3 Views Comments: See Note; NOTES: [facility] Imaging Services [address] [place] [address] Radiology Report MR#: [id number] Acct: [id number] Name: SIRENA CALHOUN Rep #: [id number] : 2005 F 8 From: JACLYN COLEMAN PCP: Status: REG CLI Study: Hand Min 3 Views Date of Exam: 06/18/13 Exam# [id number] Ordering Dr: Deonna Calhoun DO STUDY: X-RAY - LEFT HAND REASON FOR EXAM: Female, 8 years old. Injury to fifth digit. TECHNIQUE: 3 view(s) of the hand. COMPARISON: June 06, 2013. FINDINGS: Normal visualized carpal bones and carpal articulations. Normal carpometacarpal articulation of the thumb. Normal second through fifth carpometacarpal joints. Normal metacarpi. Normal metacarpophalangeal (MCP) joints. Normal visualized phalanges and interphalangeal joints. The soft tissue structures are unremarkable. IMPRESSION: Normal x-ray examination of the hand. Signed: Jaclyn Coleman M.D. June 18, 2013 at 5:59:06 PM EDT [phone] Electronically Signed RR/RR If you are the referring physician and would like to consult with the radiologist who provided this interpretation, please contact Jaclyn Coleman M.D. at [phone]. If this radiologist is unavailable, you will be directed to another radiologist to assist. If you are a patient with a question regarding this report, please contact your referring physician directly. Professional Interpretation Provided By: [employer], Phone , These documents contain legally protected and confidential health information intended only for the use of the individual or entity named above. If you are not the intended recipient, you are hereby notified that any disclosure, copying, distribution, or other use of these documents is strictly prohibited. If you have received this information in error, please notify the sender immediately and arrange for the return or destruction of these documents. CC: Deonna Calhoun DO Scarifier Operator: Signed Deonna Calhoun Work Phone: None (qualifier value) ALLYN WOMACK MD Plan of Treatment Date Care Activity Detail Author Start: 03-26-2025 Patient discharge [facility] Start: 03-26-2025 Anaerobic Culture Anaerobic Culture [facility] Start: 03-26-2025 Anesthesia vaginal procedure w/biopsy nos ANESTH VAGINAL PROCEDURES [facility] Start: 03-26-2025 Exc b9 lesion mrgn xcp sk tg s/n/h/f/g 0.5 cm/< EXC H-F-NK-SP B9+INOCENCIA 0.5/< [facility] Start: 03-26-2025 Exc b9 lesion mrgn xcp sk tg s/n/h/f/g 1.1-2.0cm EXC H-F-NK-SP B9+INOCENCIA 1.1-2 [facility] Start: 03-26-2025 Microbial culture, routine Wound Culture [facility] Start: 03-26-2025 Microscopic observation [Identifier] in Unspecified specimen by Gram stain Gram Stain [facility] Start: 03-26-2025 Repair intermediate n/h/f/xtrnl gent 2.6-7.5 cm INTMD RPR N-HF/GENIT2.6-7.5 [facility] Start: 03-26-2025 Wound Culture Wound Culture [facility] Start: 03-26-2025 Source specific culture [facility] Start: 07-13-2023 Cul bact xcpt urine blood/stool aerobic isol AYM CULTURE-OTHER (09528) [facility]; [facility] Work Phone: Start: 06-30-2023 Assay of hydroxyindolacetic acid 5-hiaa HYDROXYINDOLACET ACID 5- (23394) [facility]; [facility] Work Phone: Start: 06-28-2023 Assay of c-peptide C-PEPTIDE (81994) [facility]; [facility] Work Phone: Start: 06-28-2023 Assay of free thyroxine THYROXINE FREE (22294) [facility]; [facility] Work Phone: Start: 06-28-2023 Assay of hydroxyindolacetic acid 5-hiaa HYDROXYINDOLACET ACID 5- (75972) [facility]; [facility] Work Phone: Start: 06-28-2023 Assay of thyroid stimulating hormone tsh TSH (THYROID STIMULATING HORMONE) (06203) [facility]; [facility] Work Phone: Start: 06-28-2023 Assay of triiodothyronine t3 free T3, FREE (TRIDOTHYRONINE) (22857) [facility]; [facility] Work Phone: Start: 06-28-2023 Blood count complete auto&auto difrntl wbc CBC, PLATELETS & AUT DIFF (11800) [facility]; [facility] Work Phone: Start: 06-28-2023 C-reactive protein C-REACTIVE PROTEIN (41718) [facility]; [facility] Work Phone: Start: 06-28-2023 Comprehensive metabolic panel METABOLIC PANEL, COMPREHENSIVE (64680) [facility]; [facility] Work Phone: Start: 06-28-2023 Sedimentation rate rbc non-automated ESR-F (SED RATE ERYTHROCYTE - FEMALE) (36187) [facility]; [facility] Work Phone: Start: 04-13-2023 Gonadotropin chorionic qualitative HCG Qualitative, Serum (61682) [facility]; [facility] Work Phone: Start: 04-13-2023 Gonadotropin chorionic quantitative HCG Quantitative (07645) [facility]; [facility] Work Phone: Start: 04-06-2023 Antibody herpes smplx type 2 Herpes Simplex (HSV) II Ab (32403) [facility]; [facility] Work Phone: Comment on above: fax results to Dr. Janice Vicente [phone] Start: 04-06-2023 Assay of ferritin FERRITIN (17219) [facility]; [facility] Work Phone: Comment on above: fax results to Dr. Janice Vicente Start: 04-06-2023 Assay of thyroid stimulating hormone tsh TSH (THYROID STIMULATING HORMONE) (01656) [facility]; [facility] Work Phone: Start: 04-06-2023 CBC, PLATELETS & MANUAL DIFF (11331) CBC, PLATELETS & MANUAL DIFF (04986) [facility]; [facility] Work Phone: Comment on above: fax results to Dr. Janice [phone] Start: 04-06-2023 Comprehensive metabolic panel METABOLIC PANEL, COMPREHENSIVE (97054) [facility]; [facility] Work Phone: Start: 04-06-2023 Hepatitis c antibody HEPATITIS C ANTIBODY (26116) [facility]; [facility] Work Phone: Comment on above: fax results to Dr. Janice Vicente Start: 04-06-2023 Iaad ia hepatitis b surface antigen HEPATITIS B SURFACE ANTIGEN (52652) [facility]; [facility] Work Phone: Comment on above: fax results to Dr. Janice Vicente Start: 04-06-2023 Iaad ia hiv-1 ag w/hiv-1 & hiv-2 antbdy single HIV-1 AG W/HIV-1 & HIV-2 AB (54512) [facility]; [facility] Work Phone: Comment on above: fax results to Dr. Janice Vicente [phone] Start: 04-06-2023 Lipid panel LIPID PANEL (23901) [facility]; [facility] Work Phone: Start: 04-06-2023 Syphilis test non-treponemal antibody qual RPR (RAPID PLASMA REAGIN) (37558) [facility]; [facility] Work Phone: Comment on above: fax results to Dr. Janice Vicente Start: 11-18-2022 25 hydroxy includes fractions if performed CALCIFEDIOL (25617) [facility]; [facility] Work Phone: Start: 11-18-2022 Assay of ferritin FERRITIN (53185) [facility]; [facility] Work Phone: Start: 11-18-2022 Assay of iron IRON (22102) [facility]; [facility] Work Phone: Start: 11-18-2022 Assay of thyroid stimulating hormone tsh TSH (THYROID STIMULATING HORMONE) (63471) [facility]; [facility] Work Phone: Start: 11-18-2022 CBC, PLATELETS & MANUAL DIFF (87817) CBC, PLATELETS & MANUAL DIFF (45552) [facility]; [facility] Work Phone: Start: 11-18-2022 Comprehensive metabolic panel METABOLIC PANEL, COMPREHENSIVE (07924) [facility]; [facility] Work Phone: Start: 11-18-2022 Iron binding capacity IRON BINDING CAPACITY (TIBC) (74090) [facility]; [facility] Work Phone: Start: 11-29-2021 Antibody herpes smplx type 2 Herpes Simplex 1&2 IGG (89196) [facility]; [facility] Work Phone: Start: 11-29-2021 25 hydroxy includes fractions if performed CALCIFEDIOL (72236) [facility]; [facility] Work Phone: Start: 11-29-2021 Lipid panel LIPID PANEL (60916) [facility]; [facility] Work Phone: Start: 06-26-2020 Lipid panel LIPID PANEL (90147) [facility] Work Phone: Start: 07-30-2019 Lipid panel LIPID PANEL (10119) [facility] Work Phone: Start: 07-30-2019 25 hydroxy includes fractions if performed CALCIFEDIOL (45920) [facility] Work Phone: Start: 07-30-2019 Antibody melania-keenan eb virus early antigen ea EBV Panel (75622) [facility] Work Phone: Start: 07-30-2019 Blood count manual cell count each CBC WITH MANUAL DIFF (89154) [facility] Work Phone: Start: 07-30-2019 TSH Qn TSH (58875) [facility] Work Phone: Start: 07-30-2019 Comprehensive metabolic panel Metabolic Panel, Comprehensive (56489) [facility] Work Phone: Start: 08-23-2018 1 25 dihydroxy includes fractions if performed VITAMIN D, 1, 25-DIHYDROXY (67088) [facility] Work Phone: Start: 09-09-2015 Cul bact xcpt urine blood/stool aerobic isol AMY CULTURE-OTHER (94201) [facility] Work Phone: Comment on above: throat Start: 09-09-2015 Virus centrifuge enhncd id imfluor stain ea Influenza A&B Viral Culture (52016) [facility] Work Phone: Start: 09-08-2015 Culture bct isol&prsmptv id isolate ea urine URINE AMY CULTURE-IDENTIFICATN (88727) [facility] Work Phone: Bacteria identified in Unspecified specimen by Anaerobe culture [facility] Microbial culture, routine [facility] Microscopic observat ion [Identifier] in Unspecified specimen by Gram stain [facility] Wound microscopy, cu lture and sensitivities [facility] Work Phone: [facility] Work Phone: [facility]; [facility] Work Phone: [facility]; [facility] Work Phone: [facility]; [facility] Work Phone: Payers Date Payer Category Payer Self-pay [id number] 2024 Unknown [id number] 2024 Unknown [id number] 2003 Unknown [id number] 2.16.8 [id number] 2003 Unknown [id number] 2.16.8 [id number] Unknown Unknown [id number] 2.16.8 [id number] Unknown [id number] 2.16.8 [id number] Unknown [id number] 2.16.8 [id number] Unknown [id number] 2.16.8 [id number] Unknown [id number] 2.16.8 [id number] Unknown [id number] 2.16.8 [id number] Unknown [id number] 2.16.8 [id number] Unknown [id number] 2.16.8 [id number] Unknown [id number] 2.16.8 [id number] Social History Date Type Detail Facility Start: 07-12-2021 End: 07-12-2021 Tobacco smoking status NHIS Unknown if ever smoked [facility] Work Phone: Start: 2005 Sex Assigned At Female [facility] Start: 04-05-2023 End: 03-13-2025 Tobacco smoking status Never smoked tobacco (finding) [facility] Sex Assigned At Sex [facility] Not [facility] NEGATED: Highlighted row Not [facility] Goals Date Patient Goal Desired Activity /State Functional Status Date Assessment Result Facility 03-26-2025 Functional status Patient Activi ty Ambulates;Bathroom Privilege [facility] Work Phone: Mental Status Date Assessment Result Facility 03-26-2025 Cognitive function Voice/Name [facility] Work Phone: Clinical Notes 07-18-2024 to 03-26-2025 Note Date & Type Note Facility 03-26-2025 Consult note [facility] 03-26-2025 Consult note Note Date/Time March 26, 2025 2:06pm [facility] Medical Records Department [address] [place] [address] Pre-Anesthesia Evaluation 03/26/25 1405 MR#: [id number] Acct: [id number] Name: SIRENA CALHOUN Rep #:[id number] : 2005 19 From: Marcin Dickson PCP: Dr. Nancy Barahona MD Status:REG S DC Y Race: C Location: [place] [address] ASA Classification* ASA Classification ASA Classification: 1 Assessment & Plan Anesthesia* Anesthesia Assessment Anesthesia Assessment: Discussed sedation and/or anesthesia options, risks, benefits, and alternatives with patient/parents/legal guardian/POA. Questions invited. The patient/parents/legal guardian/POA seems to understand and agrees to proceedwith anesthesia plan. Reviewed the physical assessment, medical history, allergy history and patient home medications list prior to surgery/procedure/anesthetic and documented any changes. Performed airway and anesthesia risk assessments. Anesthesia Type Anesthesia Type: General History Source History Obtained from:: Patient and Chart Anesthesia Focused Assessment* Temperature: 97.0 F Pulse Rate: 67 Blood Pressure: 114/63 Respiratory Rate: 12 Pulse Ox: 100 Oxygen Delivery Method: Room Air Airway Assessment Mouth opens: >3 cm Mallampati Score: I Teeth Condition: Intact Neck Range of motion (ROM): Full ROM Labs Anesthesia Preop lab: CBC CHEMISTRY COAG Urine Test Negative Negative 03/26/25 13:15 03/26/25 Tst Clinic Negative 07/20/22 13:09 07/20/22 Pre-Assessment Diagnosis/Proposed Procedure Planned Operative Procedure(s): REMOVAL RIGHT LABIAL CYST Anesthesia History 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 When Was Last Pacemaker Check QUESTION #4 FULL TEXT: You/Your Family Experience fever (hyperthermia) with Anesthesia Last Oral Intake Last Oral intake: Last Oral Intake NPO since 20:00 03/26/25 13:29 Meds taken in AM with sips of No 03/26/25 13:29 water? Meds patient instructed to take am of surgery PONV PONV - measurement and verification engineer: PONV - measurement and verification engineer Female Yes 03/13/25 10:08 HX of Motion Sickness No 03/13/25 10:08 HX of N/V After Surgery No 03/13/25 10:08 Non-Smoker Yes 03/13/25 10:08 Duration of Surgery greater Yes 03/13/25 10:08 than 60 minutes Number of Risk Factors 3 03/13/25 10:08 PONV Score Moderate Risk 03/13/25 10:08 Height & Weight Height & Weight: Anesthesia: Height & Weight Height 5 ft 4 in 03/26/25 13:29 Weight: 78 kg 03/26/25 13:29 Body Mass Index (BMI) 29.5 03/26/25 13:29 Respiratory Assessment Respiratory Assessment - measurement and verification engineer: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 verified by [facility] STEF CARRASCO Sign out Date: 07/19/2024 12:05 Performing Lab: [facility], [address] [place] [address] Pathology Dept [facility] 10-31-2024 Note Pathology Report verified by [facility] STEF CARRASCO Sign out Date: 07/19/2024 12:05 Performing Lab: [facility], [address] [place] [address] [place] [facility] [facility] 10-31-2024 Note Pathology Report verified by [facility] STEF CARRASCO Sign out Date: 07/19/2024 12:05 Performing Lab: [facility], [address] [place] [address] [place] Path[place] Dept [facility] 10-31-2024 Note Pathology Report verified by [facility] STEF CARRASCO Sign out Date: 07/19/2024 12:05 Performing Lab: [facility], [address] [place] [address] [place] [facility] [facility] 10-31-2024 Note Pathology Report verified by [facility] STEF CARRASCO Sign out Date: 07/19/2024 12:05 Performing Lab: [facility], [address] [place] [address] Pathology Dept [facility] Consult note Author Nitish Godwin [facility] Note Date/Time March 26, 2025 5:21p [facility] Medical Records Department [address] [place] [address] Anesthesia Postop Eval I 03/26/25 1623 MR#: [id number] Acct: [id number] Name: SIRENA CALHOUN Rep #:[id number] : 2005 19 From: Nitish AMEZCUA PCP: Dr. Nancy Barahona MD Status:REG S DC Y Race: C Location: [place] [address] Anesthesia: Postop Eval I Current Vital Signs Temperature: 97 F Pulse Rate: 67 Blood Pressure: 114/63 Respiratory Rate: 16 Pulse Ox: 100 Oxygen Delivery Method: Room Air Assessment Airway patent: Yes Spontaneous unlabored respirations: Yes Mental status: Awake and Calm nausea: No Vomiting: No Anesthesia Complication: No Fluid Hydration Crystalloid volume administer (ml): 800 Total IV fluid infused: 800 Progress Note Anesthesia document: Postop Eval 1 completed: Yes 03/26/253 <Electronically signed by Nitish Godwin CRNA> Date _ Nitish Godwin MAKEUP INSTRUCTOR Cosigner Signature: Date CC: ~ Signed [facility] Work Phone: Evaluation + Plan note No data available for this section [facility] Evaluation note* Diagnosis Onset Date Resolution Status Encounter for IUD removal ac [place] [facility] Work Phone: Evaluation noteNo assessment information available [facility] Work Phone: Hospital Discharge instructions No data available for this section [facility] Hospital Discharge instructionsAdditional Instructions Operations Performed: Cyst excision Instructions for My Care at Home or Healthcare Facility The following instructions will help you know what to expect in the days following surgery. These are general instructions. Your surgeon and therapist may give you special instructions, which vary to some degree based on your specific procedure -- follow those as directed. Do not, however, hesitate to call if you have any questions or concerns. Splint Care/Dressing Care/Wound Care Dressings - Use witch glo pads for the first week (Tucks pads) as needed. Avoid smoking or other tobacco products. Smoking tobacco impairs wound healing and increases the risks of post-operative complications. Tape over your incisions (if present) will fall off on its own Activities For the first 4 weeks after surgery, try to balance your activity, allowing time for rest. Avoid lifting, pushing, or pulling anything over [address] or operate heavy machinery within 24 hrs of surgery or while taking narcotic pain medication. Pain Control/Medications If you received an anesthetic block, your hand or arm may be numb for several hours. You will be discharged to home with medications, including an oral pain medication (analgesic). Rest and elevation are still one of the most important factors for pain control. Take your pain medication as needed, but do not wait for the pain to become out of control. For severe pain, you may take prescription pain medication as directed, but please note that this may also contain Tylenol (e.g. Percocet). Do not take more than 4000mg of Tylenol (acetaminophen) from all sources daily. Pain medication may cause some lethargy, nausea, and or constipation. You should not drive/operate dangerous machinery while taking these medications. If these or other symptoms become significantly problematic, please your surgeon's office. If prescribed oral antibiotics (Keflex, Clindamycin, or others), please take prescription for full duration as instructed. You should not have any pills remaining once completed (refills are written for your convenience should the course need to be extended, but generally they are not required). Diet (what I can eat): Resume normal diet Follow up You will be seen (most likely) 1 to 2 weeks after surgery depending on the procedure. Follow-up appointment reminders: (A list of any scheduled appointments is at the end of this document) At your earliest convenience, please call [phone] to confirm/schedule a follow-up appointment with me in clinic. When to call your surgeon: If any signs of surgical site infection develop: redness, pus, pain, increased swelling or foul odor at the incision site, fever, cold and clammy skin, or confusion. Consistent temperature above 101 F (38.3 C). The affected area gets swollen or much more painful. You have excessive bleeding from surgical site (soaking through). If you experience difficulty breathing and/or shortness of breath, seek immediate medical attention. If experiencing any of the above complications or if you have any questions, call [phone] Work Phone: Instructions* Name Dates Details Patient Instructions Indication:Attention deficit Start:12-Feb-2021 Instruction Type:Provider Instructions for Treatment How to Access Health Informa tion Online using Patient Portal and [employer] Apps Indication:Attention deficit Start:12-Feb-2021 Instruction Type:Patient Education [facility] Work Phone: instructions* Name Dates Details Patient Instructions Indication:Attention deficit Start:12-Feb-2021 Instruction Type:Provider Instructions for Treatment How to Access Health Informa tion Online using Patient Portal and [employer] Apps Indication:Attention deficit Start:12-Feb-2021 Instruction Type:Patient Education [facility] Work Phone: instructions* Name Dates Details Patient Instructions Indication:Attention deficit Start:12-Feb-2021 Instruction Type:Provider Instructions for Treatment How to Access Health Informa tion Online using Patient Portal and [employer] Apps Indication:Attention deficit Start:12-Feb-2021 Instruction Type:Patient Education [facility]; [facility] Work Phone: Insfnrmiptzd* Name Dates Details Patient Instructions Indication:Attention deficit Start:12-Feb-2021 Instruction Type:Provider Instructions for Treatment How to Access Health Informa tion Online using Patient Portal and [employer] Apps Indication:Attention deficit Start:12-Feb-2021 Instruction Type:Patient Education [facility]; [facility] Work Phone: instructions* Name Dates Details Patient Instructions Indication:Attention deficit Start:12-Feb-2021 Instruction Type:Provider Instructions for Treatment How to Access Health Informa tion Online using Patient Portal and [employer]rd [employer] Apps Indication:Attention deficit Start:12-Feb-2021 Instruction Type:Patient Education [facility]; [facility] Work Phone: instructions* Name Dates Details Patient Instructions Indication:Attention deficit Start:12-Feb-2021 Instruction Type:Provider Instructions for Treatment How to Access Health Informa tion Online using Patient Portal and 3rd [employer] Apps Indication:Attention deficit Start:12-Feb-2021 Instruction Type:Patient Education [facility]; [facility] Work Phone: instructions* Name Dates Details Patient Instructions Indication:Attention deficit Start:12-Feb-2021 Instruction Type:Provider Instructions for Treatment How to Access Health Informa tion Online using Patient Portal and [employer] Apps Indication:Attention deficit Start:12-Feb-2021 Instruction Type:Patient Education [facility]; [facility] Work Phone: instructions* Name Dates Details Patient Instructions Indication:Attention deficit Start:12-Feb-2021 Instruction Type:Provider Instructions for Treatment How to Access Health Informa tion Online using Patient Portal and [employer] Apps Indication:Attention deficit Start:12-Feb-2021 Instruction Type:Patient Education [facility]; [facility] Work Phone: instructions* Name Dates Details Patient Instructions Indication:Attention deficit Start:12-Feb-2021 Instruction Type:Provider Instructions for Treatment How to Access Health Informa tion Online using Patient Portal and 3rd [employer] Apps Indication:Attention deficit Start:12-Feb-2021 Instruction Type:Patient Education [facility]; [facility] Work Phone: instructions* Name Dates Details Patient Instructions Indication:Attention deficit Start:12-Feb-2021 Instruction Type:Provider Instructions for Treatment How to Access Health Informa tion Online using Patient Portal and [employer] Apps Indication:Attention deficit Start:12-Feb-2021 Instruction Type:Patient Education [facility]; [facility] Work Phone: instructions* Name Dates Details Patient Instructions Indication:Attention deficit Start:12-Feb-2021 Instruction Type:Provider Instructions for Treatment How to Access Health Informa tion Online using Patient Portal and [employer] Apps Indication:Attention deficit Start:12-Feb-2021 Instruction Type:Patient Education [facility]; [facility] Work Phone: instructions* Name Dates Details Patient Instructions Indication:Attention deficit Start:12-Feb-2021 Instruction Type:Provider Instructions for Treatment How to Access Health Informa tion Online using Patient Portal and [employer] Apps Indication:Attention deficit Start:12-Feb-2021 Instruction Type:Patient Education [facility]; [facility] Work Phone: instructions* Name Dates Details Patient Instructions Indication:Attention deficit Start:12-Feb-2021 Instruction Type:Provider Instructions for Treatment How to Access Health Informa tion Online using Patient Portal and [employer] Apps Indication:Attention deficit Start:12-Feb-2021 Instruction Type:Patient Education [facility]; [facility] Work Phone: instructions* Name Dates Details Patient Instructions Indication:Attention deficit Start:12-Feb-2021 Instruction Type:Provider Instructions for Treatment How to Access Health Informa tion Online using Patient Portal and [employer] Apps Indication:Attention deficit Start:12-Feb-2021 Instruction Type:Patient Education [facility]; [facility] Work Phone: instructions* Name Dates Details Patient Instructions Indication:Attention deficit Start:12-Feb-2021 Instruction Type:Provider Instructions for Treatment How to Access Health Informa tion Online using Patient Portal and [employer] Apps Indication:Attention deficit Start:12-Feb-2021 Instruction Type:Patient Education [facility]; [facility] Work Phone: instructions* Name Dates Details Patient Instructions Indication:Attention deficit Start:12-Feb-2021 Instruction Type:Provider Instructions for Treatment How to Access Health Informa tion Online using Patient Portal and [employer] Apps Indication:Attention deficit Start:12-Feb-2021 Instruction Type:Patient Education [facility]; [facility] Work Phone: reason for referral (narrative)No reason for referral [facility] Work [facility]: Summary Purpose Family History No Family History Records Found Relationship Condition Age at Onset Recorded Date/T alia Not Specified Alcoholism Unknown Advance Directives No Advanced Directives Records Found Advance Directive Response Recorded Date/ Time Do you have a Healthcare Power of Town Administrator? No March 13, 2025 10:08am Chief Complaint and Reason for Visit Chief Complaint IUD REMOVAL X RAYS Reason for Visit Encounter for IUD re moval Chief Complaint Copper IUD placement Chief Complaint Admit Date CYST March 10, 2025 3:36 pm Chief Complaint Admit Date CYST March 10, 2025 3:36 pm Removal right labial cyst March 26, 2025 1:04pm Removal right labial cyst March 26, 2025 1:51pm Reason for Visit Admit Date Inclusion cyst of vulva March 10, 2025 3:36pm Inclusion cyst of vulva March 26, 2025 1 :04pm Chief Complaint Admit Date CYST March 10, 2025 3:36 pm Removal right labial cyst March 26, 2025 1:04pm Removal right labial cyst March 26, 2025 1:51pm POST OP March 27, 2025 1:49 pm Chief Complaint Admit Date CYST March 10, 2025 3:36 pm Removal right labial cyst March 26, 2025 1:04pm Removal right labial cyst March 26, 2025 1:51pm POST OP March 27, 2025 1:49 pm Removal right labial cyst March 27 3:29pm POST OP April 03, 2025 2:07 pm Reason for Visit Admit Date Inclusion cyst of vulva March 10, 2025 3:36pm Inclusion cyst of vulva March 26, 2025 1 :04pm Inclusion cyst of vulva March 27, 2025 1:49pm Chief Complaint Admit Date CYST March 10, 2025 3:36 pm Removal right labial cyst March 26, 2025 1:04pm Removal right labial cyst March 26, 2025 1:51pm POST OP March 27, 2025 1:49 pm Removal right labial cyst March 27 3:29pm POST OP April 03, 2025 2:07 pm 1 W FU April 11, 2025 9:45 am Reason for Visit Admit Date Inclusion cyst of vulva March 10, 2025 3:36pm Inclusion cyst of vulva March 26, 2025 1 :04pm Inclusion cyst of vulva March 27, 2025 1:49pm Inclusion cyst of vulva April 03, 2025 2:07pm Chief Complaint Admit Date CYST March 10, 2025 3:36 pm Removal right labial cyst March 26, 2025 12:00pm Removal right labial cyst March 26, 2025 1:04pm Removal right labial cyst March 26, 2025 1:51pm POST OP March 27, 2025 1:49 pm POST OP April 03, 2025 2:07 pm 1 W FU April 11, 2025 9:45 am 4 W FU May 09, 2025 11 :00am Reason for Visit Admit Date Inclusion cyst of vulva March 10, 2025 3:36pm Inclusion cyst of vulva March 26, 2025 1 :04pm Inclusion cyst of vulva March 27, 2025 1:49pm Inclusion cyst of vulva April 03, 2025 2:07pm Inclusion cyst of vulva April 11, 2025 9:45am Chief Complaint Admit Date CYST March 10, 2025 3:36 pm Removal right labial cyst March 26, 2025 12:00pm Removal right labial cyst March 26, 2025 1:04pm Removal right labial cyst March 26, 2025 1:51pm POST OP March 27, 2025 1:49 pm POST OP April 03, 2025 2:07 pm 1 W FU April 11, 2025 9:45 am 4 W FU May 09, 2025 11 :00am FOLLOW UP May 30, 2025 7:58am Reason for Visit Admit Date Inclusion cyst of vulva March 10, 2025 3:36pm Inclusion cyst of vulva March 26, 2025 1 :04pm Inclusion cyst of vulva March 27, 2025 1:49pm Inclusion cyst of vulva April 03, 2025 2:07pm Inclusion cyst of vulva April 11, 2025 9:45am Inclusion cyst of vulva May 09 11:00am Additional Source Comments INFORMATION SOURCE (unrecogn ized section and content) DATE CREATED AUTHOR 11/28/2020 [facility] DATE CREATED AUTHOR AUTHOR'S ORGANIZ ATION 04/13/2024 [facility] ([place]) DATE CREATED AUTHOR AUTHOR'S ORGANIZ ATION 07/25/2024 [facility] DATE CREATED AUTHOR AUTHOR'S ORGANIZ ATION 06/01/2025 [facility] Goals (unrecognized section and content) Goals may be documented in a n alternate sectionGoals may be documented in an alternate section No data available for this sectionGoals may be documented in an alternate section Patient Care team informatio n (unrecognized section and content) Team Status: Active Member Role Status Dates Dr. Odette Augustin MD Family Provider Active No Primary Care Physician Primary Care Provider Active Team Status: Inactive Member Role Status Dates No Primary Care Physician Primary Care Provider Active Start: March 10, 2025 End: March 10, 2025 No Primary Care Physician Referring Provider Active Start: March 10, 2025 End: March 10, 2025 Dr. Shabana Llamas MD Attending Provider Active Start: March 10, 2025 End: March 10, 2025 Team Status: Active Member Role/Relationship Status Dates Dr. Nancy Barahona MD Primary Care Provider Active Team Status: Inactive Member Role/Relationship Status Dates No Primary Care Physician Primary Care Provider Active Start: March 10, 2025 End: March 10, 2025 No Primary Care Physician Referring Provider Active Start: March 10, 2025 End: March 10, 2025 Dr. Shabana Llamas MD Attending Provider Active Start: March 10, 2025 End: March 10, 2025 Team Status: Inactive Member Role/Relationship Status Dates Dr. Shabana Llamas MD Attending Provider Active Start: March 26, 2025 End: March 26, 2025 Dr. Shabana Llamas MD Referring Provider Active Start: March 26, 2025 End: March 26, 2025 Dr. Nancy Barahona MD Primary Care Provider Active Start: March 26, 2025 End: March 26, 2025 Team Status: Active Member Role/Relationship Status Dates Dr. Shabana Llamas MD Attending Provider Active Start: March 26, 2025 Dr. Shabana Llamas MD Referring Provider Active Start: March 26, 2025 Dr. Shabana Llamas MD Other Provider Active Star t: March 26, 2025 Dr. Nancy Barahona MD Primary Care Provider Active Start: March 26, 2025 Team Status: Inactive Member Role/Relationship Status Dates Dr. Nancy Barahona MD Primary Care Provider Active Start: March 27, 2025 End: March 27, 2025 Dr. Nancy Barahona MD Referring Provider Active Start: March 27, 2025 End: March 27, 2025 Dr. Shabana Llamas MD Attending Provider Active Start: March 27, 2025 End: March 27, 2025 Team Status: Active Member Role/Relationship Status Dates Dr. Shabana Llamas MD Attending Provider Active Start: March 27, 2025 Dr. Shabana Llamas MD Referring Provider Active Start: March 27, 2025 Dr. Shabana Llamas MD Other Provider Active Star t: March 27, 2025 Dr. Nancy Baraohna MD Primary Care Provider Active Start: March 27, 2025 Team Status: Inactive Member Role/Relationship Status Dates Dr. Nancy Barahona MD Primary Care Provider Active Start: April 03, 2025 End: April 03, 2025 Dr. Nancy Barahona MD Referring Provider Active Start: April 03, 2025 End: April 03, 2025 Dr. Shabana Llamas MD Attending Provider Active Start: April 03, 2025 End: April 03, 2025 Team Status: Inactive Member Role/Relationship Status Dates Dr. Nancy Barahona MD Primary Care Provider Active Start: April 11, 2025 End: April 11, 2025 Dr. Nancy Barahona MD Referring Provider Active Start: April 11, 2025 End: April 11, 2025 Dr. Shabana Llamas MD Attending Provider Active Start: April 11, 2025 End: April 11, 2025 Team Status: Active Member Role/Relationship Status Dates Dr. Shabana Llamas MD Attending Provider Active Start: March 26, 2025 Dr. Shabana Llamas MD Referring Provider Active Start: March 26, 2025 Dr. Shabana Llamas MD Other Provider Active Star t: March 26, 2025 Dr. Nancy Barahona MD Primary Care Provider Active Start: March 26, 2025 Team Status: Inactive Member Role/Relationship Status Dates Dr. Shabana Llamas MD Attending Provider Active Start: March 26, 2025 End: March 26, 2025 Dr. Shabana Llamas MD Referring Provider Active Start: March 26, 2025 End: March 26, 2025 Dr. Nancy Barahona MD Primary Care Provider Active Start: March 26, 2025 End: March 26, 2025 Team Status: Active Member Role/Relationship Status Dates Dr. Shabana Llamas MD Attending Provider Active Start: March 26, 2025 Dr. Shabana Llamas MD Referring Provider Active Start: March 26, 2025 Dr. Shabana Llamas MD Other Provider Active Star t: March 26, 2025 Dr. Nancy Barahona MD Primary Care Provider Active Start: March 26, 2025 Team Status: Inactive Member Role/Relationship Status Dates Dr. Nancy Barahona MD Primary Care Provider Active Start: March 27, 2025 End: March 27, 2025 Dr. Nancy Barahona MD Referring Provider Active Start: March 27, 2025 End: March 27, 2025 Dr. Shabana Llamas MD Attending Provider Active Start: March 27, 2025 End: March 27, 2025 Team Status: Inactive Member Role/Relationship Status Dates Dr. Nancy Barahona MD Primary Care Provider Active Start: May 09, 2025 End: May 09, 2025 Dr. Nancy Barahona MD Referring Provider Active Start: May 09, 2025 End: May 09, 2025 Dr. Shabana Llamas MD Attending Provider Active Start: May 09, 2025 End: May 09, 2025 Team Status: Inactive Member Role/Relationship Status Dates Dr. Nancy Barahona MD Primary Care Provider Active Start: May 30, 2025 End: May 30, 2025 Dr. Nancy Barahona MD Referring Provider Active Start: May 30, 2025 End: May 30, 2025 Dr. Shabana Llamas MD Attending Provider Active Start: May 30, 2025 End: May 30, 2025 FOR RECORDS PERTAINING TO PATIENTS WHO ARE OR HAVE BEEN ENROLLED IN A CHEMICAL DEPENDENCY/SUBSTANCEABUSE PROGRAM, SOME INFORMATION MAY BE OMITTED. This clinical summary was aggregated from multiple sources. Caution should be exercised in using it in the provision of clinical care. This summary normalizes information from multiple sources, and as a consequence, information in this document may materially change the coding, format and clinical context of patient data. In addition, data may be omitted in some cases. CLINICAL DECISIONS SHOULD BE BASED ON THE PRIMARY CLINICAL RECORDS. [facility] provides no warranty or guarantee of the accuracy or completeness of information in this document.
[2025-08-02 11:48] LABS: Internal QC Validated? YES +Cl - CLEAR BKGD; Pregnancy, Serum, hCG Quali. NEGATIVE Negative; Record Kit Lot#, Serum Preg. 980607
[2025-08-02 11:59] LABS: Squamous Epithelial Cells - UA 0-5 SEEN /hpf (5-10)
--- NOTE | 2025-08-02 12:00 | RAD_ITS ---
PROCEDURE: CHEST 1 VIEW (PORTABLE) 08/02/2025 REASON FOR EXAM: COUGH TECHNIQUE: Frontal view of the chest. COMPARISON: None. FINDINGS: The lungs are adequately aerated bilaterally without pleural effusion, pneumothorax, or focal airspace disease. Cardiomediastinal structures are within normal limits. Osseous structures are age-appropriate. Unilateral metallic nipple ornamentation on the right. RAD/Chest 1 View (Portable) IMPRESSION: No evidence of acute cardiopulmonary abnormality. Reading Location: [id number]
[2025-08-02 12:06] LABS: AST(SGOT) 28 U/L (<=31); Alanine Aminotransfer ALT/SGPT 22 U/L (<=34); Albumin, Serum 4.4 g/dL (3.5-5.0); Alkaline Phosphatase 65 U/L (35-104); Anion Gap 11 (5-15); BUN 7 mg/dL (4-19); BUN/Creat Ratio 9.2 RATIO (10-20); Calcium,Total 8.9 mg/dL (7.6-11.0); Carbon Dioxide 24.7 mmol/L (21.0-32.0); Chloride 105 mmol/L (98-108); Estimated Creatinine Clearance 115.66 ml/min (50-250); Globulin 2.9 g/dL (2.2-4.2); Glucose 96 mg/dL (70-99); Potassium 4.0 mmol/L (3.3-5.1)
[2025-08-02 13:00] VITALS: BP 116/79
[2025-08-02 13:43] VITALS: BP 116/79; PULSE 77; RESP 17; TEMP 37.2; O2SAT 99
== END 2025-08-02 13:47 | disposition home or self-care (01) ==
PROVIDERS: Emergency Provider Emergency Medicine; PCP Internal Medicine; Visit Provider Emergency Medicine
DX: B34.9 Viral infection, unspecified (principal); R19.7 Diarrhea, unspecified; R10.9 Unspecified abdominal pain
CPT/HCPCS: 71045; 74176; 80053; 81001; 84703; 85025; 87631; 96361; 96374; 99283; Q9967; J2405